=== PATIENT | female | born 1955 | race Caucasian/White ===

== ENCOUNTER 2017-06-27 15:12 | Inpatient (IN) | payer OTHER ==
[~2017-06-27] VITALS: Ht 152.4 cm; Wt 65.3 kg
[2017-06-27 15:23] VITALS: BP 110/54
--- NOTE | 2017-06-27 16:09 | NUR ---
62F BIB FAMILY C/O RECTAL PAIN X TODAY. FAMILY STATES NO RECTAL BLEEDING AT THIS TIME. HX: DIALYSIS, DM, RENAL FAILURE, HTN, STROKE (20 YEARS AGO) 1X EPISODE VOMITING TODAY; SKIN IS WARM/DRY; AAOX2 WITH EVEN AND STEADY GAIT; LUNGS CLEAR BL; HR EVEN AND REGULAR; PT DENIES ANY FEVER, CP, SOB, OR COUGH AT THIS TIME; PATIENT STATES PAIN OF 10/10 AT THIS TIME; VSS; PATIENT POSITIONED FOR COMFORT; HOB ELEVATED; BEDRAILS UP X2; BED DOWN. ER MD MADE AWARE OF PT STATUS.
--- NOTE | 2017-06-27 17:00 | NUR ---
PATIENT HAS MINIMAL URINE OUTPUT FOR UA. DR. DAS MADE AWARE, WILL CONTINUE TO MONITOR.
[2017-06-27 17:03] LABS: BASOPHILS # (AUTO) 0.1 K/uL (0.00-0.22); BASOPHILS % (AUTO) 0.9 % (0.0-2.0); EOSINOPHILS # (AUTO) 0.2 K/uL (0-0.4); EOSINOPHILS % (AUTO) 1.4 % (0.0-4.0); HEMATOCRIT 25.5 % (36-48); HEMOGLOBIN 8.3 g/dL (12.0-16.0); LYMPHOCYTES # (AUTO) 1.1 K/uL (2.5-16.5); MEAN CORPUSCULAR HEMOGLOBIN 29 pg (27-31); MEAN CORPUSCULAR HGB CONC 33 g/dL (33-37); MEAN CORPUSCULAR VOLUME 89 fL (80-94); MONOCYTES % (AUTO) 7.2 % (1.7-9.3); NEUTROPHILS # (AUTO) 11.6 K/uL (1.8-7.7); NEUTROPHILS % (AUTO) 82.5 % (42.2-75.2); PLATELET COUNT (AUTO) 302 K/uL (140-450); RED BLOOD CELL COUNT(AUTO) 2.86 MIL/uL (4.20-5.40); RED CELL DISTRIBUTION WIDTH 12.8 % (11.6-13.7)
[2017-06-27 17:27] LABS: ANION GAP 14.3 (8-16); CARBON DIOXIDE 27.7 mmol/L (21-32)
[2017-06-27 17:33] LABS: CREATININE 6.4 mg/dL (0.6-1.3)
[2017-06-27 17:35] LABS: ALBUMIN 2.2 g/dL (3.4-5.0); TOTAL BILIRUBIN 0.5 mg/dL (0.0-1.0)
[2017-06-27] MEDS ORDERED: MORPHINE SULFATE 4 MG/ML SYR IVP ONE (17:50)
[2017-06-27] MEDS ORDERED: metroNIDAZOLE 500 MG/NS PREMIX 100 ML IV ONE (18:25)
[2017-06-27] MEDS ORDERED: AMLODIPINE BESYLATE 10MG TABLE (18:41)
[2017-06-27] MEDS ORDERED: CLONIDINE (18:41)
[2017-06-27] MEDS ORDERED: NACL 0.9% 1,000 ML IV SCH (18:43)
[2017-06-27] MEDS ORDERED: LEVOFLOXACIN 750 MG/D5W PREMIX 150 ML IV SCH (18:45)
[2017-06-27] MEDS ORDERED: MORPHINE SULFATE 2 MG/ML SYR IVP PRN (18:45)
[2017-06-27] MEDS ORDERED: LORazepam 2 MG/ML VIAL IVP PRN (18:45)
[2017-06-27] MEDS ORDERED: ACETAMINOPHEN 325 MG TAB PO PRN (18:45)
[2017-06-27] MEDS ORDERED: HYDROcodone/APAP 5/325 MG 1 TAB TAB PO PRN (18:45)
[2017-06-27] MEDS ORDERED: DEXTROSE 50% 50 ML SYR IVP PRN (18:55)
[2017-06-27] MEDS ORDERED: INSULIN LISPRO SLIDING SCALE 100 UNITS/ML VIAL SUBQ PRN (18:55)
--- NOTE | 2017-06-27 19:05 | NUR ---
received report from lena patricio.
--- NOTE | 2017-06-27 19:30 | NUR ---
Pt report given to ELIESER ARAUZ ON TELEMETRY FLOOR. Transfer of care at this time.
--- NOTE | 2017-06-27 19:30 | NUR ---
Pt report given to KRISTY ARAUZ. Transfer of care at this time.
--- NOTE | 2017-06-27 19:36 | NUR ---
PT ARRIVED ON UNIT VIA GURNEY, TRANSFERRED PT TO BED, PT TOLERATED WELL, REPORT RECEIVED FROM ER NURSE KRISTY ARAUZ, PT STABLE, IV TO L AC 22G SL, PATENT, INTACT. PT ON ROOM AIR NO SOB, PT STATED HAVING NO PAIN AT THIS MOMENT, INITIAL ASSESSMENT DONE, ALL SAFETY PRECAUTION MET, WILL CONTINUE TO MONITOR. Addendum: 06/28/17 at 0127 by Nay Xie RN WRONG TIME
[2017-06-27 19:40] LABS: APPEARANCE,URINE TURBID (CLEAR); BILIRUBIN,URINE 1+ (NEGATIVE); BLOOD, URINE 1+ (NEGATIVE); COLOR,URINE YELLOW (YELLOW); LEUKOCYTE ESTERASE ,URINE 1+ (NEGATIVE); NITRITE, URINE NEGATIVE (NEGATIVE); UGLUCOSE TRACE (NEGATIVE)
[2017-06-27 19:49] LABS: RBC,URINE 0-5 (RARE) /HPF (0-5); WBC,URINE 80-100 /HPF (0-5)
[2017-06-27] MEDS ORDERED: hydrALAZINE 20 MG/ML VIAL IVP ONE (19:50)
[2017-06-27 20:30] VITALS: BP 162/63
--- NOTE | 2017-06-27 20:36 | NUR ---
PT ARRIVED ON UNIT VIA GURNEY, TRANSFERRED PT TO BED, PT TOLERATED WELL, REPORT RECEIVED FROM ER NURSE KRISTY RN, PT STABLE, IV TO L AC 22G SL, PATENT, INTACT. PT ON ROOM AIR NO SOB, PT STATED HAVING NO PAIN AT THIS MOMENT, INITIAL ASSESSMENT DONE, ALL SAFETY PRECAUTION MET, WILL CONTINUE TO MONITOR.
[2017-06-27] MEDS: metroNIDAZOLE 500 MG/NS PREMIX 100 ML IV SCH (21:00)
[2017-06-27] MEDS: BLOOD GLUCOSE MONITORING 1 DEV DEV FS SCH (21:00)
--- NOTE | 2017-06-27 21:04 | NUR ---
DUE MEDICATION GIVEN, PT TOLERATED WELL, NO DISTRESS NOTED, CALL LIGHT WITHIN REACH, WILL CONTINUE TO MONITOR.
[2017-06-27 21:45] LABS: CREATINE KINASE MB 0.7 ng/mL (0-3.6)
[2017-06-28] VITALS: BP 110/50
--- NOTE | 2017-06-28 | NUR ---
PT VOMITED, YELLOW, BILE COLORED EMESIS, ZOFRAN GIVEN, PT TOLERATE WELL, NO DISTRESS NOTED, CALL LIGHT WITHIN REACH, WILL CONTINUE TO MONITOR.
[2017-06-28 02:51] LABS: CREATINE KINASE MB 0.5 ng/mL (0-3.6)
[2017-06-28 04:00] VITALS: BP 131/53
[2017-06-28] MEDS: metroNIDAZOLE 500 MG/NS PREMIX 100 ML IV SCH ×3 (05:14→20:27)
[2017-06-28] MEDS: ONDANSETRON 4 MG/2 ML VIAL IVP PRN ×2 (05:18)
--- NOTE | 2017-06-28 05:18 | NUR ---
DUE MEDICATION GIVEN, PT FEELING NAUSEA, ZOFRAN GIVEN, PT TOLERATE WELL, NO DISTRESS NOTED, CALL LIGHT WITHIN REACH, WILL CONTINUE TO MONITOR.
--- NOTE | 2017-06-28 07:20 | NUR ---
ENDORSED PLAN OF CARE TO DAY SHIFT NURSE SIGRID ARAUZ, PT STABLE, NO DISTRESS NOTED, CALL LIGHT WITHIN REACH.
--- NOTE | 2017-06-28 07:22 | NUR ---
RECEIVED PT REPORT AT BEDSIDE PT AWAKE AND ALERT TO SELF. NO S/S OF DISTRESS. PT ON RA. NO SOB. NO COMPLAINTS OF PAIN AT THIS TIME. IV LAC 22G NS 10ML/HR. BED LOWERED WITH CALL LIGHT WITHIN REACH. WILL CONTINUE TO MONITOR.
[2017-06-28] MEDS: BLOOD GLUCOSE MONITORING 1 DEV DEV FS SCH ×4 (07:42→17:07)
[2017-06-28 07:49] LABS: HEMATOCRIT 22.7 % (36-48); HEMOGLOBIN 7.5 g/dL (12.0-16.0); MEAN CORPUSCULAR HEMOGLOBIN 30 pg (27-31); MEAN CORPUSCULAR HGB CONC 33 g/dL (33-37); MEAN CORPUSCULAR VOLUME 90 fL (80-94); PLATELET COUNT (AUTO) 218 K/uL (140-450); RED BLOOD CELL COUNT(AUTO) 2.53 MIL/uL (4.20-5.40); WHITE BLOOD COUNT (AUTO) 9.9 K/uL (4.8-10.8)
[2017-06-28 08:00] VITALS: BP 130/85
[2017-06-28 08:11] LABS: ANION GAP 14.4 (8-16); CARBON DIOXIDE 25.7 mmol/L (21-32); POTASSIUM 4.1 mmol/L (3.5-5.1)
[2017-06-28 08:27] LABS: LYMPHOCYTES % (MANUAL) 16 % (20-46); MONOCYTES % (MANUAL) 4 % (5-12)
[2017-06-28] MEDS ORDERED: INSULIN LISPRO SLIDING SCALE 100 UNITS/ML VIAL SUBQ PRN (08:35)
[2017-06-28] MEDS ORDERED: DEXTROSE 50% 50 ML SYR IVP PRN (08:35)
[2017-06-28] MEDS ORDERED: HYDROcodone/APAP 5/325 MG 1 TAB TAB PO PRN (08:35)
[2017-06-28] MEDS ORDERED: ACETAMINOPHEN 325 MG TAB PO PRN (08:35)
[2017-06-28] MEDS ORDERED: LORazepam 2 MG/ML VIAL IVP PRN (08:40)
[2017-06-28] MEDS ORDERED: MORPHINE SULFATE 2 MG/ML SYR IVP PRN (08:40)
[2017-06-28] MEDS ORDERED: ONDANSETRON 4 MG/2 ML VIAL IVP PRN (08:45)
[2017-06-28] MEDS: NACL 0.9% 1,000 ML IV SCH (08:45)
[2017-06-28 08:49] LABS: CREATININE 7.2 mg/dL (0.6-1.3)
--- NOTE | 2017-06-28 08:50 | NUR ---
RECEIVED CALL BACK FROM DR BIRTTON REGARDING CRITICAL VALUE OF CREATININE 7.2, DR ORDER TO LOOK UP PATIENT'S HEMODIALYSIS DR; HOWEVER, JONES GRANDDAUGHTER WAS NOTIFIED IF PATIENT HAS A HEMODIALYSIS DR HOWEVER SHE STATED, "MY GRANDMA JUST STARTED DIALYSIS ON Sunday06/25/17 AND WE REQUESTED HER PRIMARY DR FOR A REFERRAL FOR A DIALYSIS DR BUT I WON'T HAVE KNOW UNTIL SUNDAY." PAGED DR BRITTON TO NOTIFY HER OF GRANDDAUGHTERS UPDATE, AWAITING CALL BACK. PATIENT IS NAUSEAS AND UNABLE TO EAT AT THIS TIME, PLACED ORDERS FOR CLEAR LIQUIDS. WAS ALSO NOTIFIED OF FAMILY REQUESTING FOR EVALUATION FOR PATIENT TO HAVE PHYSICAL THERAPY AND SNF PLACEMENT, ORDERED TO PLACE ORDERS.
[2017-06-28] MEDS ORDERED: CLINICAL MONITORING MC PRN (09:40)
--- NOTE | 2017-06-28 10:43 | NUR ---
PATIENT HAS BEEN SCREENED AND CATEGORIZED MODERATE NUTRITION RISK. PATIENT WILL BE SEEN WITHIN 3-5 DAYS OF ADMISSION. 06/30/17 - 07/02/[address]
[2017-06-28 12:00] VITALS: BP 129/54
--- NOTE | 2017-06-28 12:00 | NUR ---
RECEIVED ORDERS TO PLACE ADAMS CATHETER IF PATIENT BLADDER SCAN RESULTS IN MORE THAN 300CC OF URINE. BLADDER SCAN RESULTED WITH 155CC OF URINE, NO ADAMS CATHETER INDICATED.
--- NOTE | 2017-06-28 12:30 | NUR ---
PT IS A BIT LETHARGIC, PT VOMITED X2. MEDICATED WITH ZOFRAN. STARTED A NEW IV LINE 22G TO INFUSE BLOOD. WILL ALSO GIVE PRUNE JUICE TO HELP HAVE A BOWEL MOVEMENT D/D FECAL IMPACTION. NO S/S OF DISTRESS.WILL CONTINUE TO MONITOR.
--- NOTE | 2017-06-28 12:36 | NUR ---
CM NOTE INITIAL REVIEW FAXED TO [facility] [phone] EDITH # [phone]. AWAITING PHYSICAL THERAPY EVALUATION
--- NOTE | 2017-06-28 14:20 | NUR ---
RECEIVED CALL FROM DR DEIDRE DAWKINS, UPDATED DR OF PATIENT'S BMP LAB RESULTS. IS TO PLACE ORDERS.
--- NOTE | 2017-06-28 15:26 | NUR ---
CANDACE NOTE FAXED ORDER FOR SNF TO [facility] [phone] EDITH PH# [phone] PER LINDA SZYMANSKI, SHE SPOKE WITH PATIENT'S GRANDDAUGHTER WHO SAID THAT FAMILY IS AGREEABLE TO SNF AND THEY PREFER [facility] [facility] PER [facility] CANDACE SHARMA SEND INQUIRY TO [place] FAXED INQUIRY TO [facility] [phone] ATTN: CHARLIE PH# [phone]
[2017-06-28 16:00] VITALS: BP 146/60
--- NOTE | 2017-06-28 16:00 | NUR ---
DR BRITTON ORDERED TO HAVE XR OF SMALL BOWEL FOLLOW THROUGH DONE TO R/O SBO.
--- NOTE | 2017-06-28 16:06 | NUR ---
BLOOD TRANSFUSION BEGUN.
--- NOTE | 2017-06-28 17:00 | NUR ---
PATIENT TOLERATING BLOOD TRANSFUSION WELL, PATIENT DENIES, SOB, DYSPNEA, AND PAIN. PATIENT RESTING COMFORTABLY IN BED. BED IN LOW POSITION WITH CALL LIGHT WITHIN REACH.
--- NOTE | 2017-06-28 18:31 | NUR ---
RECEIVED CALL FROM FIELD SERVICE SPECIALIST, COULD NOT PERFORM XR SMALL BOWEL FOLLOW THROUGH D/T PATIENT RETAINING OF IV CONTRAST.
--- NOTE | 2017-06-28 19:20 | NUR ---
pt report given to shift boss nurse at bedside. no s/s of distress.
--- NOTE | 2017-06-28 19:22 | NUR ---
RECEIVED REPORT FROM AM SHIFT. PT IS AWAKE AT THIS TIME. ON ROOM AIR, ATTACHED TO TELE BOX. IV ACCESS AT RIGHT AC 22G, ON GOING BLOOD TRANSFUSION AT THIS TIME. LEFT AC 22G, IVF INFUSING, PATENT, INTACT. HD ACCESS AT RIGHT SUBCLAVIAN. BED IN LOW POSITION, SAFETY MEASURE ENSURE, CALL LIGHT WITHIN REACH. WILL CONTINUE TO MONITOR.
[2017-06-28 20:00] VITALS: BP 155/67
[2017-06-28] MEDS: LACTULOSE 20 GM/30 ML UDC PO SCH (20:27)
[2017-06-28 22:36] LABS: HEMATOCRIT 26.1 % (36-48); HEMOGLOBIN 8.5 g/dL (12.0-16.0)
--- NOTE | 2017-06-28 22:40 | NUR ---
LOUIS MARION NOTIFIED OF HD SCHEDULE TOMORROW. STILL TO SIGN HD CONSENT.
--- NOTE | 2017-06-28 22:55 | NUR ---
ACCUCHECK - BLOOD SUGAR LEVEL 78MG/DL
--- NOTE | 2017-06-28 23:00 | NUR ---
BLADDER SCANNED WITH BLADDER SCANNER WITH RESULT OF 355 ML. WILL INSERT ADAMS CATH ORDERED.
--- NOTE | 2017-06-28 23:25 | NUR ---
ADAMS CATH INSERTED WITH DARK CRISTÓBAL URINE, URINE OUTPUT OF APPROXIMATELY 300ML NOTED AT THIS TIME. PT TOLERATED WELL. NO SIGNS OF DISTRESS.
[2017-06-29] VITALS (8 sets, daily range): BP systolic 141–179; BP diastolic 56–89
--- NOTE | 2017-06-29 02:30 | NUR ---
PT. RESTING, NO SOB NOTED. NO DISTRESS NOTED. WILL CONTINUE TO MONITOR.
[2017-06-29] MEDS: NACL 0.9% 1,000 ML IV SCH (03:23)
[2017-06-29] MEDS: metroNIDAZOLE 500 MG/NS PREMIX 100 ML IV SCH ×2 (04:40→13:05)
--- NOTE | 2017-06-29 05:30 | NUR ---
MORNING CARE DONE.
[2017-06-29] MEDS ORDERED: hydrALAZINE 10 MG TAB PO PRN (06:35)
--- NOTE | 2017-06-29 06:36 | NUR ---
DR. GIRON NOTIFIED OF ELEVATED BP 164/56 AT 0400 AND 161/64 AT 0600 WITH ORDERS MADE. WILL CONTINUE TO MONITOR. PT ASYMPTOMATIC, NO SIGNS OF DISTRESS. DENIES ANY PAIN AT THIS TIME.
[2017-06-29] MEDS: BLOOD GLUCOSE MONITORING 1 DEV DEV FS SCH ×3 (06:52→16:15)
--- NOTE | 2017-06-29 07:14 | NUR ---
REPORT GIVEN TO DAVONTE MATTA FOR CONTINUITY OF CARE.
--- NOTE | 2017-06-29 07:20 | NUR ---
RECEIVED PT REPORT AT BEDSIDE FROM NIGHT NURSE, PT IS AWAKE AND ALERT TO SELF. NO S/S OF ACUTE DISTRESS. PT ON RA. NO SOB. NO COMPLAINTS OF PAIN AT THIS TIME. DENIES N/V. IV LAC 22G WITH IVF'S INFUSING WELL, IV ON THE RIGHT AC SL PATENT AND INTACT. NOTED ADAMS CATHETER DRAINING YELLOW URINE. SKIN INTACT, WITH NOTED +2 PITTING EDEMA ON THE LEFT HAND. DISCUSSED PATIENT POC FOR TODAY AND PATIENT VERBALIZED UNDERSTANDING; HOWEVER PATIENT NEEDS REINFORCEMENT OF CARE D/T EPISODES OF CONFUSION. BED LOWERED WITH CALL LIGHT WITHIN REACH. SAFETY AND FALL PRECAUTIONS ARE IN PLACE.
[2017-06-29 07:37] LABS: BASOPHILS # (AUTO) 0.3 K/uL (0.00-0.22); BASOPHILS % (AUTO) 2.9 % (0.0-2.0); EOSINOPHILS # (AUTO) 0.3 K/uL (0-0.4); EOSINOPHILS % (AUTO) 3.2 % (0.0-4.0); HEMATOCRIT 25.1 % (36-48); HEMOGLOBIN 8.4 g/dL (12.0-16.0); LYMPHOCYTES # (AUTO) 1.4 K/uL (2.5-16.5); LYMPHOCYTES % (AUTO) 15.7 % (20.5-51.1); MEAN CORPUSCULAR HEMOGLOBIN 30 pg (27-31); MEAN CORPUSCULAR HGB CONC 33 g/dL (33-37); MEAN CORPUSCULAR VOLUME 89.1 fL (80-94); MONOCYTES # (AUTO) 0.5 K/uL (0.8-1.0); NEUTROPHILS # (AUTO) 6.2 K/uL (1.8-7.7); NEUTROPHILS % (AUTO) 72.2 % (42.2-75.2); PLATELET COUNT (AUTO) 202 K/uL (140-450); RED BLOOD CELL COUNT(AUTO) 2.81 MIL/uL (4.20-5.40); RED CELL DISTRIBUTION WIDTH 13.1 % (11.6-13.7); WHITE BLOOD COUNT (AUTO) 8.7 K/uL (4.8-10.8)
--- NOTE | 2017-06-29 07:50 | NUR ---
PATIENT BP IS 172/65, RECHECKED AND WAS 177/70, DR DAWKINS ORDERED TO GIVE CLONIDINE 0.1 MG PO X ONE. WILL PLACE ORDERS. PATIENT DENIES DYSPNEA, SOB, AND PAIN. PATIENT IS ASYMPTOMATIC.
[2017-06-29 07:53] LABS: ANION GAP 18.7 (8-16); CARBON DIOXIDE 21.5 mmol/L (21-32); POTASSIUM 4.2 mmol/L (3.5-5.1)
[2017-06-29 08:07] LABS: CREATININE 8.6 mg/dL (0.6-1.3)
[2017-06-29 08:27] LABS: ALBUMIN 1.9 g/dL (3.4-5.0); ANION GAP 19.5 (8-16); CARBON DIOXIDE 20.7 mmol/L (21-32); POTASSIUM 4.2 mmol/L (3.5-5.1); TOTAL BILIRUBIN 0.5 mg/dL (0.0-1.0)
[2017-06-29] MEDS ORDERED: cloNIDine 0.1 MG TAB PO SCH (08:30)
[2017-06-29 08:34] LABS: CREATININE 8.4 mg/dL (0.6-1.3)
[2017-06-29] MEDS: LACTULOSE 20 GM/30 ML UDC PO SCH (08:37)
--- NOTE | 2017-06-29 08:38 | NUR ---
PATIENT BP IS 179/70, HD NURSE IS AT BEDSIDE STATED TO HOLD CLONIDINE 0.1 MG PO MEDICATION FOR NOT TO SEE HOW PATIENT WILL TOLERATE HD.
[2017-06-29] MEDS ORDERED: SODIUM PHOSPHATE 118 ML ENEM RC SCH (09:00)
--- NOTE | 2017-06-29 10:13 | NUR ---
CANDACE NOTE CONCURRENT REVIEW FAXED TO [facility] [phone] EDITH PH# [phone]. [facility] PH# [phone] THEY ARE ACCEPTING PATIENT AND WHEN READY FOR DISCHARGE PATIENT CAN GO TO [address] CAUSEY. PER JELANI GAMBOA SHE WILL ARRANGE PATIENT'S TRANSPORT FOR DIALYSIS AND SHE IS MADE AWARE OF PATIENT'S DIALYSIS CENTER AND SCHEDULE GIVEN BY PATIENT'S GRAND DAUGHTER JONES PH# [phone]. PER [facility] CANDACE SHARMA FOR [facility] AUTH# [id number], [facility] AUTH# [id number]. CHARGE NURSE LAUREL SANTA.
--- NOTE | 2017-06-29 11:00 | NUR ---
PATIENT BP IS STILL ELEVATED AT 168/64 HR OF 57, HD NURSE AT BEDSIDE WILL GIVE CLONIDINE 0.1 MG PO MEDICATION FOR ELEVATED BP.
[2017-06-29] MEDS ORDERED: amLODIPine 5 MG TAB PO SCH (12:28)
[2017-06-29] MEDS ORDERED: hydrALAZINE 25 MG TAB PO PRN (13:15)
--- NOTE | 2017-06-29 13:19 | NUR ---
ADMINISTERED SCHEDULED MEDICATIONS, PATIENT SWALLOWED WITHOUT DIFFICULTY. ENEMA WAS NOT GIVEN EARLIER D/T PATIENT RECEIVING DIALYSIS, OUTPUT OF 700CC. HD IS DONE AND ENEMA WAS GIVEN.
[2017-06-29] MEDS ORDERED: EPOETIN ALFA 10,000 UNITS/ML VIAL IV SCH (13:28)
--- NOTE | 2017-06-29 14:45 | NUR ---
PT NOTES 1035/1230/1445 Attempted PT tx in am, but patient found to be on HD, reattempted after lunch and patient just getting off HD. Returned later and patient refused PT tx d/t being too tired from HD, edu on benefits of mobility, but cont to refuse. Patient for possible d/c today. Nursing aware.
--- NOTE | 2017-06-29 15:07 | NUR ---
SPOKE WITH AMRIT ARAUZ AND GAVE PATIENT REPORT, PATIENT WILL BE GOING TO ROOM 218C WITH IV ABX, ADAMS CATHETER WILL BE KEPT IN PLACE, RIGHT AC 22 [address] IN PLACE FOR CONTINUING OF IV ABX.
[2017-06-29] MEDS ORDERED: METR500S14 IV (15:17)
[2017-06-29] MEDS ORDERED: LEVO25SO IV (15:19)
--- NOTE | 2017-06-29 19:20 | NUR ---
DISCONTINUED IV ON THE LEFT AC WITH CANNULA INTACT D/T INFILTRATION. GAVE PATIENT REPORT AT BEDSIDE TO NIGHT NURSE, PATIENT ENDORSED IN STABLE CONDITION, PATIENT'S SISTER IS AT BEDSIDE.
--- NOTE | 2017-06-29 19:30 | NUR ---
RECEIVED REPORT FROM SIGRID ARAUZ, PT A/OX4 ON ROOM AIR. PT WILL BE TRANSFERRED VERY SOON, PT WILL LEAVE HOSPITAL WITH 22G IV TO LEFT AC AND ADAMS CATHETER IN PLACE. PT IN STABLE CONDITION, FAMILY MEMBER IN ROOM, WAITING WITH HER.
--- NOTE | 2017-06-29 19:35 | NUR ---
PT LEFT UNIT VIA WHEELCHAIR, ACCOMPANIED BY TRANSPORTER AND FAMILY MEMBER, IN STABLE CONDITION. REMOVED TELE MONITOR 28, IV TO LEFT AC IN PLACE, AND ADAMS CATHETER IN PLACE.
[2017-06-29] MEDS ORDERED: LEVOFLOXACIN 500 MG/D5W PREMIX 100 ML IV SCH (21:00)
[2017-06-30] MEDS ORDERED: amLODIPine 5 MG TAB PO SCH (09:00)
[2017-07-02] MEDS ORDERED: EPOETIN ALFA 10,000 UNITS/ML VIAL IV SCH (09:00)
== END 2017-06-29 19:30 | DRG 254 ==
LOC: MED 15:12 → MTU 18:43
PROVIDERS: ADMIT Hospitalist; ATTEND Hospitalist
PROC: 30233P1 Transfusion of Nonautologous Frozen Red Cells into Peripheral Vein, Percutaneous Approach (ICD-10-PCS; principal; 2017-06-28)
PROC: 5A1D70Z Performance of Urinary Filtration, Intermittent, Less than 6 Hours Per Day (ICD-10-PCS; 2017-06-29)
DX: K62.89 Other specified diseases of anus and rectum (principal); E43 Unspecified severe protein-calorie malnutrition; I12.0 Hypertensive chronic kidney disease with stage 5 chronic kidney disease or end stage renal disease; N18.6 End stage renal disease; E11.22 Type 2 diabetes mellitus with diabetic chronic kidney disease; K56.41 Fecal impaction; E78.5 Hyperlipidemia, unspecified; D50.9 Iron deficiency anemia, unspecified; D63.1 Anemia in chronic kidney disease; K31.9 Disease of stomach and duodenum, unspecified; N39.0 Urinary tract infection, site not specified; Z99.2 Dependence on renal dialysis; Z90.710 Acquired absence of both cervix and uterus; Z90.49 Acquired absence of other specified parts of digestive tract; Z79.2 Long term (current) use of antibiotics; Z79.4 Long term (current) use of insulin; Z79.891 Long term (current) use of opiate analgesic; Z79.899 Other long term (current) drug therapy
CPT/HCPCS: 36415; 74018; 80048; 80053; 81001; 82150; 82550; 82553; 82948; 83690; 83735; 84100; 84484; 85018; 85025; 86886; 86900; 86901; 86920; 87081; 87086; 87186; 90935; 96365; 97110; 97140; 99285; C1758; J0360; J0885; J1815; J1956; J2270; J2405; J3490; J7030; P9016

== ENCOUNTER 2019-01-18 15:00 | Inpatient (IN) | payer OTHER ==
[~2019-01-18] VITALS: Ht 149.9 cm; Wt 59.9 kg
[2019-01-18 15:00] VITALS: BP_SYST 257; BP_DIAS 133; BP_DIAS 145
[~2019-01-18 15:00] MED LIST: AMLODIPINE BESYLATE 10MG TABLE; CLONIDINE; LEVO25SO IV; METR500S14 IV
--- NOTE | 2019-01-18 15:00 | NUR ---
BIBA FROM [facility], C/O SOB, CHEST AND BODY PAIN, X1 HR. PT MISSED HER , , AND TODAY DIALYSIS. SPO2 94% ON O2 4L NC. FIRST BP READING UNREADABLE/145, SECOND BP READING 257/133 HX ANEMIA, HTN, DM, ESRD (TTHS) RX HYDRALAZINE, PHOSLO, LOSARTAN, SEVELAMER, MELATONIN. PT SPANISHING SPEAKING.AWAKE, ALERT.ABLE TO MAKE SIMPLE NEEDS KNOWN. LABORED SHALLOW TACHYPENEA NOTED. RR: 35S .BEDSIDE MONITOR SHOWS SR. PT LOOKS DUSKY AND PALE. HAS IV # 20 TO RIGHT WRIST AND PT HAS ONE HD ACCESS TO RIGHT CHEST. PT STATED SHE MISSED SUNDAY DIALYSIS DUE TO HD ACCESS DID NOT WORK. PT WENT TO DIALYSIS CENTER TODAY.DUE TO PT'S RR AND HIGH BP SO UNABLE TO GIVE PT DIALYSIS. PATIENT POSITIONED FOR COMFORT; HOB ELEVATED; BEDRAILS UP X2; BED DOWN. ER MD MADE AWARE OF PT STATUS.
--- NOTE | 2019-01-18 15:00 | NUR ---
Patient BIBA ALS, transferred to bed 6. RN evaluating patient at bedside.
--- NOTE | 2019-01-18 15:13 | NUR ---
Dr. Baugh evaluating patient at bedside.
[2019-01-18] MEDS ORDERED: cloNIDine 0.1 MG TAB PO ONE (15:15)
[2019-01-18] MEDS ORDERED: hydrALAZINE 20 MG/ML VIAL IVP ONE (15:15)
--- NOTE | 2019-01-18 15:20 | NUR ---
process technician at bedside.
[2019-01-18 15:46] LABS: HEMATOCRIT 38.1 % (36-48); HEMOGLOBIN 12.6 g/dL (12.0-16.0); MEAN CORPUSCULAR HEMOGLOBIN 33 pg (27-31); MEAN CORPUSCULAR HGB CONC 33 g/dL (33-37); MEAN CORPUSCULAR VOLUME 98.7 fL (80-94); PLATELET COUNT (AUTO) 275 K/uL (140-450); RED BLOOD CELL COUNT(AUTO) 3.86 MIL/uL (4.20-5.40); RED CELL DISTRIBUTION WIDTH 14.7 % (11.6-13.7); WHITE BLOOD COUNT (AUTO) 10.3 K/uL (4.8-10.8)
[2019-01-18] MEDS ORDERED: SEVE800T6 PO (16:05)
[2019-01-18] MEDS ORDERED: HYDR100T79 PO (16:05)
[2019-01-18] MEDS ORDERED: MELA5TAB6 PO (16:05)
[2019-01-18] MEDS ORDERED: PHO667 PO (16:05)
[2019-01-18] MEDS ORDERED: LOSA50TA57 PO (16:05)
[2019-01-18 16:06] LABS: EOSINOPHILS % (MANUAL) 2 % (0-4); LYMPHOCYTES % (MANUAL) 3 % (20-46); MONOCYTES % (MANUAL) 3 % (5-12)
[2019-01-18 16:09] LABS: ALBUMIN 3.7 g/dL (3.4-5.0); ANION GAP 33.2 (8-16); TOTAL BILIRUBIN 0.7 mg/dL (0.0-1.0)
[2019-01-18 16:11] LABS: CREATININE 15.8 mg/dL (0.6-1.3); POTASSIUM 6.2 mmol/L (3.5-5.1)
[2019-01-18] MEDS ORDERED: INSULIN REGULAR, HUMAN 100 UNIT/ML VIAL SUBQ ONE (16:15)
[2019-01-18] MEDS ORDERED: DEXTROSE 50% 50 ML SYR IVP ONE (16:15)
[2019-01-18] MEDS ORDERED: SODIUM POLYSTYRENE 15 GM/60 ML UDBTL PO ONE (16:15)
[2019-01-18] MEDS ORDERED: ALBUTEROL 0.083% 2.5 MG/3 ML NEBU INH ONE (16:15)
--- NOTE | 2019-01-18 16:23 | NUR ---
Breathing treatment administered at bedside by respiratory therapist.
--- NOTE | 2019-01-18 17:00 | NUR ---
PT RESTING IN BED. PT STATED SHE FEELS BETTER.
[2019-01-18] MEDS ORDERED: NACL 0.9% 1,000 ML IV SCH (17:05)
[2019-01-18] MEDS ORDERED: HYDROcodone/APAP 7.5/325 MG 1 TAB PO PRN (17:05)
[2019-01-18] MEDS ORDERED: ACETAMINOPHEN 325 MG TAB PO PRN (17:05)
[2019-01-18] MEDS ORDERED: MORPHINE SULFATE 2 MG/ML SYR IVP PRN (17:05)
[2019-01-18] MEDS ORDERED: DOCUSATE SODIUM 100 MG GELCAP PO PRN (17:05)
[2019-01-18] MEDS ORDERED: ONDANSETRON 4 MG/2 ML VIAL IM/IVP PRN (17:05)
[2019-01-18] MEDS ORDERED: LORazepam 2 MG/ML VIAL IVP ONE (17:30)
--- NOTE | 2019-01-18 17:30 | NUR ---
CALLED TELE CHARGE NURSE, THE BED IS NOT REDAY YET.
[2019-01-18 18:15] VITALS: BP 210/89
--- NOTE | 2019-01-18 18:15 | NUR ---
PT AWAKE, ALERT. ON O2 NC 3L/MIN WITH O2 SATS 98%. TRANSFERRED PT TO TELE 115. ALL PERSONAL BELONGINGS WITH PT. REPORT GIVEN TO YOANA ARAUZ.
--- NOTE | 2019-01-18 18:15 | NUR ---
RECEIVED PT FROM ER NURSE, ADELAIDE, PT IS AWAKE AND ON O2 3L NC, PERIPHERAL LINE ON THE RT AC G. 20 ON SALINE LOCK, HAS A RT UPPER CHEST PORT FOR DIALYSIS, DIALYSIS IS EVERY T-- S, PT IS LETHARGIC, VITAL SIGNS TAKEN AND BP IS 210/89, PULSE IS 84, TEMPERATURE IS 97.3 AND O2 SATURATION IS 98%, NO SIGN OF DISTRESS NOTED, RESPIRATION IS EVEN, WILL CONTINUE TO MONITOR PT.
--- NOTE | 2019-01-18 18:20 | NUR ---
MRSA SWAB DONE AND SAMPLE WAS SENT TO LAB.
[2019-01-18 18:24] LABS: PROTHROMBIN TIME 10.4 secs (10.8-13.4)
[2019-01-18 18:35] LABS: CHOL/HDL RATIO 3.1 (1-4.5); FREE T4 (FREE THYROXINE) 1.21 ng/dL (0.76-1.46); MAGNESIUM 2.8 mg/dL (1.8-2.4); THYROID STIMULATING HORMONE 3.58 uIU/mL (0.34-3.74)
[2019-01-18] MEDS ORDERED: DEXTROSE 50% 50 ML SYR IVP PRN (18:50)
[2019-01-18] MEDS ORDERED: MELATONIN 3 MG TAB PO PRN (18:50)
[2019-01-18] MEDS ORDERED: INSULIN LISPRO SLIDING SCALE 100 UNITS/ML VIAL SUBQ PRN (18:50)
[2019-01-18] MEDS ORDERED: cloNIDine 0.1 MG TAB PO PRN (18:50)
[2019-01-18 19:02] LABS: PHOSPHORUS 12.1 mg/dL (2.5-4.9)
--- NOTE | 2019-01-18 19:20 | NUR ---
ENDORSED PT TO LOBBY CONCIERGE NURSEPAULINA FOR CONTINUITY OF CARE.
--- NOTE | 2019-01-18 19:21 | NUR ---
RECEIVED BEDSIDE REPORT FROM DAY RN. PT IS AAOX2. ON NC 3L O2. RR HIGH 26. B/P ELEVATED MD IS AWARE. C/C SOB AND CÉSAR CATH NOT FUNCTIONING ORDER TO INSERT NEW CÉSAR CATH PT UNABLE TO SIGN WILL NOTIFY MD TO OBTAIN CONSENT. SKIN IS INTACT. DIMINISHED BREATH SOUNDS. PT STATES STILL PRODUCES SOME URINE OUTPUT. LAST HD SUNDAY CANNOT RECALL OUTPUT. B/P 210/89 HR 85 DAY RN NOTIFIED MD NO NEW ORDERS. IV ON R WRIST 20G. COMING FROM HOME. SKIN IS INTACT. FALL PRECAUTION IN PLACED. CALL LIGHT IS WITHIN REACH. WILL CONTINUE TO MONITOR,
[2019-01-18] MEDS ORDERED: CALCIUM ACETATE 667 MG TAB PO ONE (19:30)
[2019-01-18] MEDS ORDERED: ALBUTEROL SULFATE/IPRATROPIU 3 ML SOL IH PRN (19:40)
[2019-01-18 20:00] VITALS: BP 194/94
[2019-01-18] MEDS ORDERED: hydrALAZINE 20 MG/ML VIAL IVP SCH (20:00)
--- NOTE | 2019-01-18 20:30 | NUR ---
TRANSPORT PATIENT TO CT OF HEAD WITHOUT CONTRAST. WENT WITH PATIENT.
--- NOTE | 2019-01-18 21:00 | NUR ---
BACK ON THE FLOOR. PATIENT TOLERATED WELL.
--- NOTE | 2019-01-18 21:30 | NUR ---
DR EPPS WILL PLACE CÉSAR CATH ON R IJ VS L IJ. TECH IN ROOM. TIMED OUT PERFORMED.
--- NOTE | 2019-01-18 21:45 | NUR ---
CÉSAR CATH ON R IJ PLACED BY . PATIENT TOLERATED WELL. WILL ORDER STAT CXR TO VERIFY PLACEMENT. SPOKE WITH LOUIS DIALYSIS NURSE. SHE WILL CALL DIALYSIS NURSE. HD STAT ORDERED BY DR DAWKINS. WILL F/U
[2019-01-18] MEDS: BLOOD GLUCOSE MONITORING 1 DEV DEV FS SCH (21:58)
[2019-01-18 22:06] LABS: ANION GAP 27.8 (8-16); CARBON DIOXIDE 19.6 mmol/L (21-32); POTASSIUM 5.4 mmol/L (3.5-5.1)
--- NOTE | 2019-01-18 22:08 | NUR ---
CALL FROM LAB GLUCOSE 58 GAVE ORANGE JUICE. WILL RECHECK BLOOD SUGAR IN 30 MIN. PT IS IN STABLE CONDITION. GETTING CXR DONE.
[2019-01-18 22:09] LABS: CREATININE 16.3 mg/dL (0.6-1.3)
[2019-01-18] MEDS ORDERED: PIPERACILLIN/TAZOBACTAM 2.25 GM in DEXTROSE 5% 50 ML IV SCH (22:30)
--- NOTE | 2019-01-18 22:45 | NUR ---
RECHECKED BLOOD SUGAR 88. PT NOW RECEIVING DIALYSIS. DIALYSIS NURSE IS AT BEDSIDE.
[2019-01-19] VITALS: BP 143/70
--- NOTE | 2019-01-19 | NUR ---
VITAL SIGNS ARE WITHIN NORMAL LIMITS: 143/70 HR 74. DIALYSIS NURSE IS AT BEDSIDE. SAFETY MEASURES ARE IN PLACE. HOLDING ROBERTO ZOSYN D/T HD. WILL CONTINUE TO MONITOR.
--- NOTE | 2019-01-19 01:00 | NUR ---
HD COMPLETE PER DIALYSIS NURSE REMOVED 3.5L LATEST BP: 117/66 HR 70. PT RESTING COMFORTABLY IN BED WITH EYES CLOSED. NO S/S OF DISTRESS. CALL LIGHT IS WITHIN REACH. WILL CONTINUE TO MONITOR.
[2019-01-19] MEDS ORDERED: PIPERACILLIN/TAZOBACTAM 2.25 GM VIAL IV ONE ×2 (01:41→04:58)
--- NOTE | 2019-01-19 03:00 | NUR ---
PATIENT IS RESTING COMFORTABLY IN BED WITH EYES CLOSED. RESPIRATIONS ARE EQUAL AND UNLABORED. SAFETY MEASURES ARE IN PLACE. CALL LIGHT IS WITHIN REACH.
[2019-01-19 04:00] VITALS: BP 158/83
--- NOTE | 2019-01-19 04:15 | NUR ---
VITAL SIGNS ARE WITHIN NORMAL LIMITS. SAFETY MEASURES ARE IN PLACE. CALL LIGHT IS WITHIN REACH. WILL CONTINUE TO MONITOR
[2019-01-19] MEDS ORDERED: PIPERACILLIN/TAZOBACTAM 2.25 GM in DEXTROSE 5% 50 ML IV SCH (05:00)
--- NOTE | 2019-01-19 05:30 | NUR ---
BLOOD SUGAR IS 104 NO COVERAGE NEEDED. PT HAS SNACK AT BEDSIDE. PT CLEANED AND REPOSITION FOR COMFORT. ALL NEEDS MET AT THIS TIME. CALL LIGHT IS WITHIN REACH.
[2019-01-19] MEDS: BLOOD GLUCOSE MONITORING 1 DEV DEV FS SCH ×4 (06:17→20:13)
[2019-01-19] MEDS: ALBUTEROL SULFATE/IPRATROPIU 3 ML SOL IH SCH ×3 (06:32→20:18)
--- NOTE | 2019-01-19 07:15 | NUR ---
RECEIVED REPORT FROM IT DIRECTOR RN. PATIENT IS AAO X2, ON 3L NC WITH ORDERS TO MAINTAIN O2 >92%. IV TO RIGHT WRIST AT TKO RATE. FULL CODE, NKA, CAME FROM HOME. STANDARD PRECAUTIONS, PT IS TO GET A NEW PERMACATH ON SUNDAY, CONSENT STILL NEEDS TO BE OBTAINED. DIALYSIS TO BE DONE TODAY PER DR FUNES WELL A SWALLOW EVAL. WILL CONTINUE WITH PLAN OF CARE.
--- NOTE | 2019-01-19 07:18 | NUR ---
GAVE BEDSIDE REPORT TO DAY RN. PT ENDORSED IN STABLE CONDITION.
[2019-01-19 08:00] VITALS: BP 166/73
[2019-01-19] MEDS: hydrALAZINE 25 MG TAB PO SCH ×3 (09:00→17:19)
[2019-01-19] MEDS ORDERED: CALCIUM ACETATE 667 MG TAB PO SCH (09:00)
[2019-01-19] MEDS ORDERED: LOSARTAN 50 MG TAB PO SCH (09:00)
--- NOTE | 2019-01-19 09:00 | NUR ---
PER DR DAWKINS, ORDERED A STAT CMP TO SEE UPDATED LABS.
--- NOTE | 2019-01-19 09:30 | NUR ---
ROAD ROLLER OPERATOR AND HER INSTRUCTOR ADMINISTERED MORNING MEDICATION TO PATIENT. PATIENT WAS ABLE TO SWALLOW PILLS PO WITHOUT CRUSHING. WITHHELD COZAAR AND HYDRALAZINE D/T POSSIBLE DIALYSIS TODAY, PENDING ON DR DAWKINS.
[2019-01-19] MEDS: SEVELAMER CARBONATE 800 MG TAB PO SCH ×3 (09:43→17:00)
[2019-01-19] MEDS: CALCIUM ACETATE 667 MG TAB PO SCH ×3 (09:43→17:00)
[2019-01-19] MEDS: LACTOBACILLUS RHAMNOSUS GG 1 EACH CAP PO SCH (09:44)
[2019-01-19 09:59] LABS: HEMATOCRIT 33.5 % (36-48); HEMOGLOBIN 10.9 g/dL (12.0-16.0); MEAN CORPUSCULAR HEMOGLOBIN 32 pg (27-31); MEAN CORPUSCULAR HGB CONC 33 g/dL (33-37); MEAN CORPUSCULAR VOLUME 98.9 fL (80-94); PLATELET COUNT (AUTO) 235 K/uL (140-450); RED BLOOD CELL COUNT(AUTO) 3.39 MIL/uL (4.20-5.40); RED CELL DISTRIBUTION WIDTH 14.4 % (11.6-13.7); WHITE BLOOD COUNT (AUTO) 8.5 K/uL (4.8-10.8)
[2019-01-19 10:21] LABS: ALBUMIN 3.2 g/dL (3.4-5.0); ANION GAP 23.9 (8-16); POTASSIUM 3.9 mmol/L (3.5-5.1); TOTAL BILIRUBIN 0.9 mg/dL (0.0-1.0)
[2019-01-19 10:39] LABS: CREATININE 10.5 mg/dL (0.6-1.3); PHOSPHORUS 9.7 mg/dL (2.5-4.9)
[2019-01-19 10:40] LABS: BASOPHILS % (MANUAL) 0 % (0-2); EOSINOPHILS % (MANUAL) 0 % (0-4); LYMPHOCYTES % (MANUAL) 13 % (20-46); MONOCYTES % (MANUAL) 7 % (5-12)
--- NOTE | 2019-01-19 10:40 | NUR ---
RECEIVED CRITICAL LAB VALUE OF PHOS 9.7, BUN 68, CREA 10.5. DID NOT INFORM DR DAWKINS D/T LABS TRENDING DOWN AND DIALYSIS TO BE DONE TODAY.
--- NOTE | 2019-01-19 10:43 | NUR ---
SPOKE TO RESIDENTS ABOUT GETTING TWO DOCTORS TO CONSENT TO NEW PERMACATH INSERTION.
--- NOTE | 2019-01-19 10:48 | NUR ---
RECEIVED CRITICAL OF TROPONIN 1.166. DR DAWKINS MADE AWARE. NO CHANGE IN ORDERS.
[2019-01-19 12:00] VITALS: BP 170/76
--- NOTE | 2019-01-19 12:00 | NUR ---
PAGED LOUIS REGARDING HD ORDER FOR TODAY, AWAITING FOR CALL BACK.
--- NOTE | 2019-01-19 12:30 | NUR ---
ADMINISTERED PM MEDICATION WITH APPLE JUICE FOR LOW BLOOD SUGAR OF 88. NO COMPLAINTS AT THIS TIME.
--- NOTE | 2019-01-19 14:10 | NUR ---
PATIENT RESTING QUIETLY IN BED. PATIENT TOOK NASAL CANNULA OFF AND IS SATTING 95 ON ROOM AIR. NO SIGNS OF DISTRESS AT THIS MOMENT. WILL CONTINUE TO MONITOR.
[2019-01-19 16:00] VITALS: BP 195/89
--- NOTE | 2019-01-19 17:00 | NUR ---
LOUIS FROM [facility] CALLED BACK, STATED SHE WILL SEND A NURSE JOSUE. LOUIS ALSO MADE AWARE REGARDING THE TPA ORDER FOR HD NURSE.
--- NOTE | 2019-01-19 17:19 | NUR ---
ADMINISTERED EVENING DOSE OF HYDRALAZINE FOR HIGH BP OF 195/89. DID NOT ADMIN OTHER MEDICATION D/T DIALYSIS TREATMENT SOON.
--- NOTE | 2019-01-19 18:00 | NUR ---
PATIENT IS RESTING QUIETLY AWAKE IN BED. NO SIGNS OF DISTRESS. PT AWAITING DIALYSIS TREATMENT FOR THE DAY. WILL ENDORSE TO NIGHT RN FOR CONTINUITY OF CARE.
--- NOTE | 2019-01-19 19:30 | NUR ---
RECEIVED BEDSIDE REPORT FROM DAY RN. PT IS AAOX2.BURMESE SPEAKING ONLY ON NC 2L O2. SOB AND PERMA CATH ON L CHEST NOT FUNCTIONING HAS NEW CÉSAR CATH ON R IJ INSERTED ON 01/18. SKIN IS INTACT. DIMINISHED BREATH SOUNDS. PT STATES STILL PRODUCES SOME URINE OUTPUT. LAST HD ON 01/18 3.5L OUTPUT.IV ON R WRIST 20G TKO. COMING FROM HOME. SKIN IS INTACT. FALL PRECAUTION IN PLACED. CALL LIGHT IS WITHIN REACH. WILL CONTINUE TO MONITOR. Addendum: 01/19/19 at 9232 by Mirian Mack RN PERMA CATH ON R CHEST AND CÉSAR CATH ON L IJ
--- NOTE | 2019-01-19 19:45 | NUR ---
DIALYSIS NURSE AT BEDSIDE. PATIENT NOW RECEIVING HD PT IS IN STABLE CONDITION. SAFETY MEASURES ARE IN PLACE. WILL CONTINUE TO MONITOR
[2019-01-19 20:00] VITALS: BP 185/84
[2019-01-19] MEDS ORDERED: ALTEPLASE 2 MG VIAL MC ONE (20:25)
--- NOTE | 2019-01-19 21:22 | NUR ---
DIALYSIS NURSE ADMINISTERED 2MG OF TPA ON BOTH PORTS ON R PERMA CATH AND TOMORROW DIALYSIS NURSE WILL REMOVE. SYRINGE WERE LEFT ON PORTS AND LABELED PER ORDERS. SAFETY MEASURES ARE IN PLACE. WILL CONTINUE TO MONITOR.
--- NOTE | 2019-01-19 22:00 | NUR ---
PATIENT STILL GETTING HD VSS. DIALYSIS NURSE AT BEDSIDE. SAFETY MEASURES ARE IN PLACE. WILL CONTINUE TO MONITOR.
[2019-01-19] MEDS: LOSARTAN 50 MG TAB PO SCH (23:07)
--- NOTE | 2019-01-19 23:07 | NUR ---
HD COMPLETE REMOVED 3L OUTPUT AND TPA IN PORT TO BE REMOVED DURING NEXT DIALYSIS. VSS 156/86 HR 80. ROBERTO MEDICATIONS FOR 2100 GIVEN NOW COZAAR AND ZOSYN. SAFETY MEASURES ARE IN PLACE. CALL LIGHT IS WITHIN REACH. WILL CONTINUE TO MONITOR.
[2019-01-19] MEDS: PIPERACILLIN/TAZOBACTAM 2.25 GM in DEXTROSE 5% 50 ML IV SCH (23:08)
[2019-01-20] VITALS: BP 156/86
--- NOTE | 2019-01-20 00:09 | NUR ---
VITAL SIGNS ARE WITHIN NORMAL LIMITS. ALL NEEDS MET AT THIS TIME. CALL LIGHT IS WITHIN REACH. WILL CONTINUE TO MONITOR.
[2019-01-20 04:00] VITALS: BP 155/81
--- NOTE | 2019-01-20 04:00 | NUR ---
VITAL SIGNS ARE WITHIN NORMAL LIMITS. OBTAINED CONSENT FOR REMOVAL OF OLD AND PLACEMENT OF NEW TUNNEL CATH. USED BLUE PHONE SLOT FLOOR SUPERVISOR : [employer] # [id number]. ALL QUESTIONS WERE ANSWERED. WILL CONTINUE TO MONITOR.
--- NOTE | 2019-01-20 05:41 | NUR ---
BLOOD SUGAR IS 98 NO COVERAGE NEEDED. REINFORCED PT SHE IS NPO FOR PROCEDURE TODAY AT 1000. PT VERBALIZED UNDERSTANDING. ALL NEEDS MET AT THIS TIME. WILL CONTINUE TO MONITOR.
[2019-01-20] MEDS: BLOOD GLUCOSE MONITORING 1 DEV DEV FS SCH ×4 (05:43→21:00)
--- NOTE | 2019-01-20 06:30 | NUR ---
PATIENT SITTING UP IN BED TALKING TO SISTER ON THE PHONE. SISTER'S PHONE NUMBER [phone]. PT IS CALM WITH NO S/S OF DISTRESS. CALL LIGHT IS WITHIN REACH. WILL CONTINUE TO MONITOR.
[2019-01-20] MEDS: ALBUTEROL SULFATE/IPRATROPIU 3 ML SOL IH SCH ×3 (07:00→18:47)
--- NOTE | 2019-01-20 07:00 | NUR ---
RECEIVED REPORT FROM RADIOTELEGRAPH OPERATOR RN. PATIENT IS AWAKE AND IN BED UPON ENDORSEMENT. PATIENT IS AAO X4, ON ROOM AIR. IV TO RIGHT WRIST AT TKO RATE. PATIENT IS NPO SINCE MIDNIGHT FOR SCHEDULED NEW PERMACATH INSERTION. WILL CONTINUE WITH PLAN OF CARE.
--- NOTE | 2019-01-20 07:09 | NUR ---
GAVE BEDSIDE REPORT TO DAY RN. PT ENDORSED IN STABLE CONDITION.
[2019-01-20 07:52] LABS: HEMATOCRIT 39.9 % (36-48); HEMOGLOBIN 13.2 g/dL (12.0-16.0); MEAN CORPUSCULAR HEMOGLOBIN 33 pg (27-31); MEAN CORPUSCULAR HGB CONC 33 g/dL (33-37); MEAN CORPUSCULAR VOLUME 98.4 fL (80-94); PLATELET COUNT (AUTO) 280 K/uL (140-450); RED BLOOD CELL COUNT(AUTO) 4.05 MIL/uL (4.20-5.40); RED CELL DISTRIBUTION WIDTH 14.5 % (11.6-13.7); WHITE BLOOD COUNT (AUTO) 7.7 K/uL (4.8-10.8)
[2019-01-20 08:00] VITALS: BP 174/85
[2019-01-20] MEDS: SEVELAMER CARBONATE 800 MG TAB PO SCH ×4 (08:00→17:02)
--- NOTE | 2019-01-20 08:27 | NUR ---
PATIENT HAS BEEN SCREENED AND CATEGORIZED MODERATE NUTRITION RISK. PATIENT WILL BE SEEN WITHIN 3-5 DAYS OF ADMISSION. 01/21/19 01/23/[address]
[2019-01-20 08:40] LABS: ANION GAP 20.6 (8-16); CARBON DIOXIDE 23.6 mmol/L (21-32); POTASSIUM 4.2 mmol/L (3.5-5.1)
[2019-01-20 08:42] LABS: CREATININE 7.5 mg/dL (0.6-1.3)
[2019-01-20 09:08] LABS: T4 (THYROXINE) 8.1 ug/dL (4.5-12.0)
--- NOTE | 2019-01-20 09:10 | NUR ---
ADMINISTERED MORNING MEDICATION. PATIENT TOLERATED WELL. PATIENT IS SITTING UP AT BEDSIDE AND AMBULATED WITH PT.
[2019-01-20] MEDS: hydrALAZINE 25 MG TAB PO SCH ×3 (09:40→17:02)
[2019-01-20] MEDS: PIPERACILLIN/TAZOBACTAM 2.25 GM in DEXTROSE 5% 50 ML IV SCH (09:40)
[2019-01-20] MEDS: LOSARTAN 50 MG TAB PO SCH (09:40)
[2019-01-20] MEDS: CALCIUM ACETATE 667 MG TAB PO SCH ×3 (09:41→17:02)
[2019-01-20] MEDS: LACTOBACILLUS RHAMNOSUS GG 1 EACH CAP PO SCH (09:41)
[2019-01-20 09:42] LABS: EOSINOPHILS % (MANUAL) 2 % (0-4); LYMPHOCYTES % (MANUAL) 12 % (20-46); MONOCYTES % (MANUAL) 10 % (5-12)
--- NOTE | 2019-01-20 11:30 | NUR ---
BLOOD SUGAR OF 88. NO INSULIN COVERAGE NEEDED.
[2019-01-20 12:00] VITALS: BP 178/88
[2019-01-20] MEDS: FERROUS SULFATE 325 MG TABEC PO SCH ×2 (12:00→17:02)
--- NOTE | 2019-01-20 12:26 | NUR ---
*S.T. Note* MD order for bedside swallow eval received, chart reviewed. Spoke w/ RN Kevin, who indicated that pt is currently being held NPO for possible perma cath replacement and is awaiting confirmation from MD and will call HIDE STRETCHER HAND with MD's decision. Will hold eval at this time. Time 0231
--- NOTE | 2019-01-20 13:25 | NUR ---
RECEIVED REPORT FROM DAVONTE ROY. PT AAOX4, NO C/O PAIN AT THIS TIME. RESPIRATIONS EVEN AND UNLABORED ON RA. SKIN IS INTACT, WARM TO TOUCH. PT ON FALL RISK PRECAUTIONS, SAFETY MEASURES IN PLACE, CALL LIGHT WITHIN REACH. WILL CONTINUE TO MONITOR.
--- NOTE | 2019-01-20 15:30 | NUR ---
USED [employer] PHONE, CLINICAL COUNSELOR JOSH #[phone]. PT GIVEN UPDATE ON PLAN FOR DIALYSIS TOMORROW AND POSSIBLE REPLACEMENT OF PERMACATH. PT IS AWARE THAT SHE WILL BE ON NPO AFTER MIDNIGHT TONIGHT. PT AGREES AND VERBALIZES UNDERSTANDING. ALL QUESTIONS ANSWERED.
[2019-01-20 16:00] VITALS: BP 156/87
--- NOTE | 2019-01-20 16:04 | NUR ---
PT ENDORSED TO DAVONTE ROY. PT HAS NO SIGNS OF DISTRESS AT THIS TIME.
--- NOTE | 2019-01-20 16:59 | NUR ---
BLOOD SUGAR OF 173. PT REFUSED INSULIN COVERAGE AND STATED SHES NEVER TAKEN INSULIN EVER BEFORE.
[2019-01-20] MEDS ORDERED: HEPARIN PER PHARMACY MC PRN (17:35)
[2019-01-20] MEDS: hePARIN / DEXT 5% PREMIX 250 ML IV SCH (18:48)
--- NOTE | 2019-01-20 18:53 | NUR ---
BEGAN HEPARIN CONTINUOUS DRIP. ADMINISTERED 3600 U BOLUS PER ORDER, BEGAN INITIAL DRIP AT 700U, 7ML/HR
--- NOTE | 2019-01-20 19:15 | NUR ---
RECEIVED TROPONIN LEVEL CRITICAL OF 0.590. TRENDING DOWN
[2019-01-21] MEDS: hePARIN / DEXT 5% PREMIX 250 ML IV SCH ×2 (02:49→12:23)
--- NOTE | 2019-01-21 02:49 | NUR ---
PTT CAME BACK @35.8. PER PROTOCOL 1800 UNIT BOLUS AND INCREASE BY 100U/HR. DRIP NOW INFUSING@8ML/HR OR 800U/HR.
[2019-01-21] MEDS: PIPERACILLIN/TAZOBACTAM 2.25 GM in DEXTROSE 5% 50 ML IV SCH ×3 (03:15→21:48)
[2019-01-21] MEDS: LOSARTAN 50 MG TAB PO SCH ×3 (03:24→21:48)
[2019-01-21] MEDS: ALBUTEROL SULFATE/IPRATROPIU 3 ML SOL IH SCH ×3 (06:47→19:07)
--- NOTE | 2019-01-21 07:20 | NUR ---
RECEIVED BEDSIDE REPORT FROM GENERAL OPERATIONS AGENT NURSE. PATIENT IS AWAKE, ALERT AND ORIENTEDX4. NO SIGNS OF DISTRESS ON RA. SKIN IS INTACT. AMBULATORY W ASSIST. FALL RISK PROTOCOL IN PLACE. R SIDE PERMACATH, LIJ CÉSAR CATH. BOTH ARE CLEAN AND DRY. IV ON R FA 20G INFUSING NS AT 10 R HAND 20G INFUSING HEPARIN DRIP AT 8ML/HR. BOTH CLEAN, DRY AND INTACT. PATIENT IS CONTINENT. ABLE TO MAKE NEEDS KNOWN. BED IN LOW POSITION. CALL LIGHT WITHIN REACH
[2019-01-21 08:00] VITALS: BP 162/60
[2019-01-21] MEDS: SEVELAMER CARBONATE 800 MG TAB PO SCH ×4 (08:00→17:20)
[2019-01-21 08:11] LABS: BASOPHILS % (AUTO) 0.5 % (0.0-2.0); EOSINOPHILS # (AUTO) 0.3 K/uL (0-0.4); EOSINOPHILS % (AUTO) 2.8 % (0.0-4.0); HEMATOCRIT 39.3 % (36-48); HEMOGLOBIN 13.1 g/dL (12.0-16.0); LYMPHOCYTES # (AUTO) 1.9 K/uL (2.5-16.5); LYMPHOCYTES % (AUTO) 20.5 % (20.5-51.1); MEAN CORPUSCULAR HEMOGLOBIN 33 pg (27-31); MEAN CORPUSCULAR HGB CONC 33 g/dL (33-37); MEAN CORPUSCULAR VOLUME 97.6 fL (80-94); MONOCYTES # (AUTO) 1.1 K/uL (0.8-1.0); MONOCYTES % (AUTO) 12.5 % (1.7-9.3); NEUTROPHILS # (AUTO) 5.8 K/uL (1.8-7.7); NEUTROPHILS % (AUTO) 63.7 % (42.2-75.2); PLATELET COUNT (AUTO) 280 K/uL (140-450); RED BLOOD CELL COUNT(AUTO) 4.03 MIL/uL (4.20-5.40); RED CELL DISTRIBUTION WIDTH 14.9 % (11.6-13.7); WHITE BLOOD COUNT (AUTO) 9.2 K/uL (4.8-10.8)
[2019-01-21] MEDS: BLOOD GLUCOSE MONITORING 1 DEV DEV FS SCH ×4 (08:14→21:46)
[2019-01-21 08:40] LABS: ANION GAP 21.2 (8-16); CARBON DIOXIDE 23.2 mmol/L (21-32); POTASSIUM 4.4 mmol/L (3.5-5.1)
[2019-01-21 08:46] LABS: PHOSPHORUS 8.4 mg/dL (2.5-4.9)
[2019-01-21 08:50] LABS: CREATININE 9.6 mg/dL (0.6-1.3)
[2019-01-21] MEDS: hydrALAZINE 25 MG TAB PO SCH ×3 (09:00→17:00)
[2019-01-21] MEDS: LACTOBACILLUS RHAMNOSUS GG 1 EACH CAP PO SCH (09:28)
[2019-01-21] MEDS: FERROUS SULFATE 325 MG TABEC PO SCH ×3 (09:29→17:21)
[2019-01-21] MEDS: CALCIUM ACETATE 667 MG TAB PO SCH ×3 (09:29→17:21)
--- NOTE | 2019-01-21 09:37 | NUR ---
ADMINISTERED MEDS. PATIENT TOLERATED WELL. EDUCATED ON SIDE EFFECTS. HELD B/P MEDS. PATIENT IS GETTING HD SOON. WILL CONTINUE TO MONITOR
--- NOTE | 2019-01-21 10:25 | NUR ---
*S.T. Note* Order stands for bedside swallow eval; chart reviewed. Spoke w/ RN Shagufta who reported that pt is again NPO and is scheduled for procedure to replace Permacath. Will hold eval again, at this time and attempt to complete eval tomorrow 01/22/19. Time 1016
--- NOTE | 2019-01-21 11:00 | NUR ---
PATIENT IN NO DISTRESS. WILL CONTINUE TO MONITOR THE PATIENT
[2019-01-21 12:00] VITALS: BP 174/78
--- NOTE | 2019-01-21 12:14 | NUR ---
PATIENT GETTING DIALYSIS DONE. HELD PO MEDICATIONS AT THIS TIME. PATIENT TOLERATING WELL. WILL CONTINUE TO MONITOR
--- NOTE | 2019-01-21 13:30 | NUR ---
HD DONE 2L OUT
--- NOTE | 2019-01-21 13:56 | NUR ---
PT REFUSES HHN
[2019-01-21 14:30] VITALS: BP 143/83
--- NOTE | 2019-01-21 15:55 | NUR ---
PATIENT SITTING IN BED. NO DISTRESS AT THIS TIME
[2019-01-21 16:00] VITALS: BP 119/55
--- NOTE | 2019-01-21 17:24 | NUR ---
ADMINISTERED MEDS. PATIENT TOLERATED WELL. DR CORNELL SAID IT IS OK TO HOLD B/P MED AT THIS TIME. WILL CONTINUE TO MONITOR
--- NOTE | 2019-01-21 19:08 | NUR ---
GAVE BEDSIDE REPORT TO PHYSICAL THERAPIST CLINIC DIRECTOR NURSE. PATIENT ENDORSED IN STABLE CONDITION
--- NOTE | 2019-01-21 19:08 | NUR ---
PTT DONE, CURRENTLY PENDING, ENDORSED TO TRAIN MASTER NURSE
--- NOTE | 2019-01-21 19:10 | NUR ---
RECEIVED BEDSIDE REPORT FROM AM SHIFT RN ILENE, FOR PT'S CONTINUITY OF CARE. PT IS AAOX4, IS ON ROOM AIR, HAS RIGHT NECK PERMACATH, LEFT IJ CÉSAR CATH, RIGHT WRIST/HAND 20G INFUSING WITH HEPARIN AT 10ML/HR, RIGHT FOREARM 20G INFUSING WITH NS AT 10ML/HR, PT DENIES ANY PAIN AT THIS TIME. SAFETY MEASURES IN PLACE, FALL PRECAUTION IN PLACE, CALL LIGHT IS WITHIN REACH. WILL MONITOR PT THROUGHOUT SHIFT.
[2019-01-21 20:00] VITALS: BP 134/70
--- NOTE | 2019-01-21 21:48 | NUR ---
VS CHECKED AND CHARTED. ADMINISTERED SCHEDULED MEDICATIONS ORDERED. PT TOLERATED THEM WELL. PT DENIES PAIN AT THIS TIME. WILL CONTINUE TO MONITOR PT.
[2019-01-22] VITALS: BP 142/76
--- NOTE | 2019-01-22 | NUR ---
VS CHECKED AND CHARTED. PT ASLEEP WITH NO SIGNS OF DISTRESS. WILL CONTINUE TO MONITOR PT.
[2019-01-22] MEDS: hePARIN / DEXT 5% PREMIX 250 ML IV SCH (02:55)
--- NOTE | 2019-01-22 02:55 | NUR ---
APTT RESULT 33.9. ADMINISTERED IV PUSH BOLUS HEPARIN PER PROTOCOL, ORDERED, AND INCREASED HEPARIN DRIP PER PROTOCOL ORDERED. PT TOLERATED THEM WELL. DICE MANAGER AWARE. WILL CONTINUE TO MONITOR PT.
[2019-01-22 04:00] VITALS: BP 141/72
--- NOTE | 2019-01-22 04:15 | NUR ---
VS CHECKED AND CHARTED. PT ASLEEP, WOKE UP AND DENIES ANY PAIN AT THIS TIME. WILL CONTINUE TO MONITOR PT.
[2019-01-22] MEDS: BLOOD GLUCOSE MONITORING 1 DEV DEV FS SCH ×4 (06:34→20:13)
--- NOTE | 2019-01-22 06:35 | NUR ---
BLOOD GLUCOSE CHECKED AND CHARTED. PT ASLEEP, WOKE UP WITH NO C/O PAIN. WILL ENDORSE TO AM SHIFT RN FOR PT'S CONTINUITY OF CARE.
[2019-01-22 07:38] LABS: BASOPHILS % (AUTO) 0.3 % (0.0-2.0); EOSINOPHILS # (AUTO) 0.3 K/uL (0-0.4); EOSINOPHILS % (AUTO) 3.3 % (0.0-4.0); HEMATOCRIT 34.3 % (36-48); HEMOGLOBIN 11.3 g/dL (12.0-16.0); LYMPHOCYTES % (AUTO) 21.9 % (20.5-51.1); MEAN CORPUSCULAR HEMOGLOBIN 33 pg (27-31); MEAN CORPUSCULAR HGB CONC 33 g/dL (33-37); MEAN CORPUSCULAR VOLUME 98.6 fL (80-94); MONOCYTES # (AUTO) 1.3 K/uL (0.8-1.0); MONOCYTES % (AUTO) 14.5 % (1.7-9.3); NEUTROPHILS # (AUTO) 5.4 K/uL (1.8-7.7); PLATELET COUNT (AUTO) 236 K/uL (140-450); RED BLOOD CELL COUNT(AUTO) 3.48 MIL/uL (4.20-5.40); RED CELL DISTRIBUTION WIDTH 14.3 % (11.6-13.7)
[2019-01-22 07:49] LABS: MAGNESIUM 1.7 mg/dL (1.8-2.4); PHOSPHORUS 5.8 mg/dL (2.5-4.9)
[2019-01-22] MEDS: ALBUTEROL SULFATE/IPRATROPIU 3 ML SOL IH SCH ×3 (07:56→19:00)
[2019-01-22 07:57] LABS: ANION GAP 14.4 (8-16); POTASSIUM 4.4 mmol/L (3.5-5.1)
--- NOTE | 2019-01-22 07:59 | NUR ---
RECEIVED BEDSIDE REPORT FROM PM RN PT ASLEEP IN BED PT HAS NOTABLE CHEST RISE AND FALL. PT APPEARS STABLE AND IN NO APPARENT DISTRESS. ALL SAFETY MEASURES ARE IN PLACE PT HAS R NECK PERMACATH L IJ QUETIN CATH. R WRIST 20G IV INFUSING HEPARIN PER PROTOCOL. NEXT PTT DRAW IS ORDERED FOR 0855. WILL CONTINUE TO MONITOR
[2019-01-22 08:01] LABS: CREATININE 6.5 mg/dL (0.6-1.3)
[2019-01-22 08:25] VITALS: BP 171/76
[2019-01-22] MEDS: hydrALAZINE 25 MG TAB PO SCH ×3 (08:56→17:32)
[2019-01-22] MEDS: SEVELAMER CARBONATE 800 MG TAB PO SCH ×3 (08:56→17:32)
[2019-01-22] MEDS: CALCIUM ACETATE 667 MG TAB PO SCH ×3 (08:57→17:32)
[2019-01-22] MEDS: LOSARTAN 50 MG TAB PO SCH ×2 (08:57→20:08)
[2019-01-22] MEDS: FERROUS SULFATE 325 MG TABEC PO SCH ×3 (08:57→17:32)
[2019-01-22] MEDS: LACTOBACILLUS RHAMNOSUS GG 1 EACH CAP PO SCH (08:57)
[2019-01-22] MEDS: PIPERACILLIN/TAZOBACTAM 2.25 GM in DEXTROSE 5% 50 ML IV SCH ×2 (08:58→20:13)
--- NOTE | 2019-01-22 09:36 | NUR ---
FREQUENT ROUNDING ON PT PT APPEARS STABLE AND IN NO APPARENT DISTRESS. ALL SAFETY MEASURES ARE IN PLACE
[2019-01-22 12:05] VITALS: BP 162/76
--- NOTE | 2019-01-22 12:05 | NUR ---
DR. ATWOOD AT BEDSIDE. SPOKE ABOUT PT PLAN OF CARE. ORDERED DIALYSIS FOR TODAY. INFORMED DIALYSIS NURSE. WILL HOLD AFTERNOON BLOOD PRESSURE MEDICATIONS
--- NOTE | 2019-01-22 15:46 | NUR ---
FREQUENT ROUNDING ON PT PT APPEARS STABLE AND IN NO APPARENT DISTRESS. ALL SAFETY MEASURES ARE IN PLACE
[2019-01-22 16:34] VITALS: BP 157/79
--- NOTE | 2019-01-22 17:15 | NUR ---
[facility] NURSE SPOKE WITH DR. ATWOOD TO CLARIFY THE ORDERS. DIALYSIS WILL BE DONE TOMORROW 01/23/19 UPDATED THE ORDER
--- NOTE | 2019-01-22 18:40 | NUR ---
* ST NOTE * Pt seen sitting up at EOB during dinner meal. Pt alert, cooperative and engaged throughout session, reporting no c/o pain at this time. Bedside dysphagia and oral mechanism exams completed. See evaluation report for further details. Pt tolerating 5/5 alternating PO trials of regular solid chicken, lettuce and cucumber, as well as 3/3 alternating PO trials of thin liquid juice via a cup, all w/o s/s of aspiration or choking. Pt education completed re: aspiration precautions and safe swallow compensatory strategies pt could utilize to aid w/swallow function, w/pt verbalizing understanding and demonstrating 100% follow through requiring occasional visual and tactile cues from the clinician. Pt and nsg education thus completed re: recommendations for pt's PO diet consistency to remain at regular solids w/thin liquids, w/strict aspiration precautions in place 2/2 to pt's dx of aspiration PNA, w/pt and nsg verbalizing understanding and agreement w/clinician's recommendations. No further ST follow up recommended at this time. Pt and caregiver/Nsg Brissa education completed re: results of evaluation; benefits of abiding by aspiration precautions; and prognosis for improvement; with pt and caregiver/Nsg Brissa verbalizing understanding and agreement w/clinician's recommendations. Recommend: - CONTINUE PO DIET CONSISTENCY OF REGULAR SOLIDS W/THIN LIQUIDS for all meals - MAINTAIN STRICT ASPIRATION PRECAUTIONS DURING PT'S PO INTAKE - Pt can feed self - CUE/REMIND PT PRIOR TO PO INTAKE TO SIT UP AT 80-90 DEGREE ANGLE DURING PO INTAKE; EAT/DRINK SLOWLY; TAKE SMALL BITES/SIPS; AND TO ALTERNATE BTWN SOLIDS & LIQUIDS No further ST follow up recommended at this time. NOMS Level 2 Time In/Out 17:45 - 18:15
--- NOTE | 2019-01-22 19:36 | NUR ---
ENDORSED PT TO PM RN PT APPEARS STABLE AND IN NO APPARENT DISTRESS. ALL SAFETY MEASURES ARE IN PLACE
--- NOTE | 2019-01-22 19:37 | NUR ---
REPORT RECEIVED FROM AM NURSE AT BEDSIDE. PT IN STABLE CONDITION. AAOX2-3. INTRODUCED SELF TO PT. BOARD UPDATED. NO COMPLAINTS OF PAIN. NO SOB. AFEBRILE. PT IS ON BED REST AND IS A FALL RISK. PT HAS A L NECK PERMACATH AND R IJ CÉSAR CATH. PT IV SITE R WRIST AND R FA 20G BOTH SL PATENT AND INTACT. SKIN WARM, DRY, AND INTACT WITH NO OPEN WOUNDS. BED LOCKED IN LOW POSITION. CALL CHANEL WITHIN REACH. SAFETY PRECAUTION IN PLACE. ALL NEEDS MET AT THIS TIME.
[2019-01-22 20:00] VITALS: BP 183/76
--- NOTE | 2019-01-22 20:13 | NUR ---
COZAAR GIVEN PO. ZOSYN HUNG AND RUNNING. HEPARIN GIVEN SUBQ. PT TOLERATED WELL. BS 97. NO INSULIN COVERAGE NEEDED.
--- NOTE | 2019-01-22 21:30 | NUR ---
PT SLEEPING COMFORTABLY BUT AROUSABLE. NO S/S OF DISTRESS NOTED. WILL CONTINUE TO MONITOR.
--- NOTE | 2019-01-22 23:00 | NUR ---
PT SLEEPING COMFORTABLY BUT AROUSABLE. NO S/S OF DISTRESS NOTED. TELE MONITORING. WILL CONTINUE TO MONITOR.
--- NOTE | 2019-01-22 23:48 | NUR ---
CLONIDINE GIVEN FOR BP OF 176/65 HR 69. PT TOLERATED WELL.
[2019-01-23] VITALS: BP 176/65
--- NOTE | 2019-01-23 01:45 | NUR ---
PT SLEEPING COMFORTABLY BUT AROUSABLE. NO S/S OF DISTRESS NOTED. WILL CONTINUE TO MONITOR.
[2019-01-23 04:00] VITALS: BP 138/62
--- NOTE | 2019-01-23 04:30 | NUR ---
PT SLEEPING COMFORTABLY BUT AROUSABLE. VS STABLE. NO S/S OF DISTRESS NOTED. WILL CONTINUE TO MONITOR.
[2019-01-23] MEDS: BLOOD GLUCOSE MONITORING 1 DEV DEV FS SCH ×2 (06:09→12:08)
--- NOTE | 2019-01-23 06:09 | NUR ---
BS 88. NO INSULIN COVERAGE NEEDED.
--- NOTE | 2019-01-23 06:40 | NUR ---
PT SLEEPING COMFORTABLY BUT AROUSABLE. NO TELE MONITORING. NO S/S OF DISTRESS NOTED. PT IN STABLE CONDITION.
[2019-01-23] MEDS: ALBUTEROL SULFATE/IPRATROPIU 3 ML SOL IH SCH ×2 (06:56→13:20)
[2019-01-23 07:04] LABS: BASOPHILS % (AUTO) 0.5 % (0.0-2.0); EOSINOPHILS # (AUTO) 0.3 K/uL (0-0.4); EOSINOPHILS % (AUTO) 4.6 % (0.0-4.0); HEMATOCRIT 31.2 % (36-48); HEMOGLOBIN 10.4 g/dL (12.0-16.0); LYMPHOCYTES # (AUTO) 1.7 K/uL (2.5-16.5); LYMPHOCYTES % (AUTO) 26.4 % (20.5-51.1); MEAN CORPUSCULAR HEMOGLOBIN 33 pg (27-31); MEAN CORPUSCULAR HGB CONC 34 g/dL (33-37); MEAN CORPUSCULAR VOLUME 97.6 fL (80-94); MONOCYTES # (AUTO) 0.9 K/uL (0.8-1.0); MONOCYTES % (AUTO) 13.2 % (1.7-9.3); NEUTROPHILS # (AUTO) 3.6 K/uL (1.8-7.7); NEUTROPHILS % (AUTO) 55.3 % (42.2-75.2); PLATELET COUNT (AUTO) 213 K/uL (140-450); RED BLOOD CELL COUNT(AUTO) 3.19 MIL/uL (4.20-5.40); RED CELL DISTRIBUTION WIDTH 14.1 % (11.6-13.7); WHITE BLOOD COUNT (AUTO) 6.4 K/uL (4.8-10.8)
[2019-01-23 07:32] LABS: ANION GAP 16.7 (8-16); CARBON DIOXIDE 25.7 mmol/L (21-32); POTASSIUM 4.4 mmol/L (3.5-5.1)
[2019-01-23 07:34] LABS: MAGNESIUM 1.9 mg/dL (1.8-2.4); PHOSPHORUS 7.9 mg/dL (2.5-4.9)
--- NOTE | 2019-01-23 07:49 | NUR ---
RECEIVED BEDSIDE REPORT FROM PM RN PT ASLEEP IN BED NOTABLE CHEST RISE AND FALL. ALL SAFETY MEASURES ARE IN PLACE WILL CONTINUE TO MONITOR
[2019-01-23 08:00] LABS: CREATININE 8.4 mg/dL (0.6-1.3)
[2019-01-23] MEDS: SEVELAMER CARBONATE 800 MG TAB PO SCH ×2 (08:00→12:26)
--- NOTE | 2019-01-23 08:15 | NUR ---
DIALYSIS NURSE AT BEDSIDE.
[2019-01-23 08:25] VITALS: BP 131/63
[2019-01-23] MEDS: CALCIUM ACETATE 667 MG TAB PO SCH ×2 (08:39→12:26)
[2019-01-23] MEDS: FERROUS SULFATE 325 MG TABEC PO SCH ×2 (08:39→12:26)
[2019-01-23] MEDS: LACTOBACILLUS RHAMNOSUS GG 1 EACH CAP PO SCH (08:41)
[2019-01-23] MEDS: hydrALAZINE 25 MG TAB PO SCH ×2 (08:41→12:26)
[2019-01-23] MEDS: LOSARTAN 50 MG TAB PO SCH (08:41)
--- NOTE | 2019-01-23 09:00 | NUR ---
HELD 0900 SHANNAN. PT RECEIVING DIALYSIS
[2019-01-23] MEDS ORDERED: PIPERACILLIN/TAZOBACTAM 2.25 GM in DEXTROSE 5% 50 ML IV SCH (11:00)
[2019-01-23] MEDS ORDERED: cloNIDine 0.1 MG TAB PO PRN (11:14)
[2019-01-23] MEDS ORDERED: ASCO1CAP75 PO (11:29)
[2019-01-23] MEDS ORDERED: AMOX-999 PO (11:29)
--- NOTE | 2019-01-23 11:34 | NUR ---
FREQUENT ROUNDING ON PT PT APPEARS STABLE AND IN NO APPARENT DISTRESS. ALL SAFETY MEASURES ARE IN PLACE AND WILL CONTINUE TO MONITOR.
[2019-01-23 12:05] VITALS: BP 131/62
--- NOTE | 2019-01-23 12:16 | NUR ---
REFERRAL FOR HOME HEALTH FAXED TO [facility] AT [phone]. PER PAMELLA (INTAKE) THEY RECEIVED THE REFERRAL AND IS ABLE TO ACCEPT THE PATIENT. PER PAMELLA THEY WILL HAVE THE NURSE COME IN TO SEE THE PATIENT TOMORROW. SR. CORNELL AND CHARGE NURSE MADE AWARE.
--- NOTE | 2019-01-23 13:16 | NUR ---
FREQUENT ROUNDING ON PT PT APPEARS STABLE AND IN NO APPARENT DISTRESS. ALL SAFETY MEASURES ARE IN PLACE WILL CONTINUE TO MONITOR
--- NOTE | 2019-01-23 13:20 | NUR ---
Show Horse Driver Note: I met with patient at bedside. Patient speaks Armenian. Per patient, she is in agreement with [facility] . I confirmed patient's home address and phone number listed on face sheet, [facility] [place] [address] .
[2019-01-23 13:37] LABS: ALBUMIN 3.1 g/dL (3.4-5.0); PHOSPHORUS 4.8 mg/dL (2.5-4.9); TOTAL BILIRUBIN 0.8 mg/dL (0.0-1.0)
[2019-01-23 13:42] LABS: CREATININE 5.4 mg/dL (0.6-1.3)
[2019-01-23 13:45] VITALS: BP 131/62
--- NOTE | 2019-01-23 14:55 | NUR ---
REVIEWED DISCHARGE INSTRUCTIONS WITH PATIENT AND MALAYSIAN SPEAKING RN JANES. ANSWERED ALL QUESTIONS, PROVIDED PT WITH PRESCRIPTION AND FOLLOW UP APPOINTMENT FOR JANUARY 27. REMOVED IVS AND ID BAND, PT LEFT THE UNIT VIA WHEELCHAIR ACCOMPANIED BY PT FAMILY MEMBER. ALL SAFETY MEASURES ARE IN PLACE PT STABLE AND IN NO APPARENT DISTRESS. INSTRUCTED PT ON ALWAYS RETURNING TO THE EMERGENCY ROOM IN CASE OF MEDICAL EMERGENCY
== END 2019-01-23 14:40 | disposition home or self-care (01) | DRG 280 ==
LOC: MED 15:00 → MTU 17:11
PROVIDERS: ADMIT General Practice; ATTEND General Practice
PROC: 5A1D70Z Performance of Urinary Filtration, Intermittent, Less than 6 Hours Per Day (ICD-10-PCS; principal; 2019-01-18)
PROC: 02HV33Z Insertion of Infusion Device into Superior Vena Cava, Percutaneous Approach (ICD-10-PCS; 2019-01-18)
PROC: B548ZZA Ultrasonography of Superior Vena Cava, Guidance (ICD-10-PCS; 2019-01-18)
PROC: 5A1D70Z Performance of Urinary Filtration, Intermittent, Less than 6 Hours Per Day (ICD-10-PCS; 2019-01-19)
PROC: 0JH63XZ Insertion of Tunneled Vascular Access Device into Chest Subcutaneous Tissue and Fascia, Percutaneous Approach (ICD-10-PCS; 2019-01-20)
PROC: 3E03317 Introduction of Other Thrombolytic into Peripheral Vein, Percutaneous Approach (ICD-10-PCS; 2019-01-20)
PROC: 5A1D70Z Performance of Urinary Filtration, Intermittent, Less than 6 Hours Per Day (ICD-10-PCS; 2019-01-21)
DX: T82.41XA Breakdown (mechanical) of vascular dialysis catheter, initial encounter (principal); J69.0 Pneumonitis due to inhalation of food and vomit; I21.A1 Myocardial infarction type 2; N17.0 Acute kidney failure with tubular necrosis; G93.41 Metabolic encephalopathy; N18.6 End stage renal disease; I50.43 Acute on chronic combined systolic (congestive) and diastolic (congestive) heart failure; I13.2 Hypertensive heart and chronic kidney disease with heart failure and with stage 5 chronic kidney disease, or end stage renal disease; E11.22 Type 2 diabetes mellitus with diabetic chronic kidney disease; E87.5 Hyperkalemia; I16.0 Hypertensive urgency; E83.39 Other disorders of phosphorus metabolism; E83.41 Hypermagnesemia; D64.9 Anemia, unspecified; E83.42 Hypomagnesemia; Y84.1 Kidney dialysis as the cause of abnormal reaction of the patient, or of later complication, without mention of misadventure at the time of the procedure; Z99.2 Dependence on renal dialysis; Y92.89 Other specified places as the place of occurrence of the external cause
CPT/HCPCS: 36415; 36600; 70450; 71045; 80048; 80053; 82140; 82150; 82550; 82728; 82803; 82948; 83036; 83540; 83605; 83690; 83735; 83880; 84100; 84436; 84439; 84443; 84484; 85025; 85610; 85730; 87040; 87081; 90935; 92610; 93005; 94640; 96372; 96374; 96375; 97110; 97116; 97530; 99285; J0360; J1642; J1644; J1815; J2543; J2997; J7030; J7060; J7613; J7620; Q0092

== ENCOUNTER 2019-04-15 16:26 | Inpatient (IN) | payer OTHER ==
[~2019-04-15] VITALS: Ht 152.4 cm; Wt 64.0 kg
[~2019-04-15 16:26] MED LIST changes: -AMLODIPINE BESYLATE 10MG TABLE; +AMOX-999 PO; +ASCO1CAP75 PO; -CLONIDINE; +HYDR100T79 PO; -LEVO25SO IV; +LOSA50TA57 PO; +MELA5TAB6 PO; -METR500S14 IV; +PHO667 PO; +SEVE800T6 PO
[2019-04-15 16:44] VITALS: BP 232/113
--- NOTE | 2019-04-15 16:48 | NUR ---
W/C ASSISTED TO BED 1
[2019-04-15] MEDS ORDERED: hydrALAZINE 20 MG/ML VIAL IVP ONE (16:50)
--- NOTE | 2019-04-15 17:24 | NUR ---
LAB AT BEDSIDE DRAWING ORDERED LAB WORK.
--- NOTE | 2019-04-15 17:27 | NUR ---
64 Y/O F C/O GENERALIZED WEAKNESS. PT IS ON DIALYSIS, HASN'T HAD TREATMENT X3 DAYS. PT IS AO4, MOANING, HAS PAIN 6/10 IN HER BACK. PT PERRLA, HAND INVESTMENT BANKING ANALYST EQUAL, FACIAL SYMMETRY. PT ON MONITOR, 02 2L NC. NKA
[2019-04-15] MEDS ORDERED: ENALAPRILAT 2.5 MG/2 ML VIAL IVP ONE (17:35)
[2019-04-15 17:49] LABS: BASOPHILS % (AUTO) 0.5 % (0.0-2.0); EOSINOPHILS # (AUTO) 0.1 K/uL (0-0.4); EOSINOPHILS % (AUTO) 0.9 % (0.0-4.0); HEMATOCRIT 35.1 % (36-48); HEMOGLOBIN 11.6 g/dL (12.0-16.0); LYMPHOCYTES # (AUTO) 0.9 K/uL (2.5-16.5); LYMPHOCYTES % (AUTO) 8.8 % (20.5-51.1); MEAN CORPUSCULAR HEMOGLOBIN 32 pg (27-31); MEAN CORPUSCULAR HGB CONC 33 g/dL (33-37); MEAN CORPUSCULAR VOLUME 98.2 fL (80-94); MONOCYTES # (AUTO) 0.8 K/uL (0.8-1.0); MONOCYTES % (AUTO) 7.5 % (1.7-9.3); NEUTROPHILS # (AUTO) 8.2 K/uL (1.8-7.7); NEUTROPHILS % (AUTO) 82.3 % (42.2-75.2); PLATELET COUNT (AUTO) 337 K/uL (140-450); RED BLOOD CELL COUNT(AUTO) 3.57 MIL/uL (4.20-5.40); RED CELL DISTRIBUTION WIDTH 15.5 % (11.6-13.7)
[2019-04-15 18:09] LABS: ALBUMIN 3.2 g/dL (3.4-5.0); ANION GAP 21.9 (8-16); POTASSIUM 5.9 mmol/L (3.5-5.1); TOTAL BILIRUBIN 0.8 mg/dL (0.0-1.0)
[2019-04-15] MEDS ORDERED: HYDROcodone/APAP 7.5/325 MG 1 TAB PO PRN (18:40)
[2019-04-15] MEDS ORDERED: ONDANSETRON 4 MG/2 ML VIAL IVP PRN (18:40)
[2019-04-15] MEDS ORDERED: ACETAMINOPHEN 325 MG TAB PO PRN (18:40)
--- NOTE | 2019-04-15 19:45 | NUR ---
PATIENT ALERT AND ORIENTED, BREATHING EVEN AND UNLABORED
[2019-04-15 20:02] LABS: PROTHROMBIN TIME 9.8 secs (10.8-13.4)
[2019-04-15 20:18] LABS: MAGNESIUM 2.6 mg/dL (1.8-2.4); THYROID STIMULATING HORMONE 2.48 uIU/mL (0.34-3.74)
[2019-04-15 20:39] LABS: PHOSPHORUS 10.4 mg/dL (2.5-4.9)
[2019-04-15 20:45] VITALS: BP 219/102
--- NOTE | 2019-04-15 20:45 | NUR ---
RECEIVED PT FROM ER NURSE, VIRGIE. PT CAME IN [facility] AND TRANSFERRED TO [facility] BED. MOHAWK SPEAKING ONLY. GOT INFORMATION USING COMMUTER PILOT, #[id number]. NO SOB NOTED, BREATHING EVEN AND UNLABORED WITH 3LPM O2 VIA NC. DX: RENAL FAILURE, HTN, HLD. IV SITE ON LAC 20G, PATENT, INTACT AND ASYMPTOMATIC. SKIN INTACT, WARM AND DRY TO TOUCH. MRSA SWAB DONE, VS CHECKED, BP 219/102. REPORTED TO RESIDENT DR. HDEZ IN LOW POSITION, CALL LIGHT WITHIN REACH.
--- NOTE | 2019-04-15 20:50 | NUR ---
Patient will be admitted to care of DR ALONSO. Admited to MED SURG TELE. Will go to room 114. Belongings list completed. Report to DAVONTE CASTILLO.
[2019-04-15] MEDS: NACL 0.9% 1,000 ML IV SCH (21:00)
[2019-04-15] MEDS: DOCUSATE SODIUM 100 MG GELCAP PO SCH (21:44)
--- NOTE | 2019-04-15 21:44 | NUR ---
GIVEN COLACE, HEPARIN MD ORDERED. PT TOLERATED WELL.
[2019-04-15] MEDS ORDERED: DEXTROSE 50% 50 ML SYR IVP PRN (22:55)
[2019-04-15] MEDS ORDERED: MELATONIN 3 MG TAB PO PRN (22:55)
[2019-04-15] MEDS ORDERED: INSULIN LISPRO SLIDING SCALE 100 UNITS/ML VIAL SUBQ PRN (22:55)
[2019-04-15] MEDS ORDERED: hydrALAZINE 25 MG TAB PO SCH (23:30)
[2019-04-16] VITALS: BP 195/93
--- NOTE | 2019-04-16 00:19 | NUR ---
GIVEN HYDRALAZINE MD ORDERED. PT TOLERATED WELL. WILL CONTINUE TO MONITOR.
--- NOTE | 2019-04-16 02:10 | NUR ---
BP CHECKED, WENT DOWN TO 155/62. WILL CONTINUE TO MONITOR.
[2019-04-16 04:00] VITALS: BP 181/71
--- NOTE | 2019-04-16 04:00 | NUR ---
VS CHECKED, 97.5, 98% 85, 0/10, 18, 181/71. REPORTED TO RESIDENT HE ORDERED TO GIVE 0900 SCHEDULE HYDRALAZINE NOW AND PT'S BP WILL BE DECREASED AFTER HD.
[2019-04-16] MEDS ORDERED: hydrALAZINE 25 MG TAB ONE (04:52)
--- NOTE | 2019-04-16 04:56 | NUR ---
GIVEN 0900 SCHEDULED HYDRALAZINE EARLY MD ORDERED. PT TOLERATED WELL.
[2019-04-16 06:53] LABS: BASOPHILS # (AUTO) 0.1 K/uL (0.00-0.22); BASOPHILS % (AUTO) 0.7 % (0.0-2.0); EOSINOPHILS # (AUTO) 0.1 K/uL (0-0.4); EOSINOPHILS % (AUTO) 1.2 % (0.0-4.0); HEMOGLOBIN 10.8 g/dL (12.0-16.0); LYMPHOCYTES # (AUTO) 1.4 K/uL (2.5-16.5); LYMPHOCYTES % (AUTO) 13.7 % (20.5-51.1); MEAN CORPUSCULAR HEMOGLOBIN 32 pg (27-31); MEAN CORPUSCULAR HGB CONC 33 g/dL (33-37); MEAN CORPUSCULAR VOLUME 98.9 fL (80-94); MONOCYTES # (AUTO) 1.1 K/uL (0.8-1.0); MONOCYTES % (AUTO) 10.7 % (1.7-9.3); NEUTROPHILS # (AUTO) 7.4 K/uL (1.8-7.7); NEUTROPHILS % (AUTO) 73.7 % (42.2-75.2); PLATELET COUNT (AUTO) 324 K/uL (140-450); RED BLOOD CELL COUNT(AUTO) 3.33 MIL/uL (4.20-5.40); RED CELL DISTRIBUTION WIDTH 15.2 % (11.6-13.7)
--- NOTE | 2019-04-16 07:03 | NUR ---
PT IN STABLE CONDITION, WILL ENDORSE TO DAY SHIFT NURSE FOR CONTINUOUS CARE.
[2019-04-16] MEDS ORDERED: BLOOD GLUCOSE MONITORING 1 DEV DEV FS SCH (07:30)
[2019-04-16 07:36] LABS: POTASSIUM 5.7 mmol/L (3.5-5.1)
[2019-04-16 07:37] LABS: ANION GAP 24.1 (8-16); CARBON DIOXIDE 22.6 mmol/L (21-32)
--- NOTE | 2019-04-16 07:38 | NUR ---
RECEIVED PT FROM FOOT DRILL OPERATOR NURSE. PT IS AAOX4 BARBADIAN SPEAKING ONLY. NO SOB NOTED, BREATHING EVEN AND UNLABORED WITH 2LPM O2 VIA NC. IV SITE ON LAC 20G, PATENT, INTACT AND ASYMPTOMATIC. SKIN INTACT, WARM AND DRY TO TOUCH. EXPLAINED POC TO PT AND PT VERBALIZED UNDERSTANDING. PT BED IN LOW POSITION, CALL LIGHT WITHIN REACH.
[2019-04-16 07:39] LABS: CREATININE 13.9 mg/dL (0.6-1.3)
[2019-04-16 08:00] VITALS: BP 155/59
--- NOTE | 2019-04-16 08:11 | NUR ---
PATIENT HAS BEEN SCREENED AND CATEGORIZED MODERATE NUTRITION RISK. PATIENT WILL BE SEEN WITHIN 3-5 DAYS OF ADMISSION. 04/18/19 04/20/[address]
[2019-04-16] MEDS: LOSARTAN 50 MG TAB PO SCH (09:00)
[2019-04-16] MEDS: hydrALAZINE 25 MG TAB PO SCH ×4 (09:00→20:24)
[2019-04-16] MEDS ORDERED: LACTOBACILLUS RHAMNOSUS GG 1 EACH CAP PO SCH (09:00)
[2019-04-16] MEDS ORDERED: hydrALAZINE 25 MG TAB PO SCH (09:00)
[2019-04-16] MEDS: FAMOTIDINE 20 MG TAB PO SCH (09:32)
[2019-04-16] MEDS: DOCUSATE SODIUM 100 MG GELCAP PO SCH ×2 (09:32→20:24)
--- NOTE | 2019-04-16 09:32 | NUR ---
ADMINISTERED PT MORNING MEDS. HELD BP MEDS DUE TO PT HAVING DIALYSIS. PT TOLERATED WELL. ALL NEEDS MET. WILL CONTINUE TO ROUND FREQUENTLY ON PT.
[2019-04-16 09:33] LABS: MAGNESIUM 2.5 mg/dL (1.8-2.4)
[2019-04-16 09:49] LABS: PHOSPHORUS 10.5 mg/dL (2.5-4.9)
[2019-04-16 10:18] LABS: CHOL/HDL RATIO 2.8 (1-4.5)
--- NOTE | 2019-04-16 11:54 | NUR ---
PT RESTING IN BED. ALL NEEDS MET. WILL CONTINUE TO ROUND FREQUENTLY ON PT. BED IN LOW POSITION, CALL LIGHT WITHIN REACH.
[2019-04-16 12:00] VITALS: BP 110/56
[2019-04-16] MEDS: SEVELAMER CARBONATE 800 MG TAB PO SCH ×2 (12:28→17:52)
--- NOTE | 2019-04-16 13:56 | NUR ---
PT ASLEEP IN BED. NO SIGNS OF DISTRESS OR PAIN NOTED. WILL CONTINUE TO ROUND FREQUENTLY ON PT. BED IN LOW POSITION, CALL LIGHT WITHIN REACH.
--- NOTE | 2019-04-16 15:35 | NUR ---
ALFIE assessment/discharge plan High Risk DC Screen Yes Name: Kathleen Jordan Relationship: sister Pre-Admission Living Arrangements: Lives with Other Other: roommate Prior ADL Independent Current Home Health Name/Tel: N/A Current DME/02 Name/Tel: N/A Current Hospice Name/Tel: N/A Current Dialysis Name/Tel: [facility] Tues/Thurs/Sat 2pm Healthcare Decision Maker: Patient Advance Directive No Information Taught: Advance Directive Community Resources Person Taught: Patient Teaching Tools: Community Resources Computer Generated Print Verbal Factors Affecting Learning: None Participation Level: Active Evaluation: Gestures Understanding Verbalizes Understanding Educator: ALFIE Doyle Discipline: Case Mgt/Social Svcs Tentative Discharge Plan Summary: Patient is a 64 year old female with past medical history ESRD, hypertension, type 2 diabetes, and anemia. I met with patient at bedside. Patient alert and oriented x4. Patient speaks Latvian. I introduced myself to patient and explained my role as a medical billing assistant. She verbalized understanding. Patient lives at home with her roommate and plans to return home upon discharge. Patient goes to [facility] located in [facility] for medical care. Patient is transported via medical van to and from [facility]. She is independent with ADLs at home. She does not use any DME. She walks to the grocery store. I provided patient with education on [employer], www.[employer].org for community resources. She stated she does not have any questions/concerns at this time. Preform Plate Maker and/or Survey Rodman will follow up as needed. Signature: ALFIE Doyle Date: Apr 16, 2019
--- NOTE | 2019-04-16 15:47 | NUR ---
PT RESTING IN BED. ALL NEEDS MET. WILL CONTINUE TO ROUND FREQUENTLY ON PT.
[2019-04-16 16:00] VITALS: BP 169/72
--- NOTE | 2019-04-16 17:48 | NUR ---
PT EATING DINNER IN BED. ALL NEEDS MET.
[2019-04-16] MEDS: NACL 0.9% 1,000 ML IV SCH (17:56)
--- NOTE | 2019-04-16 19:31 | NUR ---
ENDORSED PT TO HEELER MACHINE FOR CONTINUITY OF CARE. PT IN STABLE CONDITION AT THIS TIME.
--- NOTE | 2019-04-16 19:32 | NUR ---
RECEIVED BEDSIDE REPORT FROM DAY RN. PT IS AAOX4 BAHAMIAN SPEAKING ONLY. NO SOB NOTED, BREATHING EVEN AND UNLABORED WITH 2LPM O2 VIA NC. IV SITE ON LAC 20G, PATENT, INTACT AND ASYMPTOMATIC. AV SHUNT ON FABIANO, SIGN ON WALL. SKIN INTACT, WARM AND DRY TO TOUCH. EXPLAINED POC TO PT AND PT VERBALIZED UNDERSTANDING. PT BED IN LOW POSITION, CALL LIGHT WITHIN REACH.
[2019-04-16 20:00] VITALS: BP 144/63
--- NOTE | 2019-04-16 20:24 | NUR ---
VSS: 144/63 HR 80. ROBERTO MEDICATIONS GIVEN PER ORDERS. PT TOLERATED WELL. ALL SAFETY MEASURES ARE IN PLACE.
--- NOTE | 2019-04-16 22:30 | NUR ---
PATIENT IS LAYING COMFORTABLY IN BED. NO S/S OF DISTRESS. CALL LIGHT IS WITHIN REACH.
[2019-04-17] VITALS: BP 155/74
--- NOTE | 2019-04-17 00:20 | NUR ---
VITAL SIGNS ARE STABLE. PRN MELATONIN GIVEN FOR INSOMNIA. ALL NEEDS MET AT THIS TIME. WILL CONTINUE TO MONITOR
--- NOTE | 2019-04-17 02:27 | NUR ---
PATIENT IS LAYING COMFORTABLY IN BED. CHEST RISE AND FALL. ALL NEEDS MET AT THIS TIME. CALL LIGHT IS WITHIN REACH.
[2019-04-17 04:00] VITALS: BP 160/66
--- NOTE | 2019-04-17 04:00 | NUR ---
VITAL SIGNS ARE WITHIN NORMAL LIMITS. ALL SAFETY MEASURES ARE IN PLACE. WILL CONTINUE TO MONITOR
[2019-04-17] MEDS: hydrALAZINE 25 MG TAB PO SCH ×4 (06:41→21:00)
--- NOTE | 2019-04-17 06:41 | NUR ---
PER DR DICKERSON GIVE HYDRALAZINE EARLY BP:160/66 HR 69. ALL NEEDS MET AT THIS. CALL LIGHT IS WITHIN REACH. WILL ENDORSE TO DAY RN. PT IS IN STABLE CONDITION.
[2019-04-17 06:59] LABS: PHOSPHORUS 7.8 mg/dL (2.5-4.9)
[2019-04-17 07:02] LABS: BASOPHILS % (AUTO) 0.4 % (0.0-2.0); EOSINOPHILS # (AUTO) 0.2 K/uL (0-0.4); EOSINOPHILS % (AUTO) 2.2 % (0.0-4.0); HEMATOCRIT 32.3 % (36-48); HEMOGLOBIN 10.6 g/dL (12.0-16.0); LYMPHOCYTES # (AUTO) 1.7 K/uL (2.5-16.5); LYMPHOCYTES % (AUTO) 22.5 % (20.5-51.1); MEAN CORPUSCULAR HEMOGLOBIN 32 pg (27-31); MEAN CORPUSCULAR HGB CONC 33 g/dL (33-37); MEAN CORPUSCULAR VOLUME 98.3 fL (80-94); MONOCYTES # (AUTO) 0.9 K/uL (0.8-1.0); NEUTROPHILS # (AUTO) 4.8 K/uL (1.8-7.7); NEUTROPHILS % (AUTO) 62.9 % (42.2-75.2); PLATELET COUNT (AUTO) 301 K/uL (140-450); RED BLOOD CELL COUNT(AUTO) 3.29 MIL/uL (4.20-5.40); RED CELL DISTRIBUTION WIDTH 14.9 % (11.6-13.7); WHITE BLOOD COUNT (AUTO) 7.6 K/uL (4.8-10.8)
--- NOTE | 2019-04-17 07:15 | NUR ---
RECEIVED REPORT FROM DINING ROOM HOST NURSE FOR CONTINUITY OF CARE. PT IS SLEEPING. NO SIGNS OF DISTRESS. PT HAS IV ON LEFT AC G20. SIDERAILS UP, BED ON LOW POSITION AND CALL LIGHT WITHIN PT'S REACH. ON ROOM AIR. SKIN INTACT. ON RENAL DIET. WILL CONTINUE MONITORING
--- NOTE | 2019-04-17 07:58 | NUR ---
PT IS OFF THE UNIT NOW FOR A REPEAT CHEST X-RAY, PT IS STABLE AT [facility] TIME AND WAS SEEN AND VISITED BY DR. ALONSO IN ROOM WELL
[2019-04-17 08:00] VITALS: BP 127/73
--- NOTE | 2019-04-17 08:06 | NUR ---
PT IS BACK TO ROOM FROM CHEST X-RAY, PT IS STABLE AT TIS TIME AND WILL START EATING HER BREAKFAST AND DIALYSIS NURSE IS SETTING UP THE MACHINE FOR DIALYSIS OF PT.
--- NOTE | 2019-04-17 08:10 | NUR ---
DIALYSIS WAS STARTED NOW.
[2019-04-17 08:17] LABS: ANION GAP 15.1 (8-16); CARBON DIOXIDE 26.2 mmol/L (21-32); POTASSIUM 4.3 mmol/L (3.5-5.1)
[2019-04-17 08:23] LABS: CREATININE 9.5 mg/dL (0.6-1.3)
[2019-04-17] MEDS: LOSARTAN 50 MG TAB PO SCH (09:00)
--- NOTE | 2019-04-17 09:10 | NUR ---
FREQUENT ROUNDING DONE. PT IS ON DIALYSIS. SCHEDULED MEDS GIVEN. PO MEDS TOLERATED WELL. CALL LIGHT WITHIN PT'S REACH. WILL CONTINUE MONITORING.
[2019-04-17] MEDS: SEVELAMER CARBONATE 800 MG TAB PO SCH ×3 (09:23→16:36)
[2019-04-17] MEDS: DOCUSATE SODIUM 100 MG GELCAP PO SCH ×2 (09:23→21:00)
[2019-04-17] MEDS: FAMOTIDINE 20 MG TAB PO SCH (09:23)
--- NOTE | 2019-04-17 10:35 | NUR ---
FREQUENT ROUNDING DONE. PT IS AWAKE AND ALERT. HEMODIALYSIS IS DONE WITH 2L OUTPUT. PT APPEARS STABLE. NO SIGNS OF DISTRESS. CALL LIGHT WITHIN THE PT'S REACH. BED ON LOW, SIDERAILS UP. WILL CONTINUE MONITORING
[2019-04-17 12:00] VITALS: BP 143/71
--- NOTE | 2019-04-17 12:05 | NUR ---
SCHEDULED MEDS GIVEN. PO MEDS TOLERATED WELL. WILL CONTINUE MONITORING
--- NOTE | 2019-04-17 12:59 | NUR ---
DC PLANNIN YRS OLD FEMALE PATIENT WAS ADMITTED FROM HOME WITH A DX OF ESRD, HTN EMERGENCY AND HYPERKALEMIA. PT HAS A HX OF ESRD HEMODIALYSIS ON TTHS AND MISSED DIALYSIS . CONSULTED WITH DR MIRANDA HAD DIALYSIS TODAY . PT CURRENTLY GOES TO [facility] ON [address] DC PLAN TO GO HOME AND CONTINUE WITH THE SAME DIALYSIS CENTER. CM TO FOLLOW Addendum: 04/18/19 at 0902 by Pham Woods CM DC PLANNING: SEEN BY GROUND SYSTEMS ENGINEER ,ECHO SHOWED MODERATE AR EF 50-55%, BP CONTROLLED BY PB MEDS,DIALYSIS FOR FLUID REMOVAL , IMPROVEMENT ENGINEER SEEN PT PATIENT WAS DIALYZED AGAIN THIS MORNING ,STABLE CONDITION DC PLAN PER PRIMARY MD. CM TO FOLLOW
--- NOTE | 2019-04-17 13:50 | NUR ---
FREQUENT ROUNDING DONE. PT IS AWAKE AND ALERT, NO SIGNS OF DISTRESS. CALL LIGHT WITHIN PT'S REACH, BED ON LOW, SIDERAILS UP. WILL CONTINUE MONITORING
[2019-04-17 16:00] VITALS: BP 136/79
--- NOTE | 2019-04-17 16:05 | NUR ---
FREQUENT ROUNDING DONE. PT APPEARS STABLE. SCHEDULED MEDS GIVEN. PO MEDS TOLERATED WELL. WILL CONTINUE MONITORING
[2019-04-17] MEDS: NACL 0.9% 1,000 ML IV SCH (18:39)
--- NOTE | 2019-04-17 19:06 | NUR ---
REPORT GIVEN TO HANDLE FINISHER FOR CONTINUITY OF CARE. PT APPEARS STABLE, NO SIGNS OF DISTRESS. CALL LIGHT WITHIN PT'S REACH, BED ON LOW, SIDERAILS UP.
--- NOTE | 2019-04-17 19:07 | NUR ---
RECEIVED BEDSIDE REPORT FROM DAY RN. PT IS AAOX4 SAMOAN SPEAKING ONLY. NO SOB NOTED, BREATHING EVEN AND UNLABORED ON ROOM AIR. IV SITE ON LAC 20G, PATENT, INTACT AND ASYMPTOMATIC. TUNNELED CATH ON R UPPER CHEST, SIGN ON WALL. HD TODAY 2L OUTPUT PER RN. SKIN INTACT, WARM AND DRY TO TOUCH. EXPLAINED POC TO PT AND PT VERBALIZED UNDERSTANDING. PT BED IN LOW POSITION, CALL LIGHT WITHIN REACH.
[2019-04-17 20:00] VITALS: BP 159/65
--- NOTE | 2019-04-17 21:04 | NUR ---
VSS B/P 159/65 HR 74 97% 98.0 RR 18 DENIES PAIN. ROBERTO MEDICATIONS GIVEN. PT TOLERATED WELL.
--- NOTE | 2019-04-17 22:30 | NUR ---
PATIENT IS LAYING COMFORTABLY IN BED WATCHING TV. NO S/S OF DISTRESS. SAFETY MEASURES ARE IN PLACE.
[2019-04-18] VITALS: BP 155/74
--- NOTE | 2019-04-18 | NUR ---
VITAL SIGNS ARE WITHIN NORMAL LIMITS. PT IS RESTING COMFORTABLY IN BED. NO S/S OF DISTRESS.
--- NOTE | 2019-04-18 01:46 | NUR ---
PT IS SLEEPING COMFORTABLY IN BED WITH EYES CLOSED. NO S/S OF DISTRESS. CALL LIGHT IS WITHIN REACH.
[2019-04-18 04:00] VITALS: BP 170/77
[2019-04-18] MEDS: hydrALAZINE 25 MG TAB PO SCH ×2 (05:15→13:04)
--- NOTE | 2019-04-18 05:15 | NUR ---
B/P HIGH 170/[address] RADHA WOOD TO GIVE APRESOLINE 5O MG EARLY. PT TOLERATED WELL. WILL CONTINUE TO MONITOR.
[2019-04-18 06:00] VITALS: BP 150/61
--- NOTE | 2019-04-18 06:15 | NUR ---
RECHECK B/P 150/61 HR 78. ALL NEEDS MET AT THIS TIME. PT IS STABLE. WILL ENDORSE TO DAY RN.
[2019-04-18 06:56] LABS: BASOPHILS % (AUTO) 0.8 % (0.0-2.0); EOSINOPHILS # (AUTO) 0.2 K/uL (0-0.4); EOSINOPHILS % (AUTO) 3.6 % (0.0-4.0); HEMATOCRIT 33.6 % (36-48); HEMOGLOBIN 11.4 g/dL (12.0-16.0); LYMPHOCYTES # (AUTO) 1.3 K/uL (2.5-16.5); LYMPHOCYTES % (AUTO) 21.9 % (20.5-51.1); MEAN CORPUSCULAR HEMOGLOBIN 33 pg (27-31); MEAN CORPUSCULAR HGB CONC 34 g/dL (33-37); MEAN CORPUSCULAR VOLUME 96.8 fL (80-94); MONOCYTES # (AUTO) 0.9 K/uL (0.8-1.0); MONOCYTES % (AUTO) 15.2 % (1.7-9.3); NEUTROPHILS # (AUTO) 3.6 K/uL (1.8-7.7); NEUTROPHILS % (AUTO) 58.5 % (42.2-75.2); PLATELET COUNT (AUTO) 297 K/uL (140-450); RED BLOOD CELL COUNT(AUTO) 3.47 MIL/uL (4.20-5.40); RED CELL DISTRIBUTION WIDTH 14.6 % (11.6-13.7); WHITE BLOOD COUNT (AUTO) 6.1 K/uL (4.8-10.8)
--- NOTE | 2019-04-18 07:10 | NUR ---
RECEIVED REPORT FROM TOP IRONER NURSE FOR CONTINUITY OF CARE. PT IS ALERT AND ORIENTED. PT APPEARS STABLE, NO SIGNS OF DISTRESS. CALL LIGHT WITHIN PT'S REACH, BED ON LOW, SIDERAILS UP. WILL CONTINUE MONITORING
[2019-04-18 07:25] LABS: ANION GAP 15.1 (8-16); CARBON DIOXIDE 28.2 mmol/L (21-32); POTASSIUM 4.3 mmol/L (3.5-5.1)
[2019-04-18 07:28] LABS: MAGNESIUM 1.9 mg/dL (1.8-2.4); PHOSPHORUS 5.6 mg/dL (2.5-4.9)
[2019-04-18 07:43] LABS: CREATININE 7.2 mg/dL (0.6-1.3)
--- NOTE | 2019-04-18 08:45 | NUR ---
SCHEDULED MEDS GIVEN. WITHELD HYDRALAZINE 25MG 2 TABS WITH PT'S BP OF 119/67, P 94, O2 SAT 99%. BECAUSE TRANSMISSION TESTER NURSE GAVE HYDRALAZINE AT 5:15AM WITH BP OF 170/77. PO MEDS TOLERATED WELL. WILL CONTINUE TO MONITOR.
[2019-04-18] MEDS: LOSARTAN 50 MG TAB PO SCH (08:46)
[2019-04-18] MEDS: DOCUSATE SODIUM 100 MG GELCAP PO SCH (08:46)
[2019-04-18] MEDS: SEVELAMER CARBONATE 800 MG TAB PO SCH ×2 (08:47→13:05)
[2019-04-18] MEDS: FAMOTIDINE 20 MG TAB PO SCH (08:47)
[2019-04-18] MEDS ORDERED: SEVE800T6 PO (10:34)
[2019-04-18] MEDS ORDERED: HYDR-734 PO (10:34)
[2019-04-18 11:18] VITALS: BP 119/67
--- NOTE | 2019-04-18 12:35 | NUR ---
DISCHARGED TEACHINGS AND INSTRUCTIONS WERE GIVEN TO PT INTERPRETED BY A PROCUREMENT COST COORDINATOR, VENECIA, #[id number], AND PT VERBALIZED UNDERSTANDING, IV LINE, ARM BANDS AND HEART MONITOR WERE REMOVED AND PT WAS INSTRUCTED THAT FRIEND WILL BE PICKING HER UP AND BRING HER HOME, PT SAID THAT SHE WILL WAIT IN THE ROOM.
--- NOTE | 2019-04-18 12:45 | NUR ---
DISCHARGED PT TO HOME WITH FRIEND, IV LINE AND ARM BAND REMOVED, PT DENIES PAIN AND NO SOB NOTED, PT IS STABLE AT THIS TIME.
--- NOTE | 2019-04-18 13:05 | NUR ---
PT WAS GIVEN ORAL MEDICATIONS NOW WHILE WAITING FOR HER FRIEND TO PICK HER UP. WILL MONITOR PT.
== END 2019-04-18 12:40 | disposition home or self-care (01) | DRG 682 ==
LOC: MED 16:26 → MTU 18:39
PROVIDERS: ADMIT General Practice; ATTEND General Practice
PROC: 5A1D70Z Performance of Urinary Filtration, Intermittent, Less than 6 Hours Per Day (ICD-10-PCS; principal; 2019-04-15)
PROC: 5A1D70Z Performance of Urinary Filtration, Intermittent, Less than 6 Hours Per Day (ICD-10-PCS; 2019-04-16)
DX: I12.0 Hypertensive chronic kidney disease with stage 5 chronic kidney disease or end stage renal disease (principal); I50.43 Acute on chronic combined systolic (congestive) and diastolic (congestive) heart failure; N18.6 End stage renal disease; I21.A1 Myocardial infarction type 2; N17.0 Acute kidney failure with tubular necrosis; J96.00 Acute respiratory failure, unspecified whether with hypoxia or hypercapnia; I16.1 Hypertensive emergency; J98.11 Atelectasis; E87.5 Hyperkalemia; J45.909 Unspecified asthma, uncomplicated; E11.22 Type 2 diabetes mellitus with diabetic chronic kidney disease; D63.1 Anemia in chronic kidney disease; G47.00 Insomnia, unspecified; E83.39 Other disorders of phosphorus metabolism; E83.41 Hypermagnesemia; E87.8 Other disorders of electrolyte and fluid balance, not elsewhere classified; I35.1 Nonrheumatic aortic (valve) insufficiency; Z91.15 Patient's noncompliance with renal dialysis; Z99.2 Dependence on renal dialysis
CPT/HCPCS: 36415; 71045; 71046; 80048; 80053; 82140; 83036; 83605; 83690; 83735; 83880; 84100; 84443; 84484; 85025; 85610; 85730; 87081; 90935; 93005; 93308; 96374; 96375; 99291; J0360; J1644; J3490; J7030; Q0092

== ENCOUNTER 2019-06-25 12:43 | Inpatient (IN) | payer OTHER ==
--- NOTE | 2019-06-09 22:00 | NUR ---
PATIENT IS AWAKE WATCHING TV. DENIES PAIN. NO SOB NOTED.
[~2019-06-25] VITALS: Ht 152.4 cm; Wt 64.0 kg
--- NOTE | 2019-06-25 07:00 | NUR ---
ENDORSED PT. TO CAPTION WRITER NURSE, ISAURA, FOR CONTINUITY OF CARE.
[~2019-06-25 12:43] MED LIST changes: -AMOX-999 PO; -ASCO1CAP75 PO; +HYDR-734 PO; -HYDR100T79 PO
[2019-06-25 12:55] VITALS: BP 248/136
--- NOTE | 2019-06-25 13:32 | NUR ---
RECEVIED A 64/F FROM TRIAGE WITH BODY ACHES. PT REPORTS THAT SHE HAS FELT UNWELL FOR THE PAST WEEK. PT REPORTS MISSING DIALYSIS ON SUNDAY -- SUBCLAVIAN PORT NOTED TO RT CLAVICULAR REGION. PT IS CURRENTLY HYPERTENSIVE 240S SYSTOLIC. PT APPEARS TACYNPIC -- CLEAR LUNG SOUNDS BIALTERALLY. [place] [facility] [place] CUMMINGS AT BEDSIDE.
[2019-06-25 14:20] LABS: BASOPHILS # (AUTO) 0.1 K/uL (0.00-0.22); EOSINOPHILS % (AUTO) 0.5 % (0.0-4.0); HEMATOCRIT 37.1 % (36-48); LYMPHOCYTES # (AUTO) 0.8 K/uL (2.5-16.5); LYMPHOCYTES % (AUTO) 9.7 % (20.5-51.1); MEAN CORPUSCULAR HEMOGLOBIN 31 pg (27-31); MEAN CORPUSCULAR HGB CONC 32 g/dL (33-37); MEAN CORPUSCULAR VOLUME 97.3 fL (80-94); MONOCYTES # (AUTO) 0.4 K/uL (0.8-1.0); MONOCYTES % (AUTO) 5.1 % (1.7-9.3); NEUTROPHILS # (AUTO) 7.3 K/uL (1.8-7.7); NEUTROPHILS % (AUTO) 83.7 % (42.2-75.2); PLATELET COUNT (AUTO) 233 K/uL (140-450); RED BLOOD CELL COUNT(AUTO) 3.82 MIL/uL (4.20-5.40); RED CELL DISTRIBUTION WIDTH 15.9 % (11.6-13.7); WHITE BLOOD COUNT (AUTO) 8.7 K/uL (4.8-10.8)
[2019-06-25 14:43] LABS: ALBUMIN 3.3 g/dL (3.4-5.0); ANION GAP 20.3 (8-16); CARBON DIOXIDE 24.8 mmol/L (21-32); PHOSPHORUS 8.9 mg/dL (2.5-4.9); POTASSIUM 5.1 mmol/L (3.5-5.1); TOTAL BILIRUBIN 0.9 mg/dL (0.0-1.0)
[2019-06-25 14:50] LABS: CREATININE 11.3 mg/dL (0.6-1.3)
[2019-06-25 14:58] LABS: PROTHROMBIN TIME 10.1 secs (10.8-13.4)
[2019-06-25] MEDS ORDERED: ENALAPRILAT 2.5 MG/2 ML VIAL IVP ONE (15:00)
[2019-06-25] MEDS ORDERED: NACL 0.9% 1,000 ML IV SCH (15:28)
[2019-06-25] MEDS ORDERED: MORPHINE SULFATE 2 MG/ML SYR IVP PRN (15:30)
[2019-06-25] MEDS ORDERED: ACETAMINOPHEN 325 MG TAB PO PRN (15:30)
[2019-06-25] MEDS ORDERED: ZOLPIDEM 5 MG TAB PO PRN (15:30)
[2019-06-25] MEDS ORDERED: LORazepam 2 MG/ML VIAL IM/IVP PRN (15:30)
[2019-06-25] MEDS ORDERED: HYDROcodone/APAP 5/325 MG 1 TAB TAB PO PRN (15:30)
[2019-06-25] MEDS ORDERED: ONDANSETRON 4 MG/2 ML VIAL IM/IVP PRN (15:30)
[2019-06-25] MEDS ORDERED: DOCUSATE SODIUM 100 MG GELCAP PO PRN (15:30)
[2019-06-25] MEDS ORDERED: NON-FORMULARY ITEM (Melatonin (Melatonin) 5 MG) PO PRN (15:40)
[2019-06-25] MEDS ORDERED: ASPIRIN 81 MG TAB.CHEW ONE (16:04)
--- NOTE | 2019-06-25 16:08 | NUR ---
Note cristiana in EDM - 06/25/19 at 1611 by [facility] Aspirin 162mg PO given. MD Tillman made aware medication not showing up in pyxis. Unable to document medication in eMAR. Verified medication with DAVONTE Resendiz
--- NOTE | 2019-06-25 16:08 | NUR ---
Aspirin 162mg PO given. MD Tillman made aware medication not showing up in pyxis. Unable to document medication in eMAR. Verified medication with DAVONTE Resendiz
[2019-06-25 16:23] LABS: CHOL/HDL RATIO 3.5 (1-4.5); MAGNESIUM 2.4 mg/dL (1.8-2.4); PHOSPHORUS 8.8 mg/dL (2.5-4.9); THYROID STIMULATING HORMONE 2.53 uIU/mL (0.34-3.74)
[2019-06-25] MEDS ORDERED: hydrALAZINE 20 MG/ML VIAL ONE (16:30)
--- NOTE | 2019-06-25 16:34 | NUR ---
HYDRALIZINE IVP 5 MG given.ORDERED BY SENG ELIZONDO. Unable to document medication in eMAR. Verified medication with DAVONTE VALLADARES
[2019-06-25 16:55] VITALS: BP 229/93
--- NOTE | 2019-06-25 16:55 | NUR ---
RECEIVED PT. FROM ER NURSE, KURTIS. PT. IS ALERT AND NOTED TO BE DISTRESSED. PT. IS TRIPODING, RESPIRATION RATE OF 26, PT. IS ON 02 3L WITH O2 STAT OF 97%. BP IS 229/93, HR 92, AND TEMP OF 97.1. IV ON THE LEFT AC 18G ON SALINE LOCK. DIALYSIS PORT PRESENT ON THE RIGHT SUBCLAVIAN. DIALYSIS ON SUNDAY, SUNDAY AND SUNDAY. MISSED DIALYSIS TODAY. CALL LIGHT WITHIN REACH. WILL CONTINUE TO MONITOR.
[2019-06-25] MEDS ORDERED: NON-FORMULARY ITEM (Hydralazine HCl (Hydralazine Hcl) 50 MG) PO SCH (17:00)
[2019-06-25] MEDS ORDERED: DEXTROSE 50% 50 ML SYR IVP PRN (17:00)
--- NOTE | 2019-06-25 17:04 | NUR ---
Patient will be admitted to care of [facility]. Admited to TELE. Will go to room 113. Belongings list completed. Report to HERB ARAUZ.
[2019-06-25] MEDS ORDERED: hydrALAZINE 20 MG/ML VIAL IVP SCH (17:30)
[2019-06-25] MEDS ORDERED: LABETALOL 100 MG/20 ML VIAL IVP SCH (17:32)
--- NOTE | 2019-06-25 17:40 | NUR ---
DR. ELIZONDO IS BY THE BEDSIDE. ORDERS TO GIVE LABETALOL IVP AND HYDRALAZINE PO GIVEN. NEW ORDERS FOR DIALYSIS IS ALSO GIVEN. WILL FOLLOW THROUGH.
--- NOTE | 2019-06-25 17:52 | NUR ---
LABETALOL IVP, HYDRALAZINE PO, AND RENVELA PO GIVEN. BP IS 229/93, HR 92, O2 97%. NO SIGNS OF DISTRESS FROM PT. AND RESPIRATION RATE HAS STARTED TO STABILIZE WITH 20 BPM. WILL CONTINUE TO MONITOR.
[2019-06-25] MEDS ORDERED: ALBUTEROL SULFATE/IPRATROPIU 3 ML SOL IH PRN (17:55)
[2019-06-25] MEDS: SEVELAMER CARBONATE 800 MG TAB PO SCH (17:59)
[2019-06-25] MEDS: hydrALAZINE 25 MG TAB PO SCH ×2 (18:00→20:37)
[2019-06-25] MEDS ORDERED: ASPIRIN 81 MG TAB.CHEW PO SCH (18:00)
[2019-06-25] MEDS ORDERED: MISC ORAL TAB PO PRN (18:15)
--- NOTE | 2019-06-25 18:15 | NUR ---
V/S REASSESS WITH BP 200/103, HR 68, AND O2 STAT 96%. WILL CONTINUE TO MONITOR.
--- NOTE | 2019-06-25 18:25 | NUR ---
PT. IS IN DIALYSIS NOW.
--- NOTE | 2019-06-25 18:56 | NUR ---
DIALYSIS STOPPED D/T PERMACATH DISPLACEMENT. WILL NOTIFY MD. RENAL CONSULT, DR. MCKEON, IS NOTIFIED. WILL CONTINUE TO MONITOR.
--- NOTE | 2019-06-25 19:00 | NUR ---
ENDORSED PT. TO YOKER NURSE, ISAURA, FOR CONTINUITY OF CARE.
--- NOTE | 2019-06-25 19:10 | NUR ---
RECEIVED ENDORSEMENT AT BEDSIDE FROM AM SHIFT RN. PATIENT IS ON BED. ALERT, ORIENTED, ABLE TO MAKE NEEDS KNOWN. HEBREW SPEAKING. ON 3LPM OF O2 VIA NC. RESPIRATION EVEN AND UNLABORED. IV SITE ON LAC GAUGE 18. R SUBCLAVIAN PERMACATH NOTED. PER ENDORSEMENT THEY STOP THE DIALYSIS DUE TO THE R SUBCLAVIAN SITE WAS BLEEDING AND THE DIALYSIS NURSE CONTACTED DR. MCKEON. THE R SUBCLAVIAN PERMA CATH IS NOT BLEEDING AT THIS TIME. NO SOB NOTED. NO C/O PAIN/DISCOMFORT. CALL LIGHT WITHIN REACH.
[2019-06-25] MEDS: ALBUTEROL SULFATE/IPRATROPIU 3 ML SOL IH SCH (19:52)
[2019-06-25 20:00] VITALS: BP 200/116
[2019-06-25] MEDS ORDERED: PIPERACILLIN/TAZOBACTAM 2.25 GM VIAL IV ONE (20:13)
--- NOTE | 2019-06-25 20:25 | NUR ---
UTILIZED SOFTWARE FIRMWARE ENGINEER PHONE FOR CONSENT TO GIVE INFORMATION TO FAMILY MEMBER. SOFTWARE FIRMWARE ENGINEER #[id number], FAMILY MEMBER REQUESTED FOR INFORMATION REGARDING PT, PT CONSENTED. EXPLAINED TO PT THE CREAM MAKER ROUTINE AND PROCEDURES AND TESTS NEEDED, PT VERBALIZED UNDERSTANDING. PT DENIES ANY PAIN AT THIS TIME. PT'S SISTER'S GRANDDAUGHTER'S NAME IS ZAIN #[phone], PERSON REQUESTING FOR INFORMATION AND TO TALK TO PT. CALLED ZAIN AND GAVE CONSENT TO CALL PT.
[2019-06-25] MEDS: PIPERACILLIN/TAZOBACTAM 2.25 GM in DEXTROSE 5% 50 ML IV SCH (20:43)
[2019-06-25] MEDS: BLOOD GLUCOSE MONITORING 1 DEV DEV FS SCH (20:45)
--- NOTE | 2019-06-25 20:45 | NUR ---
ADMINISTERED DUE MEDS ORDERED. TOLERATED WELL. NO SOB NOTED. MED EDUCATION PROVIDED. REINFORCEMENT NEEDED. FALL PRECAUTION PREVENTION IN PLACE. CALL LIGHT WITHIN REACH.
--- NOTE | 2019-06-25 21:55 | NUR ---
RECEIVED CRITICAL LAB REPORT FROM [facility](LAB). TROP [id number]. INFORMED DR. SIDDIQI, NNO.
[2019-06-25] MEDS: INSULIN LISPRO SLIDING SCALE 100 UNITS/ML VIAL SUBQ PRN (22:51)
[2019-06-26] VITALS: BP 149/89
[2019-06-26] MEDS: PIPERACILLIN/TAZOBACTAM 2.25 GM in DEXTROSE 5% 50 ML IV SCH ×4 (01:03→18:28)
--- NOTE | 2019-06-26 01:33 | NUR ---
OBTAINED CONSENT FOR SURGERY, REMOVAL OF DIALYSIS CATH. WITH DR. EPPS. LOG [employer] SERVICES USED. LOG RAFTER NO. [id number]. PATIENT VERBALIZED UNDERSTANDING AND SIGNED THE CONSENT.
[2019-06-26 04:00] VITALS: BP 194/89
--- NOTE | 2019-06-26 05:00 | NUR ---
INFORMED DR. SIDDIQI OF PATIENT [id number]/89. PATIENT IS ASYMPTOMATIC. MD WILL PUT IN A NEW ORDER. NOTED.
[2019-06-26] MEDS ORDERED: hydrALAZINE 20 MG/ML VIAL IVP SCH (05:05)
--- NOTE | 2019-06-26 05:18 | NUR ---
GAVE HYDRALAZINE 5MG IVP ONCE ORDERED. NO SOB NOTED.TOLERATED WELL. MED ED PROVIDED.
[2019-06-26] MEDS: BLOOD GLUCOSE MONITORING 1 DEV DEV FS SCH ×4 (06:00→20:44)
--- NOTE | 2019-06-26 06:04 | NUR ---
PATIENT IS AWAKE. CASE FITTER IS DRAWING BLOOD SAMPLE. GAVE ZOSYN IVPB ORDERED. NO A/R NOTED. NO SOB NOTED.
--- NOTE | 2019-06-26 06:35 | NUR ---
BLOOD PRESSURE RECHECKED AT 0615 186/94. NOTIFY DR. ELIZONDO. MD ORDERED TO GIVE THE HYDRALAZINE 50MG PO EARLY. PATIENT IS NOT IN DISTRESS. DENIES PAIN AND DISCOMFORT. PRE OP CHECK LIST DONE. BOTH EARRINGS TAPED. PATIENT MADE COMFORTABLE. WILL ENDORSE TO AM SHIFT. SAFETY MEASURES IN PLACE. CALL LIGHT WITHIN REACH AT ALL TIMES.
[2019-06-26] MEDS: hydrALAZINE 25 MG TAB PO SCH ×4 (06:36→21:00)
[2019-06-26 06:51] LABS: BASOPHILS # (AUTO) 0.1 K/uL (0.00-0.22); BASOPHILS % (AUTO) 0.8 % (0.0-2.0); EOSINOPHILS # (AUTO) 0.1 K/uL (0-0.4); EOSINOPHILS % (AUTO) 0.6 % (0.0-4.0); HEMATOCRIT 36.2 % (36-48); HEMOGLOBIN 11.9 g/dL (12.0-16.0); LYMPHOCYTES % (AUTO) 11.3 % (20.5-51.1); MEAN CORPUSCULAR HEMOGLOBIN 32 pg (27-31); MEAN CORPUSCULAR HGB CONC 33 g/dL (33-37); MEAN CORPUSCULAR VOLUME 97.3 fL (80-94); MONOCYTES # (AUTO) 0.6 K/uL (0.8-1.0); MONOCYTES % (AUTO) 7.5 % (1.7-9.3); NEUTROPHILS # (AUTO) 6.9 K/uL (1.8-7.7); NEUTROPHILS % (AUTO) 79.8 % (42.2-75.2); PLATELET COUNT (AUTO) 205 K/uL (140-450); RED BLOOD CELL COUNT(AUTO) 3.72 MIL/uL (4.20-5.40); RED CELL DISTRIBUTION WIDTH 16.3 % (11.6-13.7); WHITE BLOOD COUNT (AUTO) 8.6 K/uL (4.8-10.8)
[2019-06-26 06:56] LABS: ANION GAP 24.8 (8-16); CARBON DIOXIDE 21.3 mmol/L (21-32); POTASSIUM 5.1 mmol/L (3.5-5.1)
--- NOTE | 2019-06-26 07:20 | NUR ---
RECEIVED ENDORSEMENT AT BEDSIDE FROM CHEESE WEIGHER NURSE. PATIENT IS ASLEEP ON BED. AOX4. ON ROOM AIR. NO C/O PAIN/DISCOMFORT. RESPIRATION EVEN AND UNLABORED. NPO EXCEPT MEDS. IV SITE ON LEFT AC 18G ON SALINE LOCK. CALL LIGHT WITHIN REACH. WILL CONT TO MONITOR
[2019-06-26 07:21] LABS: MAGNESIUM 2.5 mg/dL (1.8-2.4); PHOSPHORUS 8.7 mg/dL (2.5-4.9)
[2019-06-26] MEDS: ALBUTEROL SULFATE/IPRATROPIU 3 ML SOL IH SCH ×3 (07:33→19:11)
[2019-06-26] MEDS ORDERED: MELATONIN 5MG TAB PO PRN (07:48)
[2019-06-26 08:00] VITALS: BP 146/63
[2019-06-26 08:06] LABS: CREATININE 11.8 mg/dL (0.6-1.3)
--- NOTE | 2019-06-26 08:16 | NUR ---
PATIENT HAS BEEN SCREENED AND CATEGORIZED MODERATE NUTRITION RISK. PATIENT WILL BE SEEN WITHIN 3-5 DAYS OF ADMISSION. 06/28/19 06/30/[address]
[2019-06-26] MEDS: LOSARTAN 50 MG TAB PO SCH (08:36)
[2019-06-26] MEDS: SEVELAMER CARBONATE 800 MG TAB PO SCH ×3 (08:37→18:17)
[2019-06-26] MEDS: LACTOBACILLUS RHAMNOSUS GG 1 EACH CAP PO SCH (08:37)
[2019-06-26] MEDS: CALCIUM ACETATE 667 MG TAB PO SCH (08:37)
--- NOTE | 2019-06-26 08:44 | NUR ---
DUE MORNING MEDS GIVEN. TOLERATED WELL
--- NOTE | 2019-06-26 10:10 | NUR ---
SEEN AND EVALUATED BY PT. WITH BMX1. PERICARE RENDERED BY STAFF. KEPT CLEAN DRY.
[2019-06-26] MEDS: LIDOCAINE 1% 500 MG/50 ML VIAL ONE ×2 (11:31→14:30)
[2019-06-26] MEDS: BUPIVACAINE-MPF/EPI 0.25% 10 ML VIAL INJ ONE ×2 (11:31→14:29)
[2019-06-26 11:55] VITALS: BP 161/72
--- NOTE | 2019-06-26 11:55 | NUR ---
PT OFF UNIT FOR SURGERY Addendum: 06/26/19 at 1156 by Bill Almonte RN IN STABLE CONDITION
[2019-06-26] MEDS ORDERED: LABETALOL 20 MG/4 ML VIAL IVP ONE (12:42)
[2019-06-26] MEDS ORDERED: hydrALAZINE 20 MG/ML VIAL ONE (12:42)
--- NOTE | 2019-06-26 14:20 | NUR ---
BACK TO UNIT FROM SURGERY FOR INSERTION OF TUNNELED DIALYSIS CATHETER ON LEFT JUGULAR VEIN AND REMOVAL OF RIGHT DIALYSIS CATHETER. IN STABLE CONDITION. AOX4, NO C/O PAIN, NO SOB. WILL CONT TO MONITOR
--- NOTE | 2019-06-26 14:55 | NUR ---
STARTED ON DIALYSIS
[2019-06-26 16:00] VITALS: BP 178/75
--- NOTE | 2019-06-26 18:20 | NUR ---
DIALYSIS IS FINISHED NOW, 3.6LITERS OUTPUT. BP IS 175/78, PULSE IS 70, O2 SATURATION IS 99% ON 3L O2 NC.
--- NOTE | 2019-06-26 19:18 | NUR ---
ENDORSED TO AED TRAINER NURSE FOR CONTINUITY OF CARE. PT IN STABLE CONDITION
--- NOTE | 2019-06-26 19:19 | NUR ---
RECEIVED BEDSIDE REPORT FROM DAY SHIFT NURSE ANGELO AND YOANA, PT STABLE, NO DISTRESS NOTED, IV TO L AC 18G PATENT, INTACT, INFUSING WELL, 2LPM O2 VIA NC, NO SOB NOTED, PT STATED HAVING NO PAIN AT THIS MOMENT, INITIAL ASSESSMENT DONE, ALL SAFETY PRECAUTION MET, CALL LIGHT WITHIN REACH, WILL CONTINUE TO MONITOR. Addendum: 06/26/19 at 1956 by Nay Xie RN LEFT UPPER CHEST TUNNELLED CATH IN PLACE, DRESSING CLEAN DRY AND INTACT.
[2019-06-26 20:00] VITALS: BP 134/56
[2019-06-26] MEDS: INSULIN LISPRO SLIDING SCALE 100 UNITS/ML VIAL SUBQ PRN (20:47)
--- NOTE | 2019-06-26 20:47 | NUR ---
BLOOD SUGAR CHECKED, 151, 2 UNITS OF HUMALOG GIVEN PER PROTOCOL, PT TOLERATED WELL, HYDRALAZINE DUE NOT GIVEN AT THIS TIME DUE TO PT JUST HAD MEDICATION AT 1817, DOSE TOO CLOSE TO PREVIOUS ADMINISTRATION. PT RESTING, NO DISTRESS NOTED, CALL LIGHT WITHIN REACH, WILL CONTINUE TO MONITOR.
--- NOTE | 2019-06-26 23:51 | NUR ---
PT SLEEPING, NO DISTRESS NOTED, CALL LIGHT WITHIN REACH, WILL CONTINUE TO MONITOR.
[2019-06-27] VITALS: BP 118/57
[2019-06-27] MEDS: PIPERACILLIN/TAZOBACTAM 2.25 GM in DEXTROSE 5% 50 ML IV SCH ×4 (00:08→18:18)
--- NOTE | 2019-06-27 02:10 | NUR ---
PT SLEEPING, NO DISTRESS NOTED, CALL LIGHT WITHIN REACH, WILL CONTINUE TO MONITOR.
[2019-06-27 04:00] VITALS: BP 153/56
--- NOTE | 2019-06-27 05:02 | NUR ---
PT PULLED IV, CATH INTACT, NEW IV INSERTED TO L WRIST 22G, PATENT INTACT, INFUSING WELL.
[2019-06-27] MEDS: BLOOD GLUCOSE MONITORING 1 DEV DEV FS SCH ×4 (06:12→20:16)
[2019-06-27] MEDS: ALBUTEROL SULFATE/IPRATROPIU 3 ML SOL IH SCH ×3 (06:56→19:28)
[2019-06-27 07:02] LABS: ANION GAP 16.9 (8-16); CARBON DIOXIDE 26.8 mmol/L (21-32); POTASSIUM 3.7 mmol/L (3.5-5.1)
--- NOTE | 2019-06-27 07:15 | NUR ---
ENDORSED PT TO DAY SHIFT NURSE MARITA ARAUZ, PT STABLE, NO DISTRESS NOTED, CALL LIGHT WITHIN REACH, WILL CONTINUE TO MONITOR.
--- NOTE | 2019-06-27 07:40 | NUR ---
RECEIVED REPORT FROM NIGHT NURSE. PT IS IN STABLE CONDITION, AAOX4 SITTING IN BED, NO DISTRESS NOTED, DENIES PAIN, RESPIRATION EVEN AND UNLABORED. IV IS PATENT AND INTACT. SAFETY MEASURES IN PLACE AND CALL LIGHT WITHIN REACH. WILL CONTINUE TO MONITOR
[2019-06-27 07:41] LABS: CREATININE 6.9 mg/dL (0.6-1.3)
[2019-06-27 08:00] VITALS: BP 161/61
[2019-06-27] MEDS: LOSARTAN 50 MG TAB PO SCH (09:30)
[2019-06-27] MEDS: CALCIUM ACETATE 667 MG TAB PO SCH (09:31)
[2019-06-27] MEDS: LACTOBACILLUS RHAMNOSUS GG 1 EACH CAP PO SCH (09:31)
[2019-06-27] MEDS: hydrALAZINE 25 MG TAB PO SCH ×4 (09:31→20:12)
[2019-06-27] MEDS: SEVELAMER CARBONATE 800 MG TAB PO SCH ×3 (09:38→17:18)
--- NOTE | 2019-06-27 09:40 | NUR ---
MEDICATION DUE GIVEN. SAFETY MEASURES IN PLACE AND CALL LIGHT WITHIN REACH. WILL CONTINUE MONITORING.
[2019-06-27 12:00] VITALS: BP 154/74
--- NOTE | 2019-06-27 12:38 | NUR ---
MEDICATION DUE GIVEN. SAFETY MEASURES IN PLACE AND CALL LIGHT WITHIN REACH. WILL CONTINUE TO MONITOR
[2019-06-27 16:00] VITALS: BP 148/66
--- NOTE | 2019-06-27 16:43 | NUR ---
BLOOD GLUCOSE MONITORING DUE DONE. SAFETY MEASURES IN PLACE AND CALL LIGHT WITHIN REACH. WILL CONTINUE TO MONITOR.
--- NOTE | 2019-06-27 17:20 | NUR ---
MEDICATIONS DUE GIVEN. PT IS AWAKE. SAFETY MEASURES IN PLACE AND CALL LIGHT WITHIN REACH. WILL CONTINUE TO MONITOR.
--- NOTE | 2019-06-27 18:25 | NUR ---
MEDICATIONS DUE GIVEN. SAFETY MEASURES IN PLACE CALL LIGHT WITHIN REACH. WILL CONTINUE TO MONITOR
--- NOTE | 2019-06-27 19:05 | NUR ---
RECEIVED ENDORSEMENT AT BEDSIDE FROM AM SHIFT RN. PATIENT IS SITTING BESIDE THE BED WATCHING TV. RESPIRATION EVEN AND UNLABORED. GRENADIAN SPEAKING. DENIES ANY PAIN/DISCOMFORT. NOT IN ANY ACUTE DISTRESS. LOW BED AND BED ALARM IN PLACE. CALL LIGHT WITHIN REACH.
--- NOTE | 2019-06-27 19:29 | NUR ---
ENDORSED TO NIGHT NURSE.PT IS STABLE , RESPIRATIONS UNLABORED. SAFETY MEASURES IN PLACE AND CALL LIGHT WITH IN REACH. WILL CONTINUE TO MONITOR.
[2019-06-27 20:00] VITALS: BP 143/69
--- NOTE | 2019-06-27 20:15 | NUR ---
ADMINISTERED DUE MEDS PER MD ORDER. PATIENT IS AWAKE. TOLERATED WELL.
--- NOTE | 2019-06-27 22:10 | NUR ---
PATIENT IS SITTING AND WATCHING TV. NOT IN ANY ACUTE DISTRESS. DENIES ANY PAIN/DISCOMFORT.
[2019-06-28] VITALS: BP 154/74
[2019-06-28] MEDS: PIPERACILLIN/TAZOBACTAM 2.25 GM in DEXTROSE 5% 50 ML IV SCH ×5 (00:23→21:55)
--- NOTE | 2019-06-28 00:26 | NUR ---
ADMINISTERED ZOSYN 2.25GM IVPB ORDERED. NO A/R NOTED
--- NOTE | 2019-06-28 03:11 | NUR ---
PATIENT IS RESTING. NO SOB NOTED. LOW BED AND BED ALARM IN PLACE. CALL LIGHT WITHIN REACH.
[2019-06-28 04:00] VITALS: BP 151/67
--- NOTE | 2019-06-28 04:00 | NUR ---
VITAL SIGNS TAKEN AND RECORDED. NOT IN ANY ACUTE DISTRESS
--- NOTE | 2019-06-28 05:52 | NUR ---
ADMINISTERED ZOSYN IVPB ORDERED. NO A/R NOTED. NO SOB NOTED. MED ED PROVIDED. CALL LIGHT WITHIN REACH
[2019-06-28] MEDS: BLOOD GLUCOSE MONITORING 1 DEV DEV FS SCH ×4 (06:31→21:00)
[2019-06-28 06:45] LABS: ANION GAP 16.8 (8-16); CARBON DIOXIDE 26.8 mmol/L (21-32); POTASSIUM 3.6 mmol/L (3.5-5.1)
[2019-06-28 06:50] LABS: MAGNESIUM 1.9 mg/dL (1.8-2.4); PHOSPHORUS 5.8 mg/dL (2.5-4.9)
[2019-06-28 06:55] LABS: BASOPHILS % (AUTO) 0.6 % (0.0-2.0); EOSINOPHILS # (AUTO) 0.4 K/uL (0-0.4); HEMATOCRIT 34.4 % (36-48); HEMOGLOBIN 11.4 g/dL (12.0-16.0); LYMPHOCYTES # (AUTO) 1.5 K/uL (2.5-16.5); LYMPHOCYTES % (AUTO) 19.8 % (20.5-51.1); MEAN CORPUSCULAR HEMOGLOBIN 32 pg (27-31); MEAN CORPUSCULAR HGB CONC 33 g/dL (33-37); MEAN CORPUSCULAR VOLUME 96.1 fL (80-94); MONOCYTES # (AUTO) 1.2 K/uL (0.8-1.0); MONOCYTES % (AUTO) 15.6 % (1.7-9.3); NEUTROPHILS # (AUTO) 4.4 K/uL (1.8-7.7); PLATELET COUNT (AUTO) 185 K/uL (140-450); RED BLOOD CELL COUNT(AUTO) 3.58 MIL/uL (4.20-5.40); RED CELL DISTRIBUTION WIDTH 15.8 % (11.6-13.7); WHITE BLOOD COUNT (AUTO) 7.4 K/uL (4.8-10.8)
--- NOTE | 2019-06-28 07:10 | NUR ---
ENDORSED PATIENT TO AM SHIFT RN FOR CONTINUITY OF CARE. PATIENT IS NOT IN ANY ACUTE DISTRESS. DENIES ANY PAIN.
[2019-06-28 07:13] LABS: CREATININE 8.7 mg/dL (0.6-1.3)
[2019-06-28] MEDS: ALBUTEROL SULFATE/IPRATROPIU 3 ML SOL IH SCH ×3 (07:22→19:00)
--- NOTE | 2019-06-28 07:30 | NUR ---
RECEIVED REPORT FROM NIGHT NURSE, PT IS IN STABLE CONDITION, AAOX4 SITTING ON THE BED, NO DISTRESS NOTED DENIES PAIN, RESPIRATION EVEN AND UNLABORED ON ROOM AIR. IV IN PLACE PATENT AND INTACT. SAFETY MEASURES IN PLACE AND CALL LIGHT WITHIN REACH. WILL CONTINUE TO MONITOR.
[2019-06-28 08:00] VITALS: BP 178/73
[2019-06-28] MEDS: SEVELAMER CARBONATE 800 MG TAB PO SCH ×3 (08:27→17:21)
[2019-06-28] MEDS: CALCIUM ACETATE 667 MG TAB PO SCH (08:33)
[2019-06-28] MEDS: LACTOBACILLUS RHAMNOSUS GG 1 EACH CAP PO SCH (08:34)
[2019-06-28] MEDS: hydrALAZINE 25 MG TAB PO SCH ×4 (08:36→21:56)
[2019-06-28] MEDS: LOSARTAN 50 MG TAB PO SCH (08:36)
--- NOTE | 2019-06-28 08:37 | NUR ---
MEDICATIONS DUE GIVEN, PT IS SCHEDULED FOR DIALYSIS. SAFETY MEASURES IN PLACE AND CALL LIGHT IN PLACE. WILL CONTINUE CURRENT PLAN OF CARE.
--- NOTE | 2019-06-28 10:43 | NUR ---
PATIENT UNABLE TO FOLLOW COMMANDS EVEN WITH DEMONSTRATION DURING INCENTIVE SPIROMETRY THERAPY
[2019-06-28 12:00] VITALS: BP 169/74
--- NOTE | 2019-06-28 12:55 | NUR ---
HD NURSE AT BEDSIDE TO START HD. WILL CONTINUE TO MONITOR.
--- NOTE | 2019-06-28 13:37 | NUR ---
SCHEDULED ORAL MEDICATIONS DUE GIVEN. ANTIBX IV MEDICATION NOT GIVEN AT THIS TIME DUE TO HD IN PROGRESS. WILL CONTINUE TO MONITOR.
--- NOTE | 2019-06-28 17:00 | NUR ---
HD COMPLETED AT THIS TIME, 2L OUT. PATIENT TOLERATED WELL. WILL CONTINUE TO MONITOR.
--- NOTE | 2019-06-28 17:28 | NUR ---
MEDICATIONS DUE GIVEN. SAFETY MEASURES IN PLACE AND CALL LIGHT WITHIN REACH. WILL CONTINUE TO MONITOR.
--- NOTE | 2019-06-28 19:16 | NUR ---
REPORTED TO NIGHT NURSE. PT IS STABLE. SAFETY MEASURES IN PLACE AND CALL LIGHT WITHIN REACH. WILL CONTINUE TO MONITOR.
--- NOTE | 2019-06-28 19:17 | NUR ---
RECEIVED REPORT FROM AM SHIFT RN. PATIENT IN LYING IN BED. AWAKE, ALERT. PUERTO RICAN SPEAKING. RESPIRATION EVEN AND UNLABORED. NO SOB NOTED. ON 3LPM O2 VIA NC. DENIES ANY PAIN/DISCOMFORT. PLAN OF CARE WAS DISCUSSED. LOW BED IN PLACE. BED ALARM ACTIVATED. CALL LIGHT WITHIN REACH. WILL CONTINUE TO MONITOR.
--- NOTE | 2019-06-28 21:56 | NUR ---
PATIENT IS AWAKE. NO SOB NOTED. ADMINISTERED DUE MEDS PER MD ORDER. NO A/R NOTED. TOLERATED WELL. MED ED PROVIDED. REINFORCEMENT NEEDED. BED ALARM AND LOW BED IN PLACE.
--- NOTE | 2019-06-28 23:30 | NUR ---
PATIENT IS AWAKE WATCHING TV. DENIES PAIN. KEPT WARM AND COMFORTABLE.
[2019-06-29] VITALS: BP 126/68
--- NOTE | 2019-06-29 03:00 | NUR ---
PATIENT IS SLEEPING. NO SOB NOTED. RESPIRATION EVEN AND UNLABORED.
[2019-06-29] MEDS: PIPERACILLIN/TAZOBACTAM 2.25 GM in DEXTROSE 5% 50 ML IV SCH ×3 (05:49→17:12)
[2019-06-29] MEDS: BLOOD GLUCOSE MONITORING 1 DEV DEV FS SCH ×4 (06:31→21:42)
--- NOTE | 2019-06-29 07:25 | NUR ---
PATIENT IS AWAKE. NOT IN ANY ACUTE DISTRESS. WILL ENDORSE TO AM SHIFT RN FOR CONTINUITY OF CARE.
--- NOTE | 2019-06-29 07:30 | NUR ---
RECEIVED PT. FROM BELT AND LINK ASSEMBLY SUPERVISOR NURSEMADI. PT. IS ALERT AND AWAKE IN BED. PT IS FULL CODE WITH NO KNOWN ALLERGIES. IV SITE ON THE LEFT WRIST 22G SALINE LOCK. PT. IS IN ROOM AIR WITH O2 STAT OF 98%. REVIEWED PLAN OF CARE. FALL PRECAUTIONS IN PLACED. CALL LIGHT WITHIN REACH. WILL CONTINUE TO MONITOR.
[2019-06-29 07:42] LABS: MAGNESIUM 1.8 mg/dL (1.8-2.4); PHOSPHORUS 5.2 mg/dL (2.5-4.9)
[2019-06-29 07:43] LABS: ANION GAP 15.7 (8-16); CARBON DIOXIDE 25.6 mmol/L (21-32); POTASSIUM 3.3 mmol/L (3.5-5.1)
[2019-06-29 07:46] LABS: BASOPHILS % (AUTO) 0.6 % (0.0-2.0); EOSINOPHILS # (AUTO) 0.5 K/uL (0-0.4); EOSINOPHILS % (AUTO) 6.5 % (0.0-4.0); HEMATOCRIT 35.9 % (36-48); HEMOGLOBIN 11.9 g/dL (12.0-16.0); LYMPHOCYTES # (AUTO) 1.4 K/uL (2.5-16.5); LYMPHOCYTES % (AUTO) 19.4 % (20.5-51.1); MEAN CORPUSCULAR HEMOGLOBIN 32 pg (27-31); MEAN CORPUSCULAR HGB CONC 33 g/dL (33-37); MEAN CORPUSCULAR VOLUME 96.3 fL (80-94); MONOCYTES % (AUTO) 14.4 % (1.7-9.3); NEUTROPHILS # (AUTO) 4.1 K/uL (1.8-7.7); NEUTROPHILS % (AUTO) 59.1 % (42.2-75.2); PLATELET COUNT (AUTO) 197 K/uL (140-450); RED BLOOD CELL COUNT(AUTO) 3.72 MIL/uL (4.20-5.40); RED CELL DISTRIBUTION WIDTH 15.7 % (11.6-13.7)
[2019-06-29 08:00] VITALS: BP 138/71
[2019-06-29] MEDS: ALBUTEROL SULFATE/IPRATROPIU 3 ML SOL IH SCH ×3 (08:25→19:18)
--- NOTE | 2019-06-29 09:01 | NUR ---
CHEST XRAY BEING DONE NOW. NO SIGNS OF DISTRESS NOTED FROM PT. WILL CONTINUE TO MONITOR.
[2019-06-29] MEDS: LACTOBACILLUS RHAMNOSUS GG 1 EACH CAP PO SCH (09:13)
[2019-06-29] MEDS: CALCIUM ACETATE 667 MG TAB PO SCH (09:19)
[2019-06-29] MEDS: SEVELAMER CARBONATE 800 MG TAB PO SCH ×3 (09:19→17:28)
[2019-06-29] MEDS: LOSARTAN 50 MG TAB PO SCH (09:20)
[2019-06-29] MEDS: hydrALAZINE 25 MG TAB PO SCH ×4 (09:20→21:44)
--- NOTE | 2019-06-29 09:27 | NUR ---
MORNING MEDICATIONS GIVEN. NO SIGNS OF DISTRESS. BP 147/67 AND PULSE OF 84. WILL CONTINUE TO MONITOR.
[2019-06-29] MEDS ORDERED: POTASSIUM CHLORIDE 10 MEQ TABER PO SCH (10:00)
--- NOTE | 2019-06-29 10:17 | NUR ---
K-DUR PO GIVEN FOR POTASSIUM LEVEL OF 3.3. NO SIGNS OF DISTRESS NOTED. WILL CONTINUE TO MONITOR.
--- NOTE | 2019-06-29 12:30 | NUR ---
AFTERNOON MEDICATIONS GIVEN. BP 150/74 AND HR 91. NO SIGNS OF DISTRESS NOTED. WILL CONTINUE TO MONITOR.
--- NOTE | 2019-06-29 15:13 | NUR ---
FOUND PATIENT ON ROOM AIR SPO2 98. LEFT ON ROOM AIR FOR SEVERAL MINUTES SPO2 MAINTAINED. COMPLETED HHN TREATMENT AND PATIENT REMAINED ON ROOM AIR POST TREATMENT.
[2019-06-29 16:00] VITALS: BP 150/85
--- NOTE | 2019-06-29 17:20 | NUR ---
BLOOD GLUCOSE CHECK WITH VALUE OF 104. NO INSULIN COVERAGE NEEDED. WILL CONTINUE TO MONITOR.
--- NOTE | 2019-06-29 17:30 | NUR ---
AFTERNOON MEDICATIONS GIVEN. BP 163/76 AND HR 79. NO SIGNS OF DISTRESS NOTED. WILL CONTINUE TO MONITOR.
--- NOTE | 2019-06-29 19:20 | NUR ---
RECEIVED REPORT FORM HERB ARAUZ DAYSHIFT NURSE AT BEDSIDE FOR CONTINUITY OF CARE, PT SITTING UP AND WATCHING TV IN BED ON ROOM AIR AND BREATHING WITH EVEN AND UNLABORED RESPIRATIONS ON ROOM AIR. IV SITE ON L WRIST 24 GUAGE INTACT AND RUNNING NORMAL SALINE AT 10MLS/HR TO KVO. DRESSING ON RIGHT SUBCLAVIAN INTACT WITH NO DRAINAGE NOTED. TUNNEL CATHETER ON LEFT SIDE INTACT WELL INTACT DRESSING AND NO S/S BLEEDING OR SWELLING.
--- NOTE | 2019-06-29 19:20 | NUR ---
ENDORSED PT. TO ROLL ICER MACHINE NURSE, TYE, FOR CONTINUITY OF CARE.
--- NOTE | 2019-06-29 19:25 | NUR ---
RECEIVED REPORT FROM AM SHIFT. PATIENT APPEARS TO BE IN NO APPARENT RESPIRATORY DISTRESS AT THIS TIME: RR 16, HR 85, AND SPO2 98% ON ROOM AIR. UPPER LOBES BREATH SOUNDS: CLEAR BILATERALLY. LOWER BASES BREATH SOUNDS: RALES BILATERALLY. HHN TX GIVEN ORDERED AND PATIENT TOLERATED WELL WITH NO ADVERSE REACTION. PT WAS ALSO INFORMED TO CALL RN OR LOGISTICS OFFICER WHEN EXPERIENCING SOB FOR PRN TX. WILL CONTINUE TO MONITOR PT.
--- NOTE | 2019-06-29 21:00 | NUR ---
PT SITTING UP IN BED NO S/S OF PAIN OR DISTRESS NOTED. USED SMALL BRAKE FORM OPERATOR EDILIA [employer]IA [employer] SYSTEM TO INTERPRET SO PT CAN UNDERSTAND HER MEDICATIONS AND WHY SHE IS TAKING THEM. PT ACKNOWLEDGED MEDICATION ADMINISTRATION OF DUE MEDS OF APRESOLINE BENEFITS ND SIDE EFFECTS EXPLAINED. PT V/S FOLLOW: T 98.2 P 82 R 18 B/P 159/77 02 96% ON ROOM AIR. PT FINGERSTICK IS 112, NO HUMALOG COVERAGE NEEDED. INCENTIVE SPIROMETER EXPLAINED AND PT ENCOURAGED TO USE IT, EVEN WITH SMALL BRAKE FORM OPERATOR, PT GAVE POOR RESPONSE. PT HAS NO C/O AT THIS TIME AND ALL FALLS PRECAUTIONS IN PLACE.
[2019-06-29] MEDS: INSULIN LISPRO SLIDING SCALE 100 UNITS/ML VIAL SUBQ PRN (21:39)
--- NOTE | 2019-06-29 21:45 | NUR ---
[facility] NURSE CALLED TO CONFIRM PT HD ORDER FOR TOMORROW.
--- NOTE | 2019-06-29 23:00 | NUR ---
LAB CALLED REGARDING PENDING URINE AND SPUTUM SAMPLES, SPOKE WITH MD REGARDING PT BEING ANURIC AND ON HD. MD TO CANCEL URINE SAMPLE AND HAVE RT TRY AND ASSIST WITH SPUTUM SAMPLE.
[2019-06-30] VITALS: BP 163/73
--- NOTE | 2019-06-30 00:30 | NUR ---
PT ON FALLS PRECAUTIONS , SHE WAS ASSISTED TO TOILET AND BACK TO BED. V/S FOLLOWS: T 98.5 R 17 B/P 163/73 02 96% ON ROOM AIR. WILL SPEAK TO MD REGARDING PT B/P CREEPING UP. PT DENIES PAIN AND IS ASYMPTOMATIC OF HER HTN.
[2019-06-30] MEDS: PIPERACILLIN/TAZOBACTAM 2.25 GM in DEXTROSE 5% 50 ML IV SCH (00:50)
--- NOTE | 2019-06-30 01:10 | NUR ---
SPOKE WITH RESIDENT MD AMADOR, WHO SAID TO RECHECK B/P LATER PT ALREADY HAS APRESOLINE STANDING ORDER. IF STILL HIGH, MD WILL ORDER PO/PRN CLONIDINE.
--- NOTE | 2019-06-30 02:15 | NUR ---
RETOOK PT B/P AND SPOKE WITH MD AMADOR, WHOM ORDERED PO/PRN CLONIDINE Q8HR FOR SPB OVER 160.
[2019-06-30] MEDS ORDERED: cloNIDine 0.1 MG TAB PO PRN (02:20)
--- NOTE | 2019-06-30 02:40 | NUR ---
PT GIVEN PO/PRN CLONIDINE 0.1MG WILL RE-ASSES B/P AT 0400.
--- NOTE | 2019-06-30 04:00 | NUR ---
RETAKE OF B/P IS 144/73 PULSE IS 74. MD MADE AWARE THAT B/P WENT DOWN.
[2019-06-30 06:13] LABS: BASOPHILS # (AUTO) 0.1 K/uL (0.00-0.22); BASOPHILS % (AUTO) 0.9 % (0.0-2.0); EOSINOPHILS # (AUTO) 0.6 K/uL (0-0.4); EOSINOPHILS % (AUTO) 7.2 % (0.0-4.0); HEMATOCRIT 34.3 % (36-48); HEMOGLOBIN 11.3 g/dL (12.0-16.0); LYMPHOCYTES # (AUTO) 1.7 K/uL (2.5-16.5); LYMPHOCYTES % (AUTO) 20.2 % (20.5-51.1); MEAN CORPUSCULAR HEMOGLOBIN 32 pg (27-31); MEAN CORPUSCULAR HGB CONC 33 g/dL (33-37); MEAN CORPUSCULAR VOLUME 96.6 fL (80-94); MONOCYTES # (AUTO) 0.9 K/uL (0.8-1.0); MONOCYTES % (AUTO) 10.6 % (1.7-9.3); NEUTROPHILS # (AUTO) 5.2 K/uL (1.8-7.7); NEUTROPHILS % (AUTO) 61.1 % (42.2-75.2); PLATELET COUNT (AUTO) 211 K/uL (140-450); RED BLOOD CELL COUNT(AUTO) 3.55 MIL/uL (4.20-5.40); RED CELL DISTRIBUTION WIDTH 16.2 % (11.6-13.7); WHITE BLOOD COUNT (AUTO) 8.5 K/uL (4.8-10.8)
[2019-06-30 06:30] LABS: ANION GAP 17.7 (8-16); CARBON DIOXIDE 23.6 mmol/L (21-32); POTASSIUM 4.3 mmol/L (3.5-5.1)
[2019-06-30 06:41] LABS: MAGNESIUM 1.9 mg/dL (1.8-2.4); PHOSPHORUS 5.2 mg/dL (2.5-4.9)
--- NOTE | 2019-06-30 07:00 | NUR ---
RECEIVED PT FROM MARINE ENGINEERING CONSULTANT NURSE TYE-DAVONTE. PT RESTING IN BED. AOX4- BELARUSIAN SPEAKING. FALL PRECAUTIONS. LEFT TUNNELED CATH AND LEFT #22G WRIST RUNNING AT TKO 10 ML/HR. DISCUSSED PLAN OF CARE AND PT VERBALIZED UNDERSTANDING. NO S/S OF RESPIRATORY DISTRESS OR DISCOMFORT NOTED AT THIS TIME. WILL CONTINUE TO MONITOR.
[2019-06-30 07:23] LABS: CREATININE 7.6 mg/dL (0.6-1.3)
--- NOTE | 2019-06-30 07:30 | NUR ---
BLOOD GLUCOSE 82. ENCOURAGED TO DRINK ORANGE JUICE. FOOD TRAY IN ROOM AND BEGAN TO EAT AFTER BLOOD GLUCOSE DETERMINED. TOLERATED WELL. NO S/S OF RESPIRATORY DISTRESS OR DISCOMFORT NOTED AT THIS TIME. WILL CONTINUE TO MONITOR.
[2019-06-30] MEDS: ALBUTEROL SULFATE/IPRATROPIU 3 ML SOL IH SCH ×2 (07:47→12:56)
[2019-06-30 08:00] VITALS: BP 137/60
[2019-06-30] MEDS: BLOOD GLUCOSE MONITORING 1 DEV DEV FS SCH ×3 (08:03→16:45)
[2019-06-30] MEDS: SEVELAMER CARBONATE 800 MG TAB PO SCH ×3 (08:21→16:57)
--- NOTE | 2019-06-30 08:21 | NUR ---
SCHEDULED MEDICATION RENVELA GIVEN AND TOLERATED WELL. NO S/S OF RESPIRATORY DISTRESS OR DISCOMFORT NOTED AT THIS TIME. WILL CONTINUE TO MONITOR.
[2019-06-30] MEDS ORDERED: LACT10CA PO (08:43)
[2019-06-30] MEDS ORDERED: ZOS2.25PM IV (08:43)
[2019-06-30] MEDS: hydrALAZINE 25 MG TAB PO SCH ×3 (09:00→16:57)
[2019-06-30] MEDS: LOSARTAN 50 MG TAB PO SCH (09:00)
--- NOTE | 2019-06-30 10:27 | NUR ---
DISCHARGE PLANNING: THIS IS A 64 Y/O MALE PATIENT FROM HOME, WHO CAME IN DUE TO GENERALIZED WEAKNESS AND ELEVATED BP. PAST MEDICAL HISTORY INCLUDE ESRD ON HD T-, HTN, DM AND ANEMIA. INITIAL DIAGNOSIS OF HYPERTENSIVE URGENCY, RENAL FAILURE, ACS. CURRENT LABS INCLUDE WBC 8.5, H/H 11.3/34.3, NA/K 135/4.3, BUN/CREA 32/7.6. CARDIO, PULMO AND NEPHRO CONSULTS IN PLACE. ON APRESOLINE, LOSARTAN, CATAPRES AND BREATHING TREATMENT. DC PLAN TO SNF FOR PT AND IV ANTIBIOTIC. Addendum: 06/30/19 at 1131 by Pham Woods CM DC PLANNING CALLED [facility] [phone] SPOKE WITH JADE NIÑO PT'S DIALYSIS DAY TT, CHAIR TIME 1PM. CALLED [facility] SPOKE WITH ZOHRA JOHNSON DIRECT AND NOTIFIED THE TIME . CALLED [facility] LEFT A MESSAGE FOR [facility] AT [phone] FOR TRANSPORT AUTH. TO FOLLOW. Addendum: 06/30/19 at 1433 by Pham Woods CM DC PLANNING [facility] ACCEPTED PATIENT CAN GO TO ROOM 20A # TO GIVE REPORT [phone] ZOHRA FROM [facility] ARRANGED TRANSPORT LEATHER SKINNER TIME 5 PM NOTIFIED JANES ARAUZ.
[2019-06-30] MEDS: CALCIUM ACETATE 667 MG TAB PO SCH (10:28)
[2019-06-30] MEDS: LACTOBACILLUS RHAMNOSUS GG 1 EACH CAP PO SCH (10:28)
--- NOTE | 2019-06-30 10:28 | NUR ---
SCHEDULED MEDICATION CULTURELLE AND PHOSLO GIVEN AND TOLERATED WELL. APRESOLINE AND COZAAR NOT GIVEN BP 137/60, HR 69. BP TAKEN AGAIN 128/60, HR 68. NO S/S OF RESPIRATORY DISTRESS OR DISCOMFORT NOTED AT THIS TIME. WILL CONTINUE TO MONITOR.
--- NOTE | 2019-06-30 10:30 | NUR ---
NURSE MYERS IN WITH PATIENT FOR DIALYSIS
--- NOTE | 2019-06-30 11:30 | NUR ---
BLOOD GLUCOSE 143. NO INSULIN COVERAGE NEEDED. PT TOLERATED WELL. NO S/S OF RESPIRATORY DISTRESS OR DISCOMFORT NOTED AT THIS TIME. WILL CONTINUE TO MONITOR.
--- NOTE | 2019-06-30 13:00 | NUR ---
SCHEDULED MEDICATION APRESOLINE NOT GIVEN DUE TO DECREASED BLOOD PRESSURE 105/48. NO S/S OF RESPIRATORY DISTRESS OR DISCOMFORT NOTED AT THIS TIME. WILL CONTINUE TO MONITOR.
--- NOTE | 2019-06-30 13:42 | NUR ---
SCHEDULED MEDICATION RENVELA GIVEN. NURSE [facility] ADVISED TO HOLD MEDICATION UNTIL HD WAS COMPLETED AND PATIENT WAS ABLE TO EAT. NO S/S OF RESPIRATORY DISTRESS OR DISCOMFORT NOTED AT THIS TIME. WILL CONTINUE TO MONITOR.
--- NOTE | 2019-06-30 14:58 | NUR ---
SCHEDULED MEDICATION ZOSYN GIVEN AND TOLERATED WELL. NO S/S OF RESPIRATORY DISTRESS OR DISCOMFORT NOTED AT THIS TIME. WILL CONTINUE TO MONITOR. Addendum: 06/30/19 at 1625 by Fely Hernandez RN PLEASE DISREGARD. WRONG PATIENT
[2019-06-30 16:00] VITALS: BP 120/56
--- NOTE | 2019-06-30 16:45 | NUR ---
BLOOD GLUCOSE 96. TOLERATED WELL. NO INSULIN COVERAGE NEEDED. NO S/S OF RESPIRATORY DISTRESS OR DISCOMFORT NOTED AT THIS TIME. WILL CONTINUE TO MONITOR.
--- NOTE | 2019-06-30 16:50 | NUR ---
SPOKE WITH MYRA YUSUF REGARDING SPUTUM CULTURE. PER RT PT HAS BEEN DRY AND HAVE BEEN UNSUCCESSFUL COLLECTING SPECIMEN.
--- NOTE | 2019-06-30 16:57 | NUR ---
SCHEDULED MEDICATION RENVELA GIVEN AND TOLERATED WELL. APRESOLINE NOT GIVEN DECREASED BP 131/68 HR 84.
[2019-06-30 17:17] VITALS: BP 131/68
--- NOTE | 2019-06-30 17:30 | NUR ---
SPOKE WITH JENNIFER AT [facility]. RECEIVED REPORT.
--- NOTE | 2019-06-30 17:48 | NUR ---
PATIENT WAS DISCHARGED WITH TRANSPORT TO [facility]. ID BANDS TAKEN OFF. IV SITE LEFT WRIST #22G SL IN PLACE FOR FACILITY TO USE IN CONTINUATION OF ABX. DISCHARGE PAPERWORK SIGNED. PT VERBALIZED UNDERSTANDING ON CONTINUATION OF ABX AND PHYSICAL THERAPY. DR. ELIZONDO PRESENT DURING EDUCATION. NO S/S OF RESPIRATORY DISTRESS OR DISCOMFORT NOTED AT THIS TIME.
== END 2019-06-30 17:50 | DRG 280 ==
LOC: MED 12:43 → MTU 15:32
PROVIDERS: ADMIT General Practice; ATTEND General Practice
PROC: 5A1D70Z Performance of Urinary Filtration, Intermittent, Less than 6 Hours Per Day (ICD-10-PCS; 2019-06-25)
PROC: 5A1D70Z Performance of Urinary Filtration, Intermittent, Less than 6 Hours Per Day (ICD-10-PCS; 2019-06-26)
PROC: 0JPT3XZ Removal of Tunneled Vascular Access Device from Trunk Subcutaneous Tissue and Fascia, Percutaneous Approach (ICD-10-PCS; 2019-06-26)
PROC: 02PYX3Z Removal of Infusion Device from Great Vessel, External Approach (ICD-10-PCS; 2019-06-26)
PROC: 02HV33Z Insertion of Infusion Device into Superior Vena Cava, Percutaneous Approach (ICD-10-PCS; 2019-06-26)
PROC: 0JH63XZ Insertion of Tunneled Vascular Access Device into Chest Subcutaneous Tissue and Fascia, Percutaneous Approach (ICD-10-PCS; 2019-06-26)
PROC: B5181ZA Fluoroscopy of Superior Vena Cava using Low Osmolar Contrast, Guidance (ICD-10-PCS; 2019-06-26)
PROC: B548ZZA Ultrasonography of Superior Vena Cava, Guidance (ICD-10-PCS; 2019-06-26)
PROC: 5A1D70Z Performance of Urinary Filtration, Intermittent, Less than 6 Hours Per Day (ICD-10-PCS; 2019-06-28)
PROC: 5A1D70Z Performance of Urinary Filtration, Intermittent, Less than 6 Hours Per Day (ICD-10-PCS; principal; 2019-06-30)
DX: T82.42XA Displacement of vascular dialysis catheter, initial encounter (principal); J69.0 Pneumonitis due to inhalation of food and vomit; I21.A1 Myocardial infarction type 2; N17.0 Acute kidney failure with tubular necrosis; N18.6 End stage renal disease; I50.43 Acute on chronic combined systolic (congestive) and diastolic (congestive) heart failure; E44.1 Mild protein-calorie malnutrition; I16.1 Hypertensive emergency; I13.2 Hypertensive heart and chronic kidney disease with heart failure and with stage 5 chronic kidney disease, or end stage renal disease; E87.1 Hypo-osmolality and hyponatremia; Z68.27 Body mass index [BMI] 27.0-27.9, adult; E11.22 Type 2 diabetes mellitus with diabetic chronic kidney disease; E78.5 Hyperlipidemia, unspecified; G47.00 Insomnia, unspecified; J45.909 Unspecified asthma, uncomplicated; Z91.14 Patient's other noncompliance with medication regimen; E87.6 Hypokalemia; E83.39 Other disorders of phosphorus metabolism; I35.1 Nonrheumatic aortic (valve) insufficiency; Y84.1 Kidney dialysis as the cause of abnormal reaction of the patient, or of later complication, without mention of misadventure at the time of the procedure; Y92.89 Other specified places as the place of occurrence of the external cause; D63.1 Anemia in chronic kidney disease
CPT/HCPCS: 36415; 70450; 71045; 80048; 80053; 82948; 83036; 83605; 83690; 83735; 83880; 84100; 84134; 84443; 84484; 85025; 85610; 85730; 87040; 87081; 90935; 93005; 93970; 94640; 96374; 96375; 97110; 97112; 97116; 97161-GP; 97530; 99285; C1750; J0360; J1644; J1815; J2001; J2543; J3490; J7030; J7060; Q0092

== ENCOUNTER 2019-10-07 19:53 | Inpatient (IN) | payer OTHER, SELFPAY ==
[~2019-10-07] VITALS: Ht 165.1 cm; Wt 63.0 kg
[~2019-10-07 19:53] MED LIST changes: +LACT10CA PO; +ZOS2.25PM IV
--- NOTE | 2019-10-07 20:00 | NUR ---
Note cristiana in EDM - 10/08/19 at 0431 by [employer] 64 YEAR OLD FEMALE COMPLAINS OF DIFFUSE ABDOMINAL PAIN X 3 DAYS. PT STATES THAT SHE FEELS LIKE THERE IS ALOT OF GAS BUT UNABLE TO FART. PT ALSO COMPLAINS OF NAUSEA, BUT NO VOMITTING. PT AOX4, BREATHING EVEN AND UNLABORED, SKIN WARM AND DRY. BED IN LOWEST POSITION, LOCKED, BED RAIL UPX1. PMH - HYSTERECTOMY ALLERGIES - CODEINE
[2019-10-07 20:10] VITALS: BP 140/68
--- NOTE | 2019-10-07 20:33 | NUR ---
PT IN RM 2, 4L/MIN NC OXYGEN SAT AT 97%, PT RESTING QUIETLY, SIDE RAIL X2, BED IN LOW POSITION WILL CONTINUE TO ASSESS, AND MONITOR. COVID PRECAUTIONS IN PLACE.
--- NOTE | 2019-10-07 21:27 | NUR ---
PT IN RM 2, 4L/MIN NC OXYGEN SAT AT 98%, PT RESTING QUIETLY, SIDE RAIL X2, BED IN LOW POSITION WILL CONTINUE TO ASSESS, AND MONITOR. COVID PRECAUTIONS IN PLACE.
[2019-10-07 21:33] LABS: BASOPHILS % (AUTO) 0.2 % (0.0-2.0); HEMATOCRIT 41.3 % (36-48); HEMOGLOBIN 13.7 g/dL (12.0-16.0); LYMPHOCYTES # (AUTO) 0.5 K/uL (2.5-16.5); MEAN CORPUSCULAR HEMOGLOBIN 31 pg (27-31); MEAN CORPUSCULAR HGB CONC 33 g/dL (33-37); MEAN CORPUSCULAR VOLUME 92.6 fL (80-94); MONOCYTES # (AUTO) 0.5 K/uL (0.8-1.0); MONOCYTES % (AUTO) 5.2 % (1.7-9.3); NEUTROPHILS # (AUTO) 8.8 K/uL (1.8-7.7); NEUTROPHILS % (AUTO) 89.6 % (42.2-75.2); PLATELET COUNT (AUTO) 131 K/uL (140-450); RED BLOOD CELL COUNT(AUTO) 4.46 MIL/uL (4.20-5.40); RED CELL DISTRIBUTION WIDTH 16.6 % (11.6-13.7); WHITE BLOOD COUNT (AUTO) 9.9 K/uL (4.8-10.8)
--- NOTE | 2019-10-07 21:43 | NUR ---
64 Y/O FEMALE BIB ALS FROM [facility]. PER EMS UPON ARRIVAL TO [facility], PT HAD ALOC, AND LOW OXYGEN SATURATION. ON ARRIVAL TO [facility] PT IS HYPOXIC (83%), AND FEBRILE (103.1). PT COVID POSITIVE OF 09/28/19. PT IS NOT RESPONDING TO OR ANSWERING QUESTIONS. PT APPEARS CONFUSED. R/R EQUAL, AND LABORED. PLACED ON 4L/AL NC, O2 SAT WENT TO 98%. PT PLACED IN RM 1, COVID PRECAUTIONS IN PLACE. SIDE RAIL X2, BED IN LOW POSITION, WILL CONTINUE TO MONITOR. NKDA PMH: ESRD; DEMENTIA; SCHIZOAFFECTIVE, HTN, HYPERLIPIDEMIA
[2019-10-07 22:09] LABS: ALBUMIN 3.5 g/dL (3.4-5.0); ANION GAP 19.3 (8-16); ASPARTATE AMINOTRANSFERASE 27 U/L (15-37); CARBON DIOXIDE 26.5 mmol/L (21-32); CHLORIDE 92 mmol/L (98-107); GFR ARICAN-AMERICAN 6 mL/min (>90); GLUCOSE 114 mg/dL (74-106); POTASSIUM 3.8 mmol/L (3.5-5.1); SODIUM SERUM 134 mmol/L (136-145); TOTAL BILIRUBIN 1.4 mg/dL (0.0-1.0); UREA NITROGEN, BLOOD 30 mg/dL (7-18)
[2019-10-07 22:13] LABS: ACETAMINOPHEN < 0.5 ug/ml (10-30); CREATININE 8.9 mg/dL (0.6-1.3); SALICYLATE < 2.8 mg/dL (2.8-20.0)
--- NOTE | 2019-10-07 22:14 | NUR ---
# 16 FR [place] catheter with ml utilizing sterile technique. Immediate return of 0 ml OF urine noted. Bedside drainage bag placed below level of bladder. Urine sample collected and sent to lab. Pt tolerated procedure WELL.
--- NOTE | 2019-10-07 22:24 | NUR ---
CALLED AND SPOKE TO PT'S DAUGHTER REGARDING WHO HER WILLOW MACHINE OPERATOR IS. DAUGHTER STATED SHE IS UNAWARE, AND TO CONTACT GIANNI HARTLEY ABOUT PT'S PHYSICIANS. WILL ATTEMPT TO CONTACT GIANNI HARTLEY .
[2019-10-07] MEDS ORDERED: CEFEPIME 1,000 MG in DEXTROSE 5% 50 ML IV ONE (22:25)
[2019-10-07] MEDS ORDERED: VANCOMYCIN 1,000 MG in DEXTROSE 5% 250 ML IV ONE (22:25)
--- NOTE | 2019-10-07 22:30 | NUR ---
PT IN RM 2, 4L/MIN NC OXYGEN SAT AT 98%, BP IS ELEVATED 189/94 ERMD MADE AWARE. PT SLEEPING, R/R EQUAL AND UNLABORED. SIDE RAIL X2, BED IN LOW POSITION WILL CONTINUE TO ASSESS, AND MONITOR. COVID PRECAUTIONS IN PLACE.
--- NOTE | 2019-10-07 22:38 | NUR ---
RAJNI REQUESTED NAME OF PT'S TIRE REPAIRER. CALLED GIANNI HARTLEY, AND SPOKE WITH BESSY. SHE WAS UNABLE TO GIVE ME THE NAME OF TIRE REPAIRER. BUT STATED PT WENT TO DIALYSIS EARLIER TODAY AT [facility], AND UPON RETURNING PT HAD ALOC.
[2019-10-07] MEDS ORDERED: CEFEPIME 1,000 MG VIAL ONE (22:45)
[2019-10-07] MEDS ORDERED: VANCOMYCIN 1,000 MG VIAL ONE (22:46)
[2019-10-07 23:13] LABS: APPEARANCE,URINE SL CLOUDY (CLEAR); BILIRUBIN,URINE NEGATIVE (NEGATIVE); BLOOD, URINE 3+ (NEGATIVE); COLOR,URINE YELLOW (YELLOW); LEUKOCYTE ESTERASE ,URINE NEGATIVE (NEGATIVE); NITRITE, URINE NEGATIVE (NEGATIVE); PH,URINE >=9.0 (5.0-9.0); UGLUCOSE TRACE (NEGATIVE)
[2019-10-07 23:21] LABS: BARBITURATE, URINE NEGATIVE ng/ml (NEG <=200); BENZODIAZEPINE, URINE NEGATIVE ng/mL (NEG <=200); CANNABINOID, URINE NEGATIVE ng/mL (NEG <=50); COCAINE, URINE NEGATIVE ng/mL (NEG <=300); OPIATE, URINE NEGATIVE ng/mL (NEG <=2000); PHENCYCLIDINE SCREEN,URINE NEGATIVE ng/mL (NEG <=25)
[2019-10-07] MEDS ORDERED: ACETAMINOPHEN 650 MG SUPP RC ONE (23:30)
--- NOTE | 2019-10-07 23:30 | NUR ---
CEFEPIME 1,000MG IN D5% 50ML ADMINISTERED, FINISHED 0003, PT TOLERATED MEDICATION, WITHOUT ALLERGIC REACTION.
[2019-10-07 23:35] LABS: WBC,URINE 0-5 /HPF (0-5)
[2019-10-07] MEDS ORDERED: MORPHINE SULFATE 2 MG/ML SYR IVP PRN (23:35)
[2019-10-07] MEDS ORDERED: ONDANSETRON 4 MG/2 ML VIAL IM/IVP PRN (23:35)
[2019-10-07] MEDS ORDERED: DOCUSATE SODIUM 100 MG GELCAP PO PRN (23:35)
[2019-10-07] MEDS ORDERED: HYDROcodone/APAP 5/325 MG 1 TAB TAB PO PRN (23:35)
[2019-10-07] MEDS ORDERED: ACETAMINOPHEN 325 MG TAB PO PRN (23:35)
--- NOTE | 2019-10-07 23:48 | NUR ---
4L/MIN NC OXYGEN SAT AT 96%, PT SLEEPING, R/R EQUAL AND UNLABORED. SIDE RAIL X2, BED IN LOW POSITION WILL CONTINUE TO ASSESS, AND MONITOR. COVID PRECAUTIONS IN PLACE
--- NOTE | 2019-10-08 00:07 | NUR ---
TYLENOL 650MG ADMINISTERED RECTALLY FOR FEVER. PT TOLERATED WELL, WILL CONTINUE TO MONITOR
[2019-10-08 00:26] LABS: MAGNESIUM 1.8 mg/dL (1.8-2.4); PHOSPHORUS 4.6 mg/dL (2.5-4.9); THYROID STIMULATING HORMONE 1.8 uIU/mL (0.34-3.74)
--- NOTE | 2019-10-08 01:00 | NUR ---
Patient will be admitted to care of DR. ARMANDO. Admited to TELE. Will go to room 129 A. Belongings list completed. Report to DAVONTE RODRIGUEZ.
--- NOTE | 2019-10-08 01:00 | NUR ---
RECEIVED PATIENT REPORT FROM ER NURSE BRIA AT 0100. ALERT TO NAME, RICARDO HAS ALOC, SEEMS CONFUSED, PATIENT ARRIVED VIA GURNEY AND IS ON TELE MONITOR. SHE HAS A 18 GAUGE IV TO RIGHT UPPER ARM, O2 VIA NC AT 3L, PATIENT O2 SAT AT 97%. DIALYSIS ACCESS TO LEFT UPPER CHEST. [place] CATHETER IN PLACE. WILL CONTINUE TO MONITOR, BED IN LOW POSITION AND CALL LIGHT WITHIN REACH.
--- NOTE | 2019-10-08 03:00 | NUR ---
PATIENT SLEEPING, NO S/S OF DISTRESS, TEMP IS DOWN TO 99.1, AND O2 AT 3L VIA NC. O2 SAT 95%. WILL CONTINUE TO MONITOR. BED IN LOW POSITION AND CALL LIGHT WITHIN REACH.
[2019-10-08 04:00] VITALS: BP 130/92
--- NOTE | 2019-10-08 05:15 | NUR ---
PATIENT SLEEPING, VITAL SIGNS STABLE, O2 SAT 96% NO S/S OF DISTRESS NOTED. WILL CONTINUE TO MONITOR
[2019-10-08 06:20] LABS: HEMATOCRIT 40.7 % (36-48); HEMOGLOBIN 13.2 g/dL (12.0-16.0); MEAN CORPUSCULAR HEMOGLOBIN 30 pg (27-31); MEAN CORPUSCULAR HGB CONC 33 g/dL (33-37); MEAN CORPUSCULAR VOLUME 93.4 fL (80-94); PLATELET COUNT (AUTO) 132 K/uL (140-450); RED BLOOD CELL COUNT(AUTO) 4.36 MIL/uL (4.20-5.40); WHITE BLOOD COUNT (AUTO) 19.4 K/uL (4.8-10.8)
[2019-10-08 06:40] LABS: ANION GAP 18.4 (8-16); CARBON DIOXIDE 25.5 mmol/L (21-32); POTASSIUM 3.9 mmol/L (3.5-5.1)
[2019-10-08 07:07] LABS: MAGNESIUM 1.8 mg/dL (1.8-2.4); PHOSPHORUS 5.4 mg/dL (2.5-4.9)
[2019-10-08 07:08] LABS: CHOL/HDL RATIO 2.3 (1-4.5)
--- NOTE | 2019-10-08 07:15 | NUR ---
REPORT GIVEN TO AM SHIFT NURSE FOR CONTINUITY OF CARE, PATIENT IN STABLE CONDITION AT THIS TIME. CALL LIGHT WITHIN REACH NAD BED IN LOW POSITION
--- NOTE | 2019-10-08 07:16 | NUR ---
RECEIVED REPORT FROM TURKISH RUBBER NURSE. PATIENT LYING DOWN IN BED. NO DISTRESS NOTED. FLACC 0. AAOX1, CALM, COOPERATIVE, LETHARGIC AT THIS TIME. RESPIRATIONS EVEN, UNLABORED, ON O2 2L/MIN VIA NC. SKIN COLOR APPROPRIATE TO ETHNICITY, WARM TO TOUCH. HAS LEFT UPPER CHEST HD CATHETER, DRESSING DRY AND INTACT. IV SITE INTACT, PATENT, AND ON SALINE LOCK. REVIEWED PLAN OF CARE WITH PATIENT. REINFORCEMENT NEEDED. SAFETY MEASURES IN PLACE, CALL LIGHT WITHIN REACH. WILL CONTINUE TO MONITOR.
[2019-10-08 08:00] VITALS: BP 137/74
[2019-10-08] MEDS: LOSARTAN 50 MG TAB PO SCH (09:07)
[2019-10-08] MEDS: CALCIUM ACETATE 667 MG TAB PO SCH (09:07)
[2019-10-08] MEDS: hydrALAZINE 25 MG TAB PO SCH ×5 (09:07→21:00)
[2019-10-08] MEDS: SEVELAMER CARBONATE 800 MG TAB PO SCH ×4 (09:16→17:43)
[2019-10-08 09:27] LABS: LYMPHOCYTES % (MANUAL) 5 % (20-46); MONOCYTES % (MANUAL) 8 % (5-12)
--- NOTE | 2019-10-08 09:38 | NUR ---
PATIENT HAS BEEN SCREENED AND CATEGORIZED MODERATE NUTRITION RISK. PATIENT WILL BE SEEN WITHIN 3-5 DAYS OF ADMISSION. 10/10/19 10/12/[address]
--- NOTE | 2019-10-08 09:46 | NUR ---
SOLID PROPELLANT PROCESSOR NOTE: Patient's Orientation Unable To Assess Information Provided By MILO HARTLEY Comments SW WAS UNABLE TO MEET PATIENT AT BEDSIDE DUE TO MEDICAL CONDITION. PER MILO, PATIENT IS NOT ALERT/ORIENTED. White Lead Filterer, Realtionship and Phone Number JONES AVILEZDAVIVEK [phone] Healthcare Power of Executive Relations Specialist No Does Patient Have a POLST No Identifying Problems No Social Work Triggers Is A Social Work Consult Needed No Mandate Report Filed No Explanation Of Identifying Problems PATIENT IS A 64-YEAR-OLD FEMALE ADMITTED FOR PNEUMONIA, COVID 19, AND SEPSIS. PATIENT HAS PMHX OF ESRD, HTN, DEMENTIA, SCHIZOAFFECTIVE DISORDER, AND HYPERLIPEDEMIA. Admitted From Group Home Facility Group Home Facility [facility] [phone] Pre-Admission Level Of Functioning Status Total Care Prior Resources/Services Used In Last 12 Months SNF [facility] Care Prior [facility] Hospital Bed Walker Wheelchair Dialysis Hemodialysis Name And Phone Number of Dialysis Facility [facility] [phone] ESRD Outpatient Days T TH SAT Patient Had Caregiver Yes Home Support No Caregiver Issues Financial Issues No Known Financial Issue Factors/Needs SNF/NH Placement Explanation And Or Other Factors Affecting/Possible DC Needs PATIENT IS JAIL AND ON A BED HOLD. Discharge Plan Comments TENTATIVE DISCHARGE PLAN IS FOR PATIENT TO RETURN TO [facility]. DC Plan Status Initiated
[2019-10-08] MEDS ORDERED: DEXAMETHASONE 10 MG/ML VIAL IVP SCH (10:36)
[2019-10-08] MEDS ORDERED: AZITHROMYCIN 250 MG TAB PO SCH (11:00)
--- NOTE | 2019-10-08 11:45 | NUR ---
SCHEDULED MEDICATIONS DUE GIVEN. WILL CONTINUE TO MONITOR.
[2019-10-08 12:00] VITALS: BP 139/70
--- NOTE | 2019-10-08 12:21 | NUR ---
PATIENT LETHARGIC, RESPONDS TO SHAKING HOWEVER GOES BACK TO SLEEP. ABLE TO GIVE A FEW BITES OF CRUSHED MEDS WITH APPLE SAUCE, BUT UNABLE, TO TAKE ALL. DO NOT WANT PATIENT TO ASPIRATE AT THIS TIME. WILL CONTINUE TO MONITOR.
--- NOTE | 2019-10-08 12:39 | NUR ---
DISCHARGE PLANNING: THIS IS A 64 Y/O MALE PATIENT FROM [facility] DUE TO ALTERED MENTAL STATUS. PAST MEDICAL HISTORY INCLUDE ESRD, DEMENTIA, SCHIZOAFFECTIVE DISORDER, HTN AND HYPERLIPIDEMIA. INITIAL DIAGNOSIS OF PNEUMONIA, COVID 19 AND SEPSIS. CURRENT LABS INCLUDE WBC 19.4, H/H 13.2/40.7, NA/K 134/3.9, BUN/CREA 36/10.0, CRP 23.2, D DIMER 2200. COVID POSITIVE FROM [facility]. COVID TEST IN PROCESS. URINE AND BLOOD CS PENDING. ON DECADRON, AZITHROMYCIN. ON 3 LPM/NC, O2 SAT 99%. ID, NEPHRO AND PULMO CONSULTS IN PLACE. DC PLAN BACK TO [facility] ONCE STABLE. Addendum: 10/09/19 at 1322 by Lora Mcnally SEEN BY NEPHRO - NO EMERGENT INDICATIONS FOR DIALYSIS. [facility] [phone], ABLE TO SPEAK TO MILO. SHE STATED PATIENT GOES TO [facility] T--SAT AT 12PM. TRANSPORT IS WITH [facility]. CONTACTED [facility] AT [phone] ABLE TO SPEAK TO HREB. SHE STATED THIS IS [facility] [phone] PATIENT. CONTACTED [facility], ABLE TO SPEAK TO MARIA ALEJANDRA, SHE STATED THIS IS [facility]'S [phone] PATIENT. REACHED OUT TO [facility], ABLE TO SPEAK TO BALTA. HE CONFIRMED THAT PATIENT GOES THEIR T-TH-SAT AT 1345. HE ALSO STATED THAT THEY ARE NOT AWARE THAT THE PATIENT IS IN THE HOSPITAL. INFORMED HIM THAT ONCE WE HAVE DC ORDER, WE WILL INFORM THEM TO CONTINUE THE TREATMENT. Addendum: 10/12/19 at 1022 by Lora Mcnally CM RECEIVED AN ORDER TO DC BACK TO [facility] FOR CONTINUED DECADRON AND ANTICOAGULATION. CLINICALS SENT TO [facility]. CONTACTED PATIENT'S GRAND DAUGHTER JONES SMALL AT [phone] REGARDING DC PLAN. SHE STATED "I AM CONFUSED BECAUSE YESTERDAY, I GOT A CALL FROM DR. ALONSO STATING THAT THE PATIENT IS CRITICAL AND TODAY YOU ARE SAYING PATIENT WILL BE DC. WHAT'S GOING ON." I TOLD HER THAT THE PATIENT'S BLOOD PRESSURE WAS LOW YESTERDAY AND PATIENT BECAME ALTERED, HOWEVER THE BP NOW IS STABLE. I ALSO INFORMED HER THAT I WILL HAVE THE DOCTOR CALL HER FOR UPDATE. DR. WARE MADE AWARE. Addendum: 10/12/19 at 1140 by Lora Mcnally CM PER DREW NULL [facility], PATIENT WILL GO TO [facility] UNDER DR. ARMANDO. PER MOLINA OF [facility] TRANSPORT AUTH IS [id number]. PER SAMANTHA NULL [facility], RETIREMENT OFFICER WILL BE AT 1330. PRIMARY RN, CHARGE NURSE AND PATIENT'S GRAND DAUGHTER JONES MADE AWARE. Addendum: 10/13/19 at 0348 by Lora Mcnally CM CONTACTED PASHA BAEZA AT [phone], ABLE TO SPEAK TO VIRGIE. INFORMED HIM THAT THE PATIENT DISCHARGED ON SUNDAY. HE REQUESTED TO FAX OVER DISCHARGE SUMMARY TO [phone]. DC SUMMARY SENT OVER TO THE PROVIDED NUMBER.
--- NOTE | 2019-10-08 13:00 | NUR ---
ASSISTED MATHEMATICAL PHYSICIST IN CLEANING AND REPOSITIONING PATIENT. WILL CONTINUE TO MONITOR.
[2019-10-08 16:00] VITALS: BP 121/78
--- NOTE | 2019-10-08 17:50 | NUR ---
PATIENT SITTING IN BED. NO DISTRESS NOTED. REMOVED O2 VIA NC. REFUSED 1700 HYDRALAZINE AND SEVELEMIR MEDICATIONS EVEN, WHEN CRUSHED WITH APPLE SAUCE. WASTED HYDRALAZINE AND SEVELEMIR AT THIS TIME. WILL CONTINUE TO MONITOR.
--- NOTE | 2019-10-08 19:08 | NUR ---
GAVE REPORT TO PAY STATION ATTENDANT NURSE FOR CONTINUITY OF CARE. PATIENT IN STABLE CONDITION.
--- NOTE | 2019-10-08 19:20 | NUR ---
RECEIVED BEDSIDE REPORT FROM DAY SHIFT NURSE. PT IS AWAKE AND ALERT, LAYING IN SEMI FOWLERS POSITION IN BED. PT IS A&O X 1. PT IS ON RA AND BREATHING IS EVEN AND UNLABORED. SKIN IS WARM, DRY, AND INTACT. PT TESTED POSITIVE FOR COVID 19 ON 09/28/19. SAFETY PRECAUTIONS AND DROPLET PRECAUTIONS ARE IN PLACE. IV IS IN THE RIGHT UPPER ARM 18 GAUGE AND THERE IS A HD CATH IN THE LEFT CHEST FOR DIALYSIS. BED IS IN THE LOWEST POSITION AND CALL LIGHT IS WITHIN REACH. WILL CONTINUE WITH CURRENT POC.
[2019-10-08 20:00] VITALS: BP 128/66
--- NOTE | 2019-10-08 21:00 | NUR ---
MRSA SWAB DONE NOW THE LAB SAID THAT THEY HAVE RECEIVED THE MRSA SWAB EARLIER
--- NOTE | 2019-10-08 21:30 | NUR ---
PT IS AWAKE AND ALERT WATCHING TV IN HER BED. PT IS STABLE AT THIS TIME. NO SIGNS OF DISTRESS. PT REFUSED MEDICATIONS TWICE. WILL CONTACT DOCTOR TO LET THEM KNOW SHE IS REFUSING MEDS.
--- NOTE | 2019-10-08 23:40 | NUR ---
PT IS ASLEEP AND CALM. PT IS ON RA AND CHEST RISE IS SYMMETRICAL. IV IS INTACT AND NO SIGNS OF INFECTION. WILL CONTINUE TO MONITOR.
[2019-10-09] VITALS: BP 156/72
--- NOTE | 2019-10-09 02:00 | NUR ---
PT IS AWAKE AND WATCHING TV IN BED. PT IS A&O X 1. NO SIGNS OF DISTRESS NOTED. PT DENIES ANY PAIN. WILL CONTINUE TO MONITOR.
[2019-10-09 04:00] VITALS: BP 155/79
--- NOTE | 2019-10-09 04:30 | NUR ---
PT HAD A BOWEL MOVEMENT AND LINENS WERE CHANGED. PT IS NOW RESTING AND CALM. CHEST RISE IS SYMMETRICAL. SHE IS ON RA AND BREATHING IS UNLABORED. WILL CONTINUE TO MONITOR.
--- NOTE | 2019-10-09 06:00 | NUR ---
INFORMED DR. CHILDERS ABOUT THE BP READING OF 155/64 VIA TELEPHONE. DOCTOR STATED SHE WOULD ADD A PRN IV MEDICATION TO ADMINISTER. WILL CONTINUE TO MONITOR AND ADMINISTER WHEN ORDER IS PROCESSED.
[2019-10-09 06:15] LABS: BASOPHILS % (AUTO) 0.1 % (0.0-2.0); HEMATOCRIT 39.9 % (36-48); HEMOGLOBIN 12.9 g/dL (12.0-16.0); LYMPHOCYTES # (AUTO) 0.6 K/uL (2.5-16.5); LYMPHOCYTES % (AUTO) 3.7 % (20.5-51.1); MEAN CORPUSCULAR HEMOGLOBIN 30 pg (27-31); MEAN CORPUSCULAR HGB CONC 32 g/dL (33-37); MEAN CORPUSCULAR VOLUME 93.7 fL (80-94); MONOCYTES # (AUTO) 0.8 K/uL (0.8-1.0); MONOCYTES % (AUTO) 4.7 % (1.7-9.3); NEUTROPHILS # (AUTO) 14.7 K/uL (1.8-7.7); NEUTROPHILS % (AUTO) 91.5 % (42.2-75.2); PLATELET COUNT (AUTO) 152 K/uL (140-450); RED BLOOD CELL COUNT(AUTO) 4.26 MIL/uL (4.20-5.40); RED CELL DISTRIBUTION WIDTH 17.3 % (11.6-13.7); WHITE BLOOD COUNT (AUTO) 16.1 K/uL (4.8-10.8)
--- NOTE | 2019-10-09 06:45 | NUR ---
PT'S BP WAS RECHECKED AND BP READING WAS 161/ 72 AND PULSE RATE WAS 69. PT WAS GIVEN HYDRALYZINE PRN IV 10 MG. PT EDUCATION WAS GIVEN AND UNDERSTANDING WAS VERBALIZED. WILL CONTINUE TO MONITOR BP.
[2019-10-09] MEDS: hydrALAZINE 20 MG/ML VIAL IVP PRN (06:46)
[2019-10-09 07:05] LABS: ANION GAP 21.7 (8-16); CARBON DIOXIDE 25.5 mmol/L (21-32); PHOSPHORUS 6.7 mg/dL (2.5-4.9); POTASSIUM 4.2 mmol/L (3.5-5.1); TOTAL BILIRUBIN 0.9 mg/dL (0.0-1.0)
--- NOTE | 2019-10-09 07:07 | NUR ---
PT AWAKE, O X 3 , LAO SPEAKING. FOR BP RE-ASESSMENT AT 0746. WILL ENDORSE TO NEXT SHIFT FOR CONTINUITY OF CARE.
[2019-10-09 08:00] VITALS: BP 149/67
--- NOTE | 2019-10-09 08:00 | NUR ---
Received verbal consent via phone from Tabby Scott for hemodialysis today with 2-nurse verification with Mildred Peacock RN.
--- NOTE | 2019-10-09 08:01 | NUR ---
RECEIVED REPORT FROM PM RN. PT IS RESTING IN BED. NO SIGNS OF DISTRESS. PT HAS IV IN RT UPPER ARM 18G. BED IN LOWEST POSITION. CALL LIGHT WITHIN REACH. WILL CONTINUE TO MONITOR.
--- NOTE | 2019-10-09 08:05 | NUR ---
Spoke to Alma from [facility] on the phone and notified of hemodialysis order from Dr. Wilkes.
--- NOTE | 2019-10-09 08:30 | NUR ---
Obtained verbal consent for FFP transfusion from Tabby Scott (grand daughter) with 2-nurse verification with Amy Jacob RN.
[2019-10-09] MEDS: AZITHROMYCIN 250 MG TAB PO SCH (08:44)
[2019-10-09] MEDS: SEVELAMER CARBONATE 800 MG TAB PO SCH ×3 (08:44→17:00)
[2019-10-09 08:45] LABS: CREATININE 12.1 mg/dL (0.6-1.3)
[2019-10-09] MEDS: CALCIUM ACETATE 667 MG TAB PO SCH ×2 (08:45→17:00)
[2019-10-09] MEDS: DEXAMETHASONE 10 MG/ML VIAL IVP SCH (08:48)
[2019-10-09] MEDS: hydrALAZINE 25 MG TAB PO SCH ×5 (09:00→21:54)
[2019-10-09] MEDS: LOSARTAN 50 MG TAB PO SCH (09:00)
[2019-10-09 12:00] VITALS: BP 145/68
--- NOTE | 2019-10-09 12:00 | NUR ---
PT IS STRICTLY KAZAKH SPEAKING. PT IS CONFUSED. PT ATTEMPTED TO GET OUT OF BED. WAS ABLE TO HELP PT REST IN BED. PT WAS AGITATED. ABLE TO CALM PT DOWN. WILL CONTINUE TO MONITOR.
--- NOTE | 2019-10-09 14:00 | NUR ---
Bilateral wrist restraints applied d/t patient behavior of getting out of bed and pulling on IV lines. Pt yelling. Will cont to monitor. Addendum: 10/09/19 at 1651 by Flori Krishnamurthy RN Addendum: Alma dialysis nurse at bedside to initiate hemodialysis. Pt resting quietly in bed, bilateral wrist restraints in place. No signs of distress.
[2019-10-09 16:00] VITALS: BP 130/71
--- NOTE | 2019-10-09 17:30 | NUR ---
Per Alma, dialysis nurse, hemodialysis tx is completed with 2L out. Pt resting quietly in bed, bilateral wrist restraints in place, no signs of distress. Will cont to monitor.
--- NOTE | 2019-10-09 19:30 | NUR ---
RECEIVED ENDORSEMENT FROM AM SHIFT RN. PATIENT IS LYING IN BED. NO SOB. WITH BILATERAL SOFT WRIST RESTRAIN NOTED. NO PAIN NOTED. LEFT CHEST CÉSAR CATH FOR DIALYSIS ACCESS Q E, , SAT. DIALYSIS DONE IN AM SHIFT WITH 2 LITERS OUT PER ENDORSEMENT. FABIANO 18G, INTACT. ON ROOM AIR. TELE MONITOR ATTACHED. DROPLET ISOLATION OBSERVED. FALL RISK PROTOCOL IN PLACE. PLAN OF CARE WAS DISCUSSED. CALL LIGHT WITHIN REACH. WILL CONTINUE TO MONITOR.
--- NOTE | 2019-10-09 19:30 | NUR ---
Report given to pm nurse Karen. Pt with bilateral wrist restraints in place.
[2019-10-09 20:00] VITALS: BP 110/59
--- NOTE | 2019-10-09 21:35 | NUR ---
PT RESTING COMFORTABLY IN NO APPARENT DISTRESS SPO2 95% f16 HR 72 2LNC
--- NOTE | 2019-10-09 21:53 | NUR ---
HEPARIN SQ GIVEN ORDERED. HYDRALAZINE 50MG NOT GIVEN DUE TO PATIENT REFUSED TO TAKE MED. PATIENT BP IS 110/59 HR 68.
[2019-10-10] VITALS: BP 145/77
--- NOTE | 2019-10-10 | NUR ---
PATIENT IS SLEEPING. NO SOB.
--- NOTE | 2019-10-10 02:15 | NUR ---
PATIENT RESPIRATION EVEN AND UNLABORED. NO SOB. CALL LIGHT WITHIN REACH. WILL CONTINUE TO MONITOR.
[2019-10-10 04:00] VITALS: BP 156/77
--- NOTE | 2019-10-10 04:30 | NUR ---
CALLED RESIDENT THAT SHE NEEDS TO EXPLAIN THE CONSENT FOR CONVALESCENT PLASMA. SHE SAID SHE WILL BE HERE IN AN HOUR.
--- NOTE | 2019-10-10 05:40 | NUR ---
CONSENT TAKEN VIA TELEPHONE FROM JONES SMALL, GRAND DAUGHTER OF PATIENT, SHE AGREES TO GIVE CONVALESCENT PLASMA TO PATIENT. CONSENT WITNESSED BY CHARGE NURSE DAVONTE PERRY.
--- NOTE | 2019-10-10 06:00 | NUR ---
WENT TO THE LAB TO TAKE THE CONVALESCENT PLASMA. LAB PERSONNEL SAID THEY WILL CALL ONCE THE CONVALESCENT PLASMA WAS THAWED.
[2019-10-10 06:42] LABS: BASOPHILS % (AUTO) 0.2 % (0.0-2.0); HEMATOCRIT 40.2 % (36-48); HEMOGLOBIN 13.2 g/dL (12.0-16.0); LYMPHOCYTES # (AUTO) 0.6 K/uL (2.5-16.5); LYMPHOCYTES % (AUTO) 3.4 % (20.5-51.1); MEAN CORPUSCULAR HEMOGLOBIN 30 pg (27-31); MEAN CORPUSCULAR HGB CONC 33 g/dL (33-37); MEAN CORPUSCULAR VOLUME 92.6 fL (80-94); NEUTROPHILS # (AUTO) 15.3 K/uL (1.8-7.7); NEUTROPHILS % (AUTO) 90.4 % (42.2-75.2); PLATELET COUNT (AUTO) 192 K/uL (140-450); RED BLOOD CELL COUNT(AUTO) 4.34 MIL/uL (4.20-5.40)
--- NOTE | 2019-10-10 06:57 | NUR ---
PATIENT IS NOT IN ANY DISTRESS. NO SOB. WILL ENDORSE TO AM SHIFT RN FOR CONTINUITY OF CARE.
[2019-10-10 07:06] LABS: ANION GAP 17.5 (8-16); CARBON DIOXIDE 26.1 mmol/L (21-32); MAGNESIUM 1.9 mg/dL (1.8-2.4); PHOSPHORUS 4.5 mg/dL (2.5-4.9); POTASSIUM 3.6 mmol/L (3.5-5.1); TOTAL BILIRUBIN 0.8 mg/dL (0.0-1.0)
--- NOTE | 2019-10-10 07:30 | NUR ---
RECEIVED REPORT FROM NIGHT NURSE. PATIENT IN BED ASLEEP, RESPIRATIONS EVEN AND UNLABORED. WITH BILATERAL SOFT WRIST RESTRAIN NOTED. LEFT CHEST CÉSAR CATH FOR DIALYSIS ACCESS Q TUE, THURS, SAT. FABIANO 18G, INTACT. ON ROOM AIR. TELE MONITOR ATTACHED. DROPLET ISOLATION OBSERVED. FALL RISK PROTOCOL IN PLACE. PLAN OF CARE WAS DISCUSSED. CALL LIGHT WITHIN REACH. BED IN LOW POSITION.
[2019-10-10 08:00] VITALS: BP 150/69
[2019-10-10] MEDS: CALCIUM ACETATE 667 MG TAB PO SCH ×4 (08:00→17:00)
[2019-10-10] MEDS: SEVELAMER CARBONATE 800 MG TAB PO SCH ×4 (08:00→17:00)
[2019-10-10 08:24] LABS: CREATININE 8.3 mg/dL (0.6-1.3)
[2019-10-10] MEDS: DEXAMETHASONE 10 MG/ML VIAL IVP SCH (09:56)
[2019-10-10] MEDS: LOSARTAN 50 MG TAB PO SCH (09:57)
[2019-10-10] MEDS: hydrALAZINE 25 MG TAB PO SCH ×4 (09:57→21:19)
[2019-10-10] MEDS: AZITHROMYCIN 250 MG TAB PO SCH (09:58)
--- NOTE | 2019-10-10 10:00 | NUR ---
PATIENT ABLE TO WAKE BY NAME OR TACTILE STIMULI. PATIENT ALERT, ORIENTED X1. AM MEDICATIONS GIVEN. PATIENT REFUSED PHOSLO AND RENVELA. PATIENT REMAINS ON BUE SOFT RESTRAINTS FOR SAFETY MEASURES. WILL CONTINUE TO MONITOR.
[2019-10-10] MEDS ORDERED: ALBUTEROL HFA MDI 90 MCG/ACTUATION 8 GM INH PRN (10:15)
[2019-10-10 12:00] VITALS: BP 131/75
--- NOTE | 2019-10-10 13:20 | NUR ---
PATIENT REMAINS STABLE. BUE SOFT RESTRAINTS IN PLACE FOR SAFETY MEASURES. NO S/S OF DISTRESS NOTED. O2 ON 2 @2L NC. CALL LIGHT WITHIN REACH.
--- NOTE | 2019-10-10 14:00 | NUR ---
DR. BARRAGAN TO RENEW BUE SOFT RESTRAINTS.
--- NOTE | 2019-10-10 15:00 | NUR ---
PATIENT REMAINS STABLE. O2 ON @ 2L VIA NC. NO S/S OF DISTRESS NOTED.
[2019-10-10 16:00] VITALS: BP 140/71
--- NOTE | 2019-10-10 18:00 | NUR ---
PATIENT REFUSED DINNER. REFUSED RENVELA AND PHOSLO. PATIENT AOX1. PATIENT REMAINS ON BUE SOFT WRIST RESTRAINTS. NO S/S OF DISTRESS NOTED.
--- NOTE | 2019-10-10 19:28 | NUR ---
PATIENT IN STABLE CONDITION. REPORT GIVEN TO NIGHT NURSE.
--- NOTE | 2019-10-10 19:29 | NUR ---
RECEIVED REPORT FROM DAY SHIFT NURSE, FOR CONTINUITY OF CARE. PT IS A&OX1; ECUADOREAN SPEAKING. COVID +. RESPIRATIONS ARE EVEN AND UNLABORED, BREATHING TO 2L NC. SKIN COLOR APPROPRIATE FOR ETHNICITY. FABIANO 18G IV IS PATENT AND INTACT, SALINE LOCK. BILATERAL SOFT WRIST RESTRAINTS IN PLACE, NO S/SX OF INJURY. L UPPER CHEST DIALYSIS ACCESS. PT IS SCHEDULED FOR DIALYSIS TOMORROW. NO ACUTE DISTRESS NOTED. DROPLET PRECAUTIONS IN PLACE. FALL PRECAUTIONS IN PLACE; BED ALARM ON, SIGNS POSTED. SAFETY MEASURES IN PLACE; CALL LIGHT WITHIN REACH, BED IN LOW POSITION. TELE MONITOR ATTACHED. WILL CONTINUE TO MONITOR.
[2019-10-10 20:00] VITALS: BP 133/99
[2019-10-10] MEDS ORDERED: ENOXAPARIN 60 MG/0.6 ML SYR SUBQ SCH (21:00)
--- NOTE | 2019-10-10 21:26 | NUR ---
ORDERED HEPARIN GIVEN. UNABLE TO ADMINISTER PO HYDRALAZINE, PT REFUSED MED. PT IS AGITATED AND SCREAMING. ATTEMPTED TO FEED PT, AND PT REFUSED FOOD. RESIDENT DR AWARE. PER RESIDENT , PO HYDRALAZINE CAN BE HELD, AND IVP HYDRALAZINE GIVEN FOR SYSTOLIC BP OVER 160. SAFETY MEASURES IN PLACE. WILL CONTINUE TO MONITOR.
[2019-10-11] VITALS: BP 157/87
--- NOTE | 2019-10-11 00:59 | NUR ---
PT SEEN. PT IS ON RA. NO DISTRESS NOTED. WILL CONT TO MONITOR
--- NOTE | 2019-10-11 02:46 | NUR ---
ASSISTED SUPERVISOR AREA TO CLEAN PT. PT IS STILL AGITATED, TRYING TO BITE AND KICK. VITAL SIGNS STABLE. SOFT WRIST RESTRAINTS REMOVED, AND REAPPLIED; NO SIGNS OR SYMPTOMS OF INJURY. SAFETY MEASURES IN PLACE. TELE MONITOR ATTACHED. WILL CONTINUE TO MONITOR.
[2019-10-11 04:00] VITALS: BP 153/79
--- NOTE | 2019-10-11 07:27 | NUR ---
ENDORSED TO DAYSHIFT NURSE, FOR CONTINUITY OF CARE. PT IS IN STABLE CONDITION.
--- NOTE | 2019-10-11 07:30 | NUR ---
RECEIVED PT FROM TEXTILE MACHINE OPERATOR NURSECLEM, PT IS AWAKE NAD LYING ON THE BED, IRRITABLE, IV LINE ON THE RT UA G. 22 ON SALINE LOCK, LEFT UPPER CHEST CÉSAR CATHETER FOR DIALYSIS ACCESS IN PLACE, ON ROOM AIR, O2 SATURATION IS AT 98%, NO SIGN OF DISTRESS NOTED AND WILL MONITOR PT.
[2019-10-11 08:00] VITALS: BP 168/80
[2019-10-11] MEDS: CALCIUM ACETATE 667 MG TAB PO SCH ×3 (08:00→17:00)
[2019-10-11] MEDS: SEVELAMER CARBONATE 800 MG TAB PO SCH ×3 (08:00→17:00)
--- NOTE | 2019-10-11 08:10 | NUR ---
DIALYSIS WAS STARTED NOW.
[2019-10-11 08:30] LABS: HEMOGLOBIN 13.4 g/dL (12.0-16.0); MEAN CORPUSCULAR HEMOGLOBIN 31 pg (27-31); MEAN CORPUSCULAR HGB CONC 33 g/dL (33-37); PLATELET COUNT (AUTO) 210 K/uL (140-450); RED BLOOD CELL COUNT(AUTO) 4.37 MIL/uL (4.20-5.40); RED CELL DISTRIBUTION WIDTH 16.9 % (11.6-13.7); WHITE BLOOD COUNT (AUTO) 8.6 K/uL (4.8-10.8)
[2019-10-11 08:59] LABS: LYMPHOCYTES % (MANUAL) 15 % (20-46); MONOCYTES % (MANUAL) 13 % (5-12)
[2019-10-11] MEDS: ASCORBIC ACID 500 MG TAB PO SCH (09:00)
[2019-10-11] MEDS: ZINC SULF 220 MG CAP PO SCH (09:00)
[2019-10-11] MEDS: hydrALAZINE 25 MG TAB PO SCH ×4 (09:00→21:00)
[2019-10-11] MEDS: VITAMIN D 400 IU TAB PO SCH (09:00)
[2019-10-11] MEDS: LOSARTAN 50 MG TAB PO SCH (09:00)
[2019-10-11] MEDS: AZITHROMYCIN 250 MG TAB PO SCH (09:00)
[2019-10-11 09:10] LABS: ALBUMIN 2.8 g/dL (3.4-5.0); ANION GAP 20.2 (8-16); CARBON DIOXIDE 25.5 mmol/L (21-32); MAGNESIUM 2.1 mg/dL (1.8-2.4); PHOSPHORUS 3.7 mg/dL (2.5-4.9); POTASSIUM 3.7 mmol/L (3.5-5.1); TOTAL BILIRUBIN 0.6 mg/dL (0.0-1.0)
--- NOTE | 2019-10-11 09:42 | NUR ---
DIALYSIS WAS STOPPED DUE TO PT'S BP IS 87/55, PULSE IS 68, INFORMED DR. ALONSO AND MADE AN ORDER TO GIVE A 500ML BOLUS TO THE PT, .
[2019-10-11] MEDS ORDERED: NACL 0.9% 500 ML IV SCH (10:00)
[2019-10-11 10:07] LABS: CREATININE 9.3 mg/dL (0.6-1.3)
[2019-10-11] MEDS ORDERED: FLUCONAZOLE 200 MG/NS PREMIX 100 ML IV SCH (10:15)
--- NOTE | 2019-10-11 10:15 | NUR ---
(10/11/19) RD INITIAL ASSESSMENT COMPLETED PLEASE REFER TO NUTRITION ASSESSMENT UNDER CARE ACTIVITY FOR ESTIMATED NUTRITIONAL NEEDS. RD RECOMMENDATIONS: 1. CONTINUE RENAL DIET TOLERATED. 2. CONTINUE NEPRO 1 BOTTLE WITH EACH MEAL TID TOLERATED. 3. FNS AND NURSING TO HELP ENCOURAGE INCREASED PO INTAKES. 4. RD WILL F/U 3-5 DAYS; MODERATE RISK. 5. RENAL DIET EDUCATION IS NOT APPROPRIATE DUE TO PTS CONFUSION. JATINDER DUFFY, MS, RDN
--- NOTE | 2019-10-11 10:15 | NUR ---
PT REFUSED TO TAKE ANY ORAL MEDICATIONS, INFORMED DR. ALONSO OF PT'S REFUSAL AND MD SAID TO HOLD IT OFF AND DOCUMENT.
[2019-10-11] MEDS: DEXAMETHASONE 10 MG/ML VIAL IVP SCH (10:45)
[2019-10-11 12:00] VITALS: BP 158/75
[2019-10-11] MEDS ORDERED: CRUSHER, PILL MC ONE (14:22)
--- NOTE | 2019-10-11 14:55 | NUR ---
PT REFUSED TO TAKE THE SCHEDULED BP MEDICATION, BP IS 1`58/85, PULSE IS 67. WILL MONITOR PT.
[2019-10-11 16:00] VITALS: BP 156/81
--- NOTE | 2019-10-11 17:43 | NUR ---
PT IS AWAKE AND REFUSED TO TAKE HER SCHEDULED AFTERNOON MEDICATIONS AND THEN WENT BACK TO SLEEP, BP IS 156/81, PULSE IS 93 AND O2 SATURATION IS AT 100% ON RROM AIR.
--- NOTE | 2019-10-11 17:45 | NUR ---
DR. WAYNE WAS INFORMED THAT PT REFUSED TO TAKE HER ORAL MEDICATIONS.
--- NOTE | 2019-10-11 19:15 | NUR ---
ENDORSED PT TO FOUNDRY PATTERNMAKER NURSE, ISAURA, FOR CONTINUITY OF CARE.
--- NOTE | 2019-10-11 19:30 | NUR ---
RECEIVED BEDSIDE REPORT FROM AM SHIFT RN FOR PT'S CONTINUITY OF CARE. PT TAKEN TO CT FOR CT SCAN OF HEAD. PT ON RESTRAINTS, NO SIGNS OF DISTRESS OR INJURY AT SOFTWRIST RESTRAINT AREA.
[2019-10-11 20:00] VITALS: BP 167/72
--- NOTE | 2019-10-11 21:00 | NUR ---
ADMINISTERED SCHEDULED MEDICATION ORDERED. OFFERED PT FOOD, PT REFUSED, OFFERED PO MEDICATION WITH ENSURE, PT REFUSED. REASSESSED SOFT WRIST RESTRAINTS, NO SIGNS OF INJURY. PT GRABBED AND ATTEMPTED TO SCRATCH RN'S HAND WHEN TRYING TO ADMINISTER MEDICATION. REORIENTED PT AND MADE PT CALM. PT COMPLIED.
--- NOTE | 2019-10-11 21:00 | NUR ---
HYDRALAZINE PO NOT ADMIN, PT REFUSING PO MEDS. WILL GIVE HYDRALAZINE IVP PRN FOR BP CONTROL.
--- NOTE | 2019-10-11 22:00 | NUR ---
UNABLE TO GIVE HYDRALAZINE IVP, NO IV SITE, PREVIOUS IV SITE INFILTRATED. WILL START NEW IV.
[2019-10-12] VITALS: BP 111/68
--- NOTE | 2019-10-12 | NUR ---
PT ASLEEP WITH NO SIGNS OF DISTRESS. WILL CONTINUE TO MONITOR PT.
--- NOTE | 2019-10-12 02:00 | NUR ---
PT ASLEEP WITH NO SIGNS OF DISTRESS. WILL CONTINUE TO MONITOR PT.
[2019-10-12 04:00] VITALS: BP 159/83
--- NOTE | 2019-10-12 04:00 | NUR ---
PT CHANGED AND MADE COMFORTABLE. NO SIGNS OF DISTRESS OR DISCOMFORT. PT BLOOD PRESSURE ELEVATED DT ACTIVITY. NO SIGNS OF SOFT WRIST RESTRAINTS INJURY. PT CONTINUE TO GET AGITATED AND ATTEMPTS TO SWING ARM/SCRATCH STAFF.
--- NOTE | 2019-10-12 06:20 | NUR ---
PT ASLEEP WITH NO SIGNS OF DISTRESS OR DISCOMFORT. WILL ENDORSE TO AM SHIFT RN FOR PT'S CONTINUITY OF CARE.
--- NOTE | 2019-10-12 07:26 | NUR ---
SHIFT REPORT RECEIVED FROM FIREBRICK LAYER NURSE. PT IS RESTING IN BED. NO AGITATION NOTED. RESTRAINTS IN PLACE. WILL CONTINUE TO MONITOR. CALL LIGHT IN REACH.
[2019-10-12 08:00] VITALS: BP 164/72
[2019-10-12] MEDS: CALCIUM ACETATE 667 MG TAB PO SCH ×3 (08:00→12:00)
[2019-10-12] MEDS: SEVELAMER CARBONATE 800 MG TAB PO SCH ×3 (08:00→12:00)
[2019-10-12] MEDS: ZINC SULF 220 MG CAP PO SCH ×2 (08:19→09:00)
[2019-10-12] MEDS: VITAMIN D 400 IU TAB PO SCH ×2 (08:20→09:00)
[2019-10-12] MEDS: ASCORBIC ACID 500 MG TAB PO SCH ×2 (08:20→09:00)
[2019-10-12] MEDS: AZITHROMYCIN 250 MG TAB PO SCH (08:20)
[2019-10-12] MEDS: DEXAMETHASONE 10 MG/ML VIAL IVP SCH ×2 (08:21→09:50)
--- NOTE | 2019-10-12 08:45 | NUR ---
PT IS LYING IN BED. PT IS AWAKE. PT IS ON SOFT RESTRAINTS. SKIN INTACT. CIRCULATION GOOD. NO INJURY. PT IS AGITATED AND TRYING TO PULL OUT IV LINE. UNABLE TO DRAW AM LBS THIS MORNING. PT ALSO REFUSED MORNING PO MEDS AND BREAKFAST. SAFETY MEASURES IN PLACE WILL CONTINUE TO MONITOR. CALL LIGHT IN REACH.
[2019-10-12] MEDS: hydrALAZINE 25 MG TAB PO SCH ×2 (09:00→13:00)
[2019-10-12] MEDS: LOSARTAN 50 MG TAB PO SCH (09:00)
[2019-10-12] MEDS: hydrALAZINE 20 MG/ML VIAL IVP PRN (10:45)
--- NOTE | 2019-10-12 11:17 | NUR ---
PT IS LYING IN BED SLEEPING. NO DISTRESS NOTED. SAFETY MEASURES IN PLACE. WILL CONTINUE TO MONITOR. CALL LIGHT IN REACH.
[2019-10-12 12:00] VITALS: BP 131/67
--- NOTE | 2019-10-12 13:49 | NUR ---
PT WAS DISCHARGED TODAY TO [facility]. PT IV INTACT FOR IV MEDS. ID BAND REMOVED. PT'S BELONGINGS WITH PATIENT. SKIN INTACT. PT WAS CONFUSED AT DISCHARGE. PT WAS TAKEN IN A GURNEY BY TRANSPORT. BELONGINGS GIVEN TO TRANSPORT ALONG WITH ONE EARING. O2 SATS 99% HR 77. NO DISTRESS NOTED. PT'S FAM NOTED OF PT'S DISCHARGE. REPORT GIVEN TO DREW ARAUZ PT GOING TO ROOM [address] ARMANDO. DISCHARGE PACKET GIVEN TO PATIENT. PT IS UNABLE TO SIGN PAPERS DUE TO ALOC.
[2019-11-03] MEDS ORDERED: ASCO500T95 PO (11:18)
[2019-11-03] MEDS ORDERED: CHOL100013 PO (11:18)
[2019-11-03] MEDS ORDERED: AMLO10TA3 PO (11:18)
[2019-11-03] MEDS ORDERED: TICA90TA PO (11:18)
[2019-11-03] MEDS ORDERED: ZINC220C28 PO (11:18)
[2019-11-03] MEDS ORDERED: ACET-2619 PO (11:18)
[2019-11-03] MEDS ORDERED: ALBU2.5V IH (11:18)
[2019-11-03] MEDS ORDERED: QUET25TA46 PO (11:18)
[2019-11-03] MEDS ORDERED: PANT40EC PO (11:18)
== END 2019-10-12 13:50 | DRG 177 ==
LOC: EEVIPCON 19:53 → MED 19:53 → MTU 23:37 → MMU 23:38
PROVIDERS: ADMIT General Practice; ATTEND General Practice
PROC: 5A1D70Z Performance of Urinary Filtration, Intermittent, Less than 6 Hours Per Day (ICD-10-PCS; principal; 2019-10-09)
PROC: 5A1D70Z Performance of Urinary Filtration, Intermittent, Less than 6 Hours Per Day (ICD-10-PCS; 2019-10-11)
DX: U07.1 COVID-19 (principal); N17.0 Acute kidney failure with tubular necrosis; I50.43 Acute on chronic combined systolic (congestive) and diastolic (congestive) heart failure; E43 Unspecified severe protein-calorie malnutrition; N18.6 End stage renal disease; J12.89 Other viral pneumonia; J96.01 Acute respiratory failure with hypoxia; G93.41 Metabolic encephalopathy; E87.1 Hypo-osmolality and hyponatremia; I13.2 Hypertensive heart and chronic kidney disease with heart failure and with stage 5 chronic kidney disease, or end stage renal disease; E83.39 Other disorders of phosphorus metabolism; Z66 Do not resuscitate; E11.22 Type 2 diabetes mellitus with diabetic chronic kidney disease; E78.5 Hyperlipidemia, unspecified; E87.8 Other disorders of electrolyte and fluid balance, not elsewhere classified; F02.80 Dementia in other diseases classified elsewhere, unspecified severity, without behavioral disturbance, psychotic disturbance, mood disturbance, and anxiety; G30.9 Alzheimer's disease, unspecified; R79.82 Elevated C-reactive protein (CRP); F25.9 Schizoaffective disorder, unspecified; G90.9 Disorder of the autonomic nervous system, unspecified; Z68.23 Body mass index [BMI] 23.0-23.9, adult; Z99.2 Dependence on renal dialysis; Z79.899 Other long term (current) drug therapy; Z90.710 Acquired absence of both cervix and uterus; Z91.19 Patient's noncompliance with other medical treatment and regimen
CPT/HCPCS: 36415; 51702; 70450; 71045; 80048; 80053; 80305; 81001; 82550; 82728; 83036; 83605; 83615; 83735; 83880; 84100; 84443; 84484; 85025; 85379; 85651; 86140; 86886; 86900; 86901; 87040; 87081; 87086; 90935; 93005; 96365; 99291; G0480; G0482; J0360; J0692; J1100; J1450; J1644; J3370; J3535; J7030; Q0092; U0003-CS

== ENCOUNTER 2021-01-26 17:20 | Emergency (ER) | payer OTHER ==
[~2021-01-26 17:20] MED LIST changes: +ACET-2619 PO; +ALBU2.5V IH; +AMLO10TA88 PO; +ASCO500T95 PO; +CALC667C12 PO; +CHOL100013 PO; +FLUC100T PO; +PANT40EC PO; -PHO667 PO; +PIPE50SO5 IV; +QUET25TA46 PO; +TICA90TA PO; +ZINC220C28 PO; -ZOS2.25PM IV
--- NOTE | 2021-01-27 00:52 | NUR ---
ATTEMPT TO CALL [facility] FOR TRANSPORTATION TO FACILITY. NO ANSWER, ADEN MONTEZ
[2021-01-27 02:38] LABS: HEMATOCRIT 31.5 % (36-48); HEMOGLOBIN 10.6 g/dL (12.0-16.0); MEAN CORPUSCULAR HEMOGLOBIN 35 pg (27-31); MEAN CORPUSCULAR HGB CONC 34 g/dL (33-37); MEAN CORPUSCULAR VOLUME 104.3 fL (80-94); RED BLOOD CELL COUNT(AUTO) 3.02 MIL/uL (4.20-5.40); RED CELL DISTRIBUTION WIDTH 13.7 % (11.6-13.7); WHITE BLOOD COUNT (AUTO) 4.8 K/uL (4.8-10.8)
[2021-01-27 02:39] LABS: BASOPHILS % (AUTO) 0.3 % (0.0-2.0); EOSINOPHILS # (AUTO) 0.1 K/uL (0-0.4); EOSINOPHILS % (AUTO) 2.6 % (0.0-4.0); LYMPHOCYTES # (AUTO) 1.1 K/uL (2.5-16.5); MONOCYTES # (AUTO) 0.7 K/uL (0.8-1.0); MONOCYTES % (AUTO) 14.3 % (1.7-9.3); NEUTROPHILS # (AUTO) 2.8 K/uL (1.8-7.7); NEUTROPHILS % (AUTO) 58.8 % (42.2-75.2); PLATELET COUNT (AUTO) 154 K/uL (140-450)
[2021-01-27 02:40] LABS: ANION GAP 12.3 (8-16); CARBON DIOXIDE 31.1 mmol/L (21-32); POTASSIUM 4.4 mmol/L (3.5-5.1)
[2021-01-27 02:41] LABS: CREATININE 4.3 mg/dL (0.6-1.3)
--- NOTE | 2021-01-27 04:00 | NUR ---
RESTING IN BED WITH EYES CLOSED, RESPIRATIONS REGULAR AND UNLABORED
--- NOTE | 2021-01-27 07:31 | NUR ---
RECEIVED REPORT FROM AZIZA ARAUZ. ASSUMED CARE AT THIS TIME.
--- NOTE | 2021-01-27 07:45 | NUR ---
PATIENT APPEARS TO BE RESTING WITH EYES CLOSED, ALL NEEDS MET AT THIS TIME. WILL CONTINUE TO MONITOR.
--- NOTE | 2021-01-27 08:16 | NUR ---
GAVE REPORT TO ART AT [facility] FOR PATIENT RETURNING TO FACILITY.
--- NOTE | 2021-01-27 10:30 | NUR ---
SPOKE WITH CHARGE NURSE ART AT [facility], GAVE UPDATED ETA FOR PATIENT PICKUP 1200.
--- NOTE | 2021-01-27 11:52 | NUR ---
TRANSPORTATION BEDSIDE TO TRANSPORT PATIENT TO BACK TO [facility]
[2021-01-27 12:03] VITALS: BP 189/69
--- NOTE | 2021-01-27 12:03 | NUR ---
Patient discharged with v/s stable. Written and verbal after care instructions given and explained. Patient verbalized understanding. Ambulance Transport to care home. All questions addressed prior to discharge. Advised to follow up with PMD.
== END 2021-01-27 12:03 ==
LOC: MED 17:20
DX: S40.021A Contusion of right upper arm, initial encounter (principal); X58.XXXA Exposure to other specified factors, initial encounter; Y93.89 Activity, other specified; Y92.89 Other specified places as the place of occurrence of the external cause; Y99.8 Other external cause status
CPT/HCPCS: 36415; 80048; 85025; 93922; 93930; 99284

== ENCOUNTER 2021-06-14 21:26 | Inpatient (IN) | payer OTHER, SELFPAY ==
[~2021-06-14] VITALS: Ht 162.6 cm; Wt 54.0 kg
[2021-06-14 21:26] VITALS: BP 196/84
--- NOTE | 2021-06-14 21:34 | NUR ---
66 Y/O FEMALE BIBA, C/O COFFEE-GROUND EMESIS X2 EARLIER TODAY. PATIENT PRESENTS TO ED WITH APHASIA (NFP). SKIN IS PINK/WARM/DRY; AAOX0 AND IS NON AMBULATORY; HR EVEN AND REGULAR; NO FEVER, CP, SOB, OR COUGH REPORTED BY MEDIC/EMS; PATIENT DOES NOT APPEAR TO BE IN DISTRESS AT THIS TIME; VSS; PATIENT POSITIONED FOR COMFORT; HOB ELEVATED; BEDRAILS UP X2; BED DOWN. ER MD MADE AWARE OF PT STATUS. DIALSIS SHUNT ON RIGHT ARM. HX: CHF, CKD, ANX, DEMENTIA, ESRD, CVA, HLD, ANEURYSM, DIALYSIS, GERD, NSTEMI, ASTH,MA, SCHIZOPHRENIA NKDA
--- NOTE | 2021-06-14 21:34 | NUR ---
Pt NEREYDA via gurney to bed 10.
--- NOTE | 2021-06-14 22:13 | NUR ---
er md at bedside assessing pt
[2021-06-14] MEDS ORDERED: FAMOTIDINE 20 MG/2 ML VIAL IVP ONE (22:15)
--- NOTE | 2021-06-14 22:26 | NUR ---
LABS AT BEDSIDE
--- NOTE | 2021-06-14 22:30 | NUR ---
XRAY AT BEDSIDE
[2021-06-14 22:39] LABS: BASOPHILS % (AUTO) 0.4 % (0.0-2.0); EOSINOPHILS % (AUTO) 0.4 % (0.0-4.0); HEMATOCRIT 36.2 % (36-48); HEMOGLOBIN 12.4 g/dL (12.0-16.0); LYMPHOCYTES # (AUTO) 0.9 K/uL (2.5-16.5); LYMPHOCYTES % (AUTO) 19.2 % (20.5-51.1); MEAN CORPUSCULAR HEMOGLOBIN 35 pg (27-31); MEAN CORPUSCULAR HGB CONC 34 g/dL (33-37); MEAN CORPUSCULAR VOLUME 101.3 fL (80-94); MONOCYTES # (AUTO) 0.7 K/uL (0.8-1.0); MONOCYTES % (AUTO) 14.6 % (1.7-9.3); NEUTROPHILS # (AUTO) 3.2 K/uL (1.8-7.7); NEUTROPHILS % (AUTO) 65.4 % (42.2-75.2); PLATELET COUNT (AUTO) 177 K/uL (140-450); RED BLOOD CELL COUNT(AUTO) 3.57 MIL/uL (4.20-5.40); RED CELL DISTRIBUTION WIDTH 13.8 % (11.6-13.7); WHITE BLOOD COUNT (AUTO) 4.9 K/uL (4.8-10.8)
[2021-06-14 23:00] LABS: ALBUMIN 3.5 g/dL (3.4-5.0); ANION GAP 10.1 (8-16); CREATININE 3.1 mg/dL (0.6-1.3); POTASSIUM 4.1 mmol/L (3.5-5.1); TOTAL BILIRUBIN 0.8 mg/dL (0.0-1.0)
--- NOTE | 2021-06-15 00:35 | NUR ---
YI/KRANTHI COLLECTED AND WALKED TO LAB
[2021-06-15] MEDS ORDERED: ZINC50TA76 PO (01:58)
[2021-06-15] MEDS ORDERED: TICA90TA PO (01:58)
[2021-06-15] MEDS ORDERED: VITA1TAB44 PO (01:58)
[2021-06-15] MEDS ORDERED: ASPI-1205 PO (01:58)
[2021-06-15] MEDS ORDERED: ACET-2619 PO (01:58)
[2021-06-15] MEDS ORDERED: ATI.5 PO (01:58)
[2021-06-15] MEDS ORDERED: SEVE800T6 PO (01:58)
[2021-06-15] MEDS ORDERED: AMLO5TAB PO (01:58)
[2021-06-15] MEDS ORDERED: MIRT-91 PO (01:58)
[2021-06-15] MEDS ORDERED: PANT40EC PO (01:58)
[2021-06-15] MEDS ORDERED: ATOR40TA PO (01:58)
--- NOTE | 2021-06-15 04:23 | NUR ---
PT'S DIAPER CHANGED AND PT REPOSITIONED. NO WOUNDS NOTED.
[2021-06-15] MEDS ORDERED: DEXT 5% / NACL 0.9% 500 ML IV SCH (04:35)
--- NOTE | 2021-06-15 07:17 | NUR ---
transfer of care report given to nils khan
--- NOTE | 2021-06-15 08:02 | NUR ---
REPORT GIVEN TO CHRISTINA ARAUZ FOR CONTINUATION OF CARE
[2021-06-15 08:30] VITALS: BP 172/71
--- NOTE | 2021-06-15 08:30 | NUR ---
RECEIVED REPORT AND THE PT TO ROOM 120A. BREATHING EVEN AND UNLABORED. NO SIGNS OF DISTRESS NOTED. PT IS STABLE.
[2021-06-15] MEDS ORDERED: MAGNESIUM OXIDE 400 MG TAB PO PRN (10:05)
[2021-06-15] MEDS ORDERED: DOCUSATE SODIUM 100 MG GELCAP PO PRN (10:05)
[2021-06-15] MEDS ORDERED: MORPHINE SULFATE 2 MG/ML SYR IVP PRN (10:05)
[2021-06-15] MEDS ORDERED: HYDROcodone/APAP 5/325 MG 1 TAB TAB PO PRN (10:05)
[2021-06-15] MEDS ORDERED: SODIUM PHOS / POTASSIUM PHOS 1 PKT PDR PO PRN (10:05)
[2021-06-15] MEDS ORDERED: PANTOPRAZOLE 40 MG INJ VIAL IVP SCH (10:05)
[2021-06-15] MEDS ORDERED: ACETAMINOPHEN 325 MG TAB PO PRN (10:05)
[2021-06-15] MEDS ORDERED: MELATONIN 3 MG TAB PO PRN (10:05)
[2021-06-15] MEDS ORDERED: POTASSIUM CHLORIDE 10 MEQ TABER PO PRN (10:05)
[2021-06-15] MEDS ORDERED: ONDANSETRON 4 MG/2 ML VIAL IM/IVP PRN (10:05)
[2021-06-15] MEDS: PANTOPRAZOLE 40 MG INJ VIAL IVP SCH (10:06)
[2021-06-15] MEDS: DEXT 5% /NACL 0.9% 1,000 ML IV SCH ×2 (10:35→21:42)
[2021-06-15] MEDS ORDERED: MORPHINE SULFATE 4 MG/ML SYR IVP PRN (10:40)
[2021-06-15] MEDS: ENALAPRILAT 2.5 MG/2 ML VIAL IVP PRN (10:41)
[2021-06-15 10:52] LABS: BASOPHILS % (AUTO) 0.4 % (0.0-2.0); EOSINOPHILS # (AUTO) 0.1 K/uL (0-0.4); EOSINOPHILS % (AUTO) 1.3 % (0.0-4.0); HEMATOCRIT 32.1 % (36-48); HEMOGLOBIN 10.9 g/dL (12.0-16.0); LYMPHOCYTES # (AUTO) 1.3 K/uL (2.5-16.5); LYMPHOCYTES % (AUTO) 31.1 % (20.5-51.1); MEAN CORPUSCULAR HEMOGLOBIN 35 pg (27-31); MEAN CORPUSCULAR HGB CONC 34 g/dL (33-37); MONOCYTES # (AUTO) 0.5 K/uL (0.8-1.0); MONOCYTES % (AUTO) 13.5 % (1.7-9.3); NEUTROPHILS # (AUTO) 2.2 K/uL (1.8-7.7); NEUTROPHILS % (AUTO) 53.7 % (42.2-75.2); PLATELET COUNT (AUTO) 166 K/uL (140-450); RED BLOOD CELL COUNT(AUTO) 3.15 MIL/uL (4.20-5.40); RED CELL DISTRIBUTION WIDTH 13.7 % (11.6-13.7)
[2021-06-15 11:27] LABS: MAGNESIUM 2.5 mg/dL (1.8-2.4); PHOSPHORUS 3.7 mg/dL (2.5-4.9)
[2021-06-15 12:00] VITALS: BP 142/65
--- NOTE | 2021-06-15 12:00 | NUR ---
PT BP WAS HIGH SO GAVE MEDS PER MD ORDER TO LOWER BP. MED WAS EFFECTIVE.
[2021-06-15] MEDS: SEVELAMER CARBONATE 800 MG TAB PO SCH ×2 (12:23→17:42)
[2021-06-15 12:42] LABS: ANION GAP 14.4 (8-16); CARBON DIOXIDE 32.9 mmol/L (21-32); CREATININE 3.5 mg/dL (0.6-1.3); POTASSIUM 4.3 mmol/L (3.5-5.1)
--- NOTE | 2021-06-15 14:00 | NUR ---
MADE CALLS TO FAMILY TO GET CONSENTS FOR EGD AAT 8AM TOMORROW AND HD TOMRROW AT 9AM. NO ANSWER. BREATHING EVEN AND UNLABORED. NO SIGNS OF DISTRESS NOTED. PT IS STABLE.
[2021-06-15 16:00] VITALS: BP 137/49
--- NOTE | 2021-06-15 16:33 | NUR ---
PATIENT HAS BEEN SCREENED AND CATEGORIZED HIGH NUTRITION RISK. PATIENT WILL BE SEEN WITHIN 1-2 DAYS OF ADMISSION. REFERRAL RECEIVED FOR VOMITING OVER THREE DAYS [address] QU[address]
--- NOTE | 2021-06-15 18:30 | NUR ---
LEFT VOICEMAILS TO FAMILY MEMBERS FOR CONSENT OF THE EGD AND HD TOMORROW.
--- NOTE | 2021-06-15 19:40 | NUR ---
ENDORSED PT TO MUSIC INSTRUCTOR NURSE FOR CONTINUITY OF CARE. POC DISCUSSED.
[2021-06-15 20:00] VITALS: BP 152/50
[2021-06-15] MEDS: ATORVASTATIN 20 MG TAB PO SCH ×2 (21:00→21:37)
[2021-06-15] MEDS: QUEtiapine FUMARATE 25 MG TAB PO SCH (21:37)
[2021-06-15] MEDS: MIRTAZAPINE 15 MG TAB PO SCH (21:37)
[2021-06-16] VITALS: BP 145/50
[2021-06-16 04:00] VITALS: BP 163/62
[2021-06-16 07:00] LABS: ANION GAP 11.4 (8-16); CARBON DIOXIDE 35.9 mmol/L (21-32); POTASSIUM 4.3 mmol/L (3.5-5.1)
--- NOTE | 2021-06-16 07:10 | NUR ---
RECEIVED BEDSIDE REPORT FROM POWER ELECTRONICS RESEARCH ENGINEER NURSE FOR CONTINUITY OF CARE. WILL HAVE EGD AND HD TODAY. PT IS SLEEPING. BREATHING IS EVEN AND UNLABORED. NO SIGNS OF DISTRESS NOTED. NO PAIN NOTED. RUNNING D5NS AT 60ML/HR. IV IS PATENT AND INTACT. PT IS STABLE.
[2021-06-16] MEDS ORDERED: fentaNYL citrate 0.05 MG/ML VIAL ONE (07:15)
[2021-06-16] MEDS ORDERED: MIDAZOLAM 5 MG/5 ML VIAL ONE (07:15)
[2021-06-16] MEDS ORDERED: diphenhydrAMINE 50 MG/ML VIAL ONE (07:15)
[2021-06-16 07:30] LABS: BASOPHILS % (AUTO) 0.5 % (0.0-2.0); EOSINOPHILS # (AUTO) 0.1 K/uL (0-0.4); EOSINOPHILS % (AUTO) 2.8 % (0.0-4.0); HEMATOCRIT 31.5 % (36-48); HEMOGLOBIN 10.8 g/dL (12.0-16.0); LYMPHOCYTES # (AUTO) 1.1 K/uL (2.5-16.5); LYMPHOCYTES % (AUTO) 21.8 % (20.5-51.1); MEAN CORPUSCULAR HEMOGLOBIN 35 pg (27-31); MEAN CORPUSCULAR HGB CONC 34 g/dL (33-37); MEAN CORPUSCULAR VOLUME 102.1 fL (80-94); MONOCYTES # (AUTO) 0.6 K/uL (0.8-1.0); MONOCYTES % (AUTO) 11.5 % (1.7-9.3); NEUTROPHILS # (AUTO) 3.2 K/uL (1.8-7.7); NEUTROPHILS % (AUTO) 63.4 % (42.2-75.2); PLATELET COUNT (AUTO) 166 K/uL (140-450); RED BLOOD CELL COUNT(AUTO) 3.09 MIL/uL (4.20-5.40)
[2021-06-16 08:00] VITALS: BP 159/59
[2021-06-16 08:12] LABS: CREATININE 4.2 mg/dL (0.6-1.3)
[2021-06-16] MEDS ORDERED: VITAMIN D 400 IU TAB PO SCH (09:00)
[2021-06-16] MEDS: PANTOPRAZOLE 40 MG INJ VIAL IVP SCH (09:24)
[2021-06-16] MEDS: LOSARTAN 50 MG TAB PO SCH (09:24)
[2021-06-16] MEDS: amLODIPine 5 MG TAB PO SCH (09:24)
[2021-06-16] MEDS: LACTOBACILLUS RHAMNOSUS GG 1 EACH CAP PO SCH (09:24)
[2021-06-16] MEDS: ZINC SULF 220 MG CAP PO SCH (09:24)
[2021-06-16] MEDS: ASCORBIC ACID 500 MG TAB PO SCH (09:24)
[2021-06-16] MEDS: VIT-B COMP/VIT-C/FOLIC ACID 1 TAB PO SCH (09:24)
[2021-06-16] MEDS: SEVELAMER CARBONATE 800 MG TAB PO SCH ×3 (09:27→16:06)
--- NOTE | 2021-06-16 11:01 | NUR ---
PT IS CURRENTLY DOING DIALYSIS PROCEDURE AND RESTING. BREATHING IS EVEN AND UNLABORED. NO SIGNS OF DISTRESS NOTED. NO PAIN NOTED. RUNNING D5NS AT 60ML/HR. IV IS PATENT AND INTACT. PT IS STABLE. EGD WILL BE DONE TODAY.
[2021-06-16 12:00] VITALS: BP 94/46
--- NOTE | 2021-06-16 14:37 | NUR ---
DC PLANNING: THE PATIENT ADMITTED THROUGH THE ER FROM [facility] WITH C/O COFFEE-GROUND EMESIS, H/O ESRD WITH HD AT [facility] ON , AND SAT. METABOLIC ACIDOSIS NOTED WITH CO2 OF 41, ORDERS FOR NEPHRO AND GI CONSULTS. CANDACE SPOKE WITH THE PATIENTS DAUGHTER ABIGAIL BY PHONE, SHE STATES THE PATIENT HAS BEEN AT [facility] FOR THREE YEARS AND STATED THAT SHE IS AMBULATORY. SHE ALSO STATES THAT SHE IS THE CONTACT FOR AUTHORIZATION FOR PROCEDURES BUT DOESN'T KNOW IF SHE IS THE DPOA. ABIGAIL ALSO STATES THAT SHE DOESN'T KNOW MUCH ABOUT HER MOTHERS FUNCTIONAL STATUS THEY HAVEN'T BEEN CLOSE IN YEARS. ABIGAIL IS IN AGREEMENT WITH THE PATIENT RETURNING TO [facility] WHEN SHE'S CLINICALLY STABLE. CANDACE THEN SPOKE WITH MILO AT [facility] WHO STATES THAT THE DAUGHTER IS THE PATIENTS GREENKEEPER NOT HER DPOA. THE PATIENT IS TOTAL CARE S/P STROKE AND IS BED AND WC BOUND. SHE IS WC TRANSPORTED TO HD BUT REQUIRES A SITTER SHE TRIES TO PULL OUT HER LINES. DR DEIDRE DAWKINS IS HER BUILDING ARCHITECTURAL DESIGNER.THE PATIENT IS SCHEDULED FOR AN EGD TODAY. CANDACE WILL FOLLOW FOR NEEDS. Addendum: 06/16/21 at 1443 by Yani Cook CM Amended: Links added. Addendum: 06/17/21 at 1233 by Yani Cook CM DC PLANNING: EGD NEGATIVE, PLAN TO DC PATIENT BACK TO [facility] TODAY. ACCEPTED TO ROOM 6B WITH DR ARMANDO, ASKED FOR 1600 MAINFRAME ARCHITECT. NUMBER TO CALL REPORT IS [phone], REQUEST FOR 1600 MAINFRAME ARCHITECT FAXED TO [facility], PHONE NUMBER [phone]. DC INFORMATION ENDORSED TO THE PATIENTS RN. CM WILL FOLLOW. Addendum: 06/17/21 at 1504 by Yani Cook CM DC PLANNING: PATIENT BEING HELD SO THAT SHE CAN RESTART ANTI-COAGULANTS AND BE OBSERVED FOR 24 HOURS FOR TOLERANCE. TRANSPORT WITH [facility] CANCELLED, MILO FROM [facility] NOTIFIED THAT PATIENT WILL COME IN AM. [facility] FORM GIVEN TO THE QUANTITATIVE SOFTWARE ENGINEER TO BE FAXED IN AM ONCE FINAL DC ORDER IS RECEIVED. CM WILL FOLLOW.
--- NOTE | 2021-06-16 15:52 | NUR ---
06/16/21 RD INITIAL ASSESSMENT COMPLETED PLEASE REFER TO NUTRITION ASSESSMENT UNDER CARE ACTIVITY FOR ESTIMATED NUTRITIONAL NEEDS. 1. WHEN/IF MEDICALLY APPROPRIATE, RECOMMEND RENAL DIET 2. MONITOR NUTRITION-RELATED LABS AND GI SYMPTOMS 3. RD TO FOLLOW-UP 3-5 DAYS, MODERATE RISK (DOWNGRADED D/T NO MORE GI SYMPTOMS) AMIRA QUIROZ RD
--- NOTE | 2021-06-16 15:57 | NUR ---
DIALYSIS GOT 2LITERS OUT. CALLED THAT THE EGD WILL BE DONE AT 1700 TODAY. PT IS RESTING. BREATHING IS EVEN AND UNLABORED. NO SIGNS OF DISTRESS NOTED. NO PAIN NOTED. RUNNING D5NS AT 60ML/HR. IV IS PATENT AND INTACT. PT IS STABLE.
[2021-06-16 16:00] VITALS: BP 142/61
--- NOTE | 2021-06-16 17:00 | NUR ---
PT LEFT FOR EGD PROCEDURE. PT BREATHIGN IS EVEN AND UNLABORED. NO SIGNS OF DITRESS NOTED. PT IS STABLE.
[2021-06-16] MEDS ORDERED: MIDAZOLAM 2 MG/2 ML VIAL IVP ONE (17:25)
[2021-06-16] MEDS ORDERED: fentaNYL citrate 0.05 MG/ML VIAL IVP ONE (17:25)
--- NOTE | 2021-06-16 19:30 | NUR ---
ENDORSED PT TO PRINTING WORKER SUPERVISOR NURSE FOR CONTINUITY OF CARE. POC DISCUSSED.
[2021-06-16 20:00] VITALS: BP 143/59
[2021-06-16] MEDS: DEXT 5% /NACL 0.9% 1,000 ML IV SCH (20:12)
[2021-06-16] MEDS: MIRTAZAPINE 15 MG TAB PO SCH (20:14)
[2021-06-16] MEDS: ATORVASTATIN 20 MG TAB PO SCH (20:14)
[2021-06-16] MEDS: QUEtiapine FUMARATE 25 MG TAB PO SCH (20:14)
[2021-06-17] VITALS (8 sets, daily range): BP systolic 135–189; BP diastolic 57–70
[2021-06-17] MEDS: ENALAPRILAT 2.5 MG/2 ML VIAL IVP PRN ×3 (00:45→16:27)
[2021-06-17 06:21] LABS: BASOPHILS % (AUTO) 0.9 % (0.0-2.0); EOSINOPHILS # (AUTO) 0.1 K/uL (0-0.4); EOSINOPHILS % (AUTO) 3.7 % (0.0-4.0); HEMOGLOBIN 10.1 g/dL (12.0-16.0); LYMPHOCYTES # (AUTO) 1.1 K/uL (2.5-16.5); LYMPHOCYTES % (AUTO) 28.6 % (20.5-51.1); MEAN CORPUSCULAR HEMOGLOBIN 35 pg (27-31); MEAN CORPUSCULAR HGB CONC 35 g/dL (33-37); MEAN CORPUSCULAR VOLUME 100.6 fL (80-94); MONOCYTES # (AUTO) 0.5 K/uL (0.8-1.0); MONOCYTES % (AUTO) 13.1 % (1.7-9.3); NEUTROPHILS # (AUTO) 2.1 K/uL (1.8-7.7); NEUTROPHILS % (AUTO) 53.7 % (42.2-75.2); PLATELET COUNT (AUTO) 150 K/uL (140-450); RED BLOOD CELL COUNT(AUTO) 2.88 MIL/uL (4.20-5.40); RED CELL DISTRIBUTION WIDTH 13.7 % (11.6-13.7); WHITE BLOOD COUNT (AUTO) 3.9 K/uL (4.8-10.8)
[2021-06-17 06:34] LABS: ANION GAP 10.9 (8-16); CARBON DIOXIDE 30.8 mmol/L (21-32); CREATININE 2.9 mg/dL (0.6-1.3); POTASSIUM 3.7 mmol/L (3.5-5.1)
[2021-06-17 06:35] LABS: MAGNESIUM 2.2 mg/dL (1.8-2.4); PHOSPHORUS 3.5 mg/dL (2.5-4.9)
--- NOTE | 2021-06-17 07:36 | NUR ---
RECEIVED REPORT FROM [facility]. PT AWAKE & ALERT. NO SOB OR RESPIRATORY DISTRESS. ON RA. D5NS @ 60 ML/HR. LFA DRESSING C/D/I. FABIANO AV FISTULA WITH POSITIVE BRUIT AND THRILL. L CHEST PERMACATH. NEEDS ALL MET AT THIS TIME. SAFE PRECAUTIONS IN PLACE. WILL CONTINUE TO MONITOR CLOSELY.
--- NOTE | 2021-06-17 08:00 | NUR ---
HOURLY ROUNDS BEING CONDUCTED. PT STABLE.
[2021-06-17] MEDS: amLODIPine 5 MG TAB PO SCH (08:43)
[2021-06-17] MEDS: VIT-B COMP/VIT-C/FOLIC ACID 1 TAB PO SCH (08:44)
[2021-06-17] MEDS: LOSARTAN 50 MG TAB PO SCH (08:44)
[2021-06-17] MEDS: ZINC SULF 220 MG CAP PO SCH (08:44)
[2021-06-17] MEDS: PANTOPRAZOLE 40 MG INJ VIAL IVP SCH (08:45)
[2021-06-17] MEDS: SEVELAMER CARBONATE 800 MG TAB PO SCH ×3 (08:45→16:31)
[2021-06-17] MEDS: ASCORBIC ACID 500 MG TAB PO SCH (08:45)
[2021-06-17] MEDS: LACTOBACILLUS RHAMNOSUS GG 1 EACH CAP PO SCH (08:45)
--- NOTE | 2021-06-17 12:00 | NUR ---
PT IN NO DISTRESS. DENIES PAIN AT THIS TIME. NO SOB OR RESPIRATORY DISTRESS. ON RA. RR EVEN & UNLABORED. ENCOURAGE PT TO EAT. PT REFUSES LIQUIDS/FOOD INTAKE. NEEDS ALL MET AT THIS TIME. SAFETY MEAUSURES IN PLACE. WILL MONITOR CLOSELY.
--- NOTE | 2021-06-17 14:08 | NUR ---
GAVE REPORT TO GIANNI HARTLEY, SPOKE TO ART.
--- NOTE | 2021-06-17 15:00 | NUR ---
SPOKE WITH CASE MANAGEMENT. [facility] MD CANCELLED DISCHARGE ORDER.
[2021-06-17] MEDS ORDERED: ECOTRIN 81 MG TABEC PO SCH (16:00)
--- NOTE | 2021-06-17 17:30 | NUR ---
PT SEEN SLIDING OFF BED. NO FALL. GEOLOGIST'S ASSISTED PT'S LEG BACK IN BED AND REPOSITIONED PT. ASSESSED PT. NO INJURIES. PT DENIES PAIN. PT STABLE. PT SLEEPING. SAFETY MEASURES IN PLACE. WILL CONTINUE TO MONITOR.
--- NOTE | 2021-06-17 18:30 | NUR ---
PT STABLE. REPORT GIVEN TO NIGHTSHIFT RN FOR CONTINUITY OF CARE.
--- NOTE | 2021-06-17 19:25 | NUR ---
RECEIVED REPORT FROM AM NURSE. PATIENT IS AWAKE, CONFUSED RESTING COMFORTABLY IN BED. NO SOB NOTED. RESPIRATION REGULAR NON LABORED. SAFETY MEASURES IN PLACE. CALL LIGHT WITHIN REACH. WILL CONTINUE TO MONITOR.
[2021-06-17] MEDS: ATORVASTATIN 20 MG TAB PO SCH ×2 (20:53→21:00)
[2021-06-17] MEDS: MIRTAZAPINE 15 MG TAB PO SCH ×2 (20:54→21:00)
[2021-06-17] MEDS: QUEtiapine FUMARATE 25 MG TAB PO SCH ×2 (20:54→21:00)
[2021-06-17] MEDS ORDERED: NON-FORMULARY ITEM (Ticagrelor (Brilinta) 90 MG) PO SCH (21:00)
--- NOTE | 2021-06-17 21:15 | NUR ---
PATIENT REFUSED MEDICATIONS.
[2021-06-18] VITALS: BP 184/77
[2021-06-18] MEDS: ENALAPRILAT 2.5 MG/2 ML VIAL IVP PRN ×2 (00:29→06:35)
[2021-06-18 04:00] VITALS: BP 170/65
[2021-06-18 06:55] LABS: MAGNESIUM 2.3 mg/dL (1.8-2.4); PHOSPHORUS 4.5 mg/dL (2.5-4.9)
--- NOTE | 2021-06-18 07:30 | NUR ---
ENDORSED PATIENT TO AM NURSE FOR CONTINUITY OF CARE. PT IS STABLE
[2021-06-18 08:00] VITALS: BP 198/68
[2021-06-18] MEDS: SEVELAMER CARBONATE 800 MG TAB PO SCH ×2 (08:00→12:00)
--- NOTE | 2021-06-18 08:00 | NUR ---
REASSESSED PT S/P VASOTEC IVP FOR HTN. CURRENT BP 198/68. PT IS ASYMPTOMATIC, ALERT AND VERBALLY RESPONSIVE. DENIES ANY PAIN OR DISCOMFORT. DR. MELISSA TELLO.
--- NOTE | 2021-06-18 08:15 | NUR ---
PAGED DR TORRES AGAIN. STILL WAITING FOR CALL BACK REGARDING HTN. PT REMAINS ASYMPTOMATIC. PT IS SITTING IN BED, EATING BREAKFAST WITH SPOONFEED ASSISTANCE BY STAFF.
[2021-06-18] MEDS ORDERED: hydrALAZINE 20 MG/ML VIAL ONE (08:52)
[2021-06-18] MEDS ORDERED: ASPIRIN 81 MG TAB.CHEW PO SCH (09:00)
[2021-06-18] MEDS: ASCORBIC ACID 500 MG TAB PO SCH (09:00)
[2021-06-18] MEDS: VIT-B COMP/VIT-C/FOLIC ACID 1 TAB PO SCH (09:00)
[2021-06-18] MEDS: amLODIPine 5 MG TAB PO SCH (09:00)
[2021-06-18] MEDS: ZINC SULF 220 MG CAP PO SCH (09:00)
[2021-06-18] MEDS ORDERED: LOSARTAN 50 MG TAB PO SCH (09:00)
[2021-06-18] MEDS: LACTOBACILLUS RHAMNOSUS GG 1 EACH CAP PO SCH (09:00)
[2021-06-18] MEDS ORDERED: LABETALOL 100 MG/20 ML VIAL IVP PRN (09:10)
[2021-06-18] MEDS: PANTOPRAZOLE 40 MG INJ VIAL IVP SCH (09:36)
[2021-06-18] MEDS ORDERED: LOSA50TA1 PO (10:03)
[2021-06-18] MEDS ORDERED: PANT40EC PO (10:06)
--- NOTE | 2021-06-18 11:00 | NUR ---
Dialysis nurse at bedside to initiate hemodialysis. Pt resting in bed, awake, no c/o pain/discomfort, no signs of distress.
--- NOTE | 2021-06-18 11:30 | NUR ---
Spoke to DAVONTE Maharaj from [facility]. Telephone report given regarding discharge plan today.
[2021-06-18 12:00] VITALS: BP 124/53
--- NOTE | 2021-06-18 12:50 | NUR ---
SPOKE WITH DR. TORRES, STATED HE WILL DISCHARGE PT TO [facility] AFTER HEMODIALYSIS TODAY. FAXED THE [facility] TRANSPORTATION REQUEST FORM TO [phone], CONFIRMATION ATTACHED TO PT'S CHART. CALLED TEL# [phone], NO ANSWER, VM MESSAGE LEFT. CONTACTED EDITH [facility] [phone], NO ANSWER, VM MESSAGE LEFT WELL, AWAITING FOR CALL BACK. .
--- NOTE | 2021-06-18 13:14 | NUR ---
EDITH FROM [facility] CALLED BACK, STATED SHE WILL LOOK UNTO IT AND WILL GIVE ME A CALL BACK FOR TRANSPORT AUTH.
--- NOTE | 2021-06-18 13:30 | NUR ---
DISCHARGE ORDER AND FACE SHEET FAXED TO IE REQUESTED BY EDITH. CONFIRMATION ATTACHED TO PT'S CHART. [facility] TRANSPORTATION AUTH: [id number]
--- NOTE | 2021-06-18 13:42 | NUR ---
CONTACTED [facility], SPOKE WITH CHANCE. FACESHEET WITH [facility] AUTH NUMBER, PT;S HT AND WT FAXED REQUESTED. CONFIRMATION ATTACHED TO PT'S CHART.
--- NOTE | 2021-06-18 13:50 | NUR ---
HEMODIALYSIS TX COMPLETED WITH 800ML OUTPUT.
--- NOTE | 2021-06-18 14:00 | NUR ---
Left voicemail for daughter Asia regarding discharge plan. Left voicemail to call back to hospital.
--- NOTE | 2021-06-18 14:22 | NUR ---
Called Asia again regarding discharge plan. No response and was sent to voicekyil. Spoke on the phone with granddaughter Tabby Scott and notified of discharge plan. No further inquiries and agree with discharge plan.
--- NOTE | 2021-06-18 15:30 | NUR ---
REMOVED LEFT FOREARM IV, CANNULA INTACT, SITE COVERED WITH GAUZE AND TAPE. PATIENT DISCHARGED VIA GURNEY TRANSPORT. LEFT CHEST PERMACATH DRESSING CLEAN, DRY, AND INTACT.
== END 2021-06-18 15:30 | DRG 377 ==
LOC: MED 21:26 → EEVIPCON 06-15 04:43 → MTU 06-15 04:43
PROC: 5A1D70Z Performance of Urinary Filtration, Intermittent, Less than 6 Hours Per Day (ICD-10-PCS; 2021-06-16)
PROC: 0DJ08ZZ Inspection of Upper Intestinal Tract, Via Natural or Artificial Opening Endoscopic (ICD-10-PCS; principal; 2021-06-17)
PROC: 5A1D70Z Performance of Urinary Filtration, Intermittent, Less than 6 Hours Per Day (ICD-10-PCS; 2021-06-18)
DX: K92.2 Gastrointestinal hemorrhage, unspecified (principal); N18.6 End stage renal disease; N17.0 Acute kidney failure with tubular necrosis; I13.2 Hypertensive heart and chronic kidney disease with heart failure and with stage 5 chronic kidney disease, or end stage renal disease; E87.3 Alkalosis; Z66 Do not resuscitate; E78.5 Hyperlipidemia, unspecified; I50.9 Heart failure, unspecified; E83.52 Hypercalcemia; F03.90 Unspecified dementia, unspecified severity, without behavioral disturbance, psychotic disturbance, mood disturbance, and anxiety; F25.9 Schizoaffective disorder, unspecified; E83.39 Other disorders of phosphorus metabolism; Z20.822 Contact with and (suspected) exposure to COVID-19; J44.9 Chronic obstructive pulmonary disease, unspecified; I25.10 Atherosclerotic heart disease of native coronary artery without angina pectoris; D53.9 Nutritional anemia, unspecified; E11.22 Type 2 diabetes mellitus with diabetic chronic kidney disease; I69.320 Aphasia following cerebral infarction; Z99.2 Dependence on renal dialysis; Z79.899 Other long term (current) drug therapy; K20.90 Esophagitis, unspecified without bleeding; K29.70 Gastritis, unspecified, without bleeding
CPT/HCPCS: 36415; 71045; 80048; 80053; 83735; 84100; 85025; 87081; 96374; 99291; C9113; J0360; J1200; J1644; J2250; J3010; J3490; J7030; Q0092

== ENCOUNTER 2021-07-13 16:24 | Inpatient (IN) | payer OTHER ==
[~2021-07-13] VITALS: Ht 154.9 cm; Wt 49.4 kg
[~2021-07-13 16:24] MED LIST changes: -AMLO10TA88 PO; +AMLO5TAB PO; +ASPI-1205 PO; +ATI.5 PO; +ATOR40TA PO; -FLUC100T PO; +LOSA50TA1 PO; -LOSA50TA57 PO; +MIRT-91 PO; -PIPE50SO5 IV; +VITA1TAB44 PO
--- NOTE | 2021-07-13 16:27 | NUR ---
PT NEREYDA, JEAN PAUL, VIA GURNEY TO BED 11.
[2021-07-13 16:30] VITALS: BP 203/99
[2021-07-13 17:06] LABS: BASOPHILS % (AUTO) 0.5 % (0.0-2.0); HEMATOCRIT 33.1 % (36-48); HEMOGLOBIN 11.2 g/dL (12.0-16.0); LYMPHOCYTES # (AUTO) 0.8 K/uL (2.5-16.5); LYMPHOCYTES % (AUTO) 15.7 % (20.5-51.1); MEAN CORPUSCULAR HEMOGLOBIN 35 pg (27-31); MEAN CORPUSCULAR HGB CONC 34 g/dL (33-37); MEAN CORPUSCULAR VOLUME 102.9 fL (80-94); MONOCYTES # (AUTO) 0.5 K/uL (0.8-1.0); MONOCYTES % (AUTO) 9.3 % (1.7-9.3); NEUTROPHILS # (AUTO) 3.7 K/uL (1.8-7.7); NEUTROPHILS % (AUTO) 74.5 % (42.2-75.2); PLATELET COUNT (AUTO) 180 K/uL (140-450); RED BLOOD CELL COUNT(AUTO) 3.21 MIL/uL (4.20-5.40); RED CELL DISTRIBUTION WIDTH 14.4 % (11.6-13.7)
--- NOTE | 2021-07-13 17:32 | NUR ---
CRITICAL VALUE FROM LAB CALLED LACTIC ACID 2.1 INFORMED ER DOCTOR SIN
[2021-07-13 17:33] LABS: PROTHROMBIN TIME 10.8 secs (10.8-13.4)
[2021-07-13] MEDS ORDERED: VANCOMYCIN 1,000 MG in DEXTROSE 5% 250 ML IV ONE (17:35)
[2021-07-13] MEDS ORDERED: NACL 0.9% 500 ML IV ONE (17:35)
[2021-07-13] MEDS ORDERED: PIPERACILLIN/TAZOBACTAM 2.25 GM in DEXTROSE 5% 50 ML IV ONE (17:35)
[2021-07-13 17:37] LABS: ALBUMIN 3.3 g/dL (3.4-5.0); ANION GAP 12.6 (8-16); CARBON DIOXIDE 29.3 mmol/L (21-32); CREATININE 3.5 mg/dL (0.6-1.3); POTASSIUM 3.9 mmol/L (3.5-5.1); TOTAL BILIRUBIN 1.1 mg/dL (0.0-1.0)
[2021-07-13 17:39] LABS: MAGNESIUM 2.3 mg/dL (1.8-2.4); PHOSPHORUS 4.5 mg/dL (2.5-4.9)
[2021-07-13 19:15] VITALS: BP 129/55
[2021-07-13] MEDS ORDERED: PIPERACILLIN/TAZOBACTAM 2.25 GM VIAL IV ONE (19:19)
--- NOTE | 2021-07-13 19:22 | NUR ---
received report from Tim ARAUZ for continuation of care.
--- NOTE | 2021-07-13 19:28 | NUR ---
PLACED PT ON BiPAP 22/10, 40%. DR. PARDO INFORMED ABOUT SETTINGS. MACHINE PLUGGED IN RED OUTLET, ALARM SET AND FUNCTIONING. WILL CONTINUE TO MONITOR PT.
[2021-07-13] MEDS ORDERED: VANCOMYCIN 1,000 MG VIAL ONE (20:08)
[2021-07-13 20:29] VITALS: BP 125/60
--- NOTE | 2021-07-13 21:15 | NUR ---
pericare provided for patient. patient tolerated well. no wounds noted on patient.
--- NOTE | 2021-07-13 21:17 | NUR ---
# 16 FR Urinary catheter inserted utilizing sterile technique. Immediate return of 10 ml hazy, yellow, with sediments in urine noted. Urine sample collected and sent to lab. Pt tolerated procedure well.
--- NOTE | 2021-07-13 21:21 | NUR ---
Patient will be admitted to care of Elisha WATSON. Admited to Telemetry. Will go to room 114a. Belongings list completed. Report to Eliana ARAUZ.
--- NOTE | 2021-07-13 21:21 | NUR ---
patient tx to the floor
[2021-07-13 21:25] VITALS: BP 180/71
--- NOTE | 2021-07-13 21:30 | NUR ---
PT WAS SUCCESSFULLY TRANSPORTED VIA BiPAP FROM ED TO TELE FLOOR WITHOUT ANY ISSUES. PT IS IN NO RESPIRATORY DISTRESS. SPO2 100%. RNs AT BEDSIDE. WILL CONTINUE TO MONITOR PT.
[2021-07-13 22:15] LABS: BILIRUBIN,URINE NEGATIVE (NEGATIVE); BLOOD, URINE TRACE-I (NEGATIVE); COLOR,URINE YELLOW (YELLOW); LEUKOCYTE ESTERASE ,URINE 2+ (NEGATIVE); NITRITE, URINE NEGATIVE (NEGATIVE); PH,URINE >=9.0 (5.0-9.0); UGLUCOSE TRACE (NEGATIVE)
[2021-07-13 22:19] LABS: APPEARANCE,URINE CLOUDY (CLEAR)
[2021-07-13 22:28] LABS: RBC,URINE 0-5 /HPF (0-5); WBC,URINE 20-60 /HPF (0-5)
--- NOTE | 2021-07-14 02:00 | NUR ---
ROUNDS NOTES: PAGEEarlene WTASON TO INFORM PT BP STILL HIGH, AND THAT NO ORDERS YET FOR PT.
--- NOTE | 2021-07-14 04:00 | NUR ---
received order to keep pt npo, give hydralazine 20mg/ml and get RT to see. her. Order noted and carried out. Pt repositioned and sleeping in bed. Still on Bi-Pap machine, sating 98-100%. Will cont. to monitor.
[2021-07-14] MEDS ORDERED: hydrALAZINE 20 MG/ML VIAL IVP ONE (05:25)
[2021-07-14] MEDS ORDERED: ALBUTEROL SULFATE/IPRATROPIU 3 ML SOL IH PRN (05:50)
--- NOTE | 2021-07-14 05:59 | NUR ---
PER DR. PALACIO ORDER FOR RT REQUEST FOR SERVICES. UPON ASSESSMENT : OXYGEN ORDERED, DUONEB Q4HR PRN FOR SHORTNESS OF BREATH. PT IS ON BiPAP AT THIS TIME. WE WILL TRY AND WEAN PT FROM BiPAP AND PLACED IT ON STAND-BY.
--- NOTE | 2021-07-14 07:11 | NUR ---
END OF SHIFT REPORT: PT CLEANED, KEPT DRY AND CLEANED, REPOSITIONED. NO S/SX OF DISTRESS, ON BI-PAP MACHINE SATING 99-100%. HER BP REDUCED TO 133/59 AND COMMUNICATED TO MD. END OF SHIFT REPORT GIVEN TO INCOMING NURSE, JACINTO.
--- NOTE | 2021-07-14 07:20 | NUR ---
RECEIVED PT FROM HAZARD MITIGATION OFFICER NURSE FOR CONTINUITY OF CARE. PT ON BED ON BIPAP SAT 100%. RESPIRATIONS EVEN AND UNLABORED. NO SIGNS OF DISTRESS. IV ON L HAND G 22 SALINE LOCK. SKIN IS WARM AND DRY TO TOUCH. SAFETY PRECAUTIONS IN PLACE. CALL LIGHT WITHIN REACH. WILL CONTINUE TO MONITOR.
--- NOTE | 2021-07-14 07:30 | NUR ---
BLOOD PRESSURE REASSESSED ITS BELOW 160 PATIENT IS NOT ON ANY DISCOMFORT.
[2021-07-14 08:00] VITALS: BP 172/70
--- NOTE | 2021-07-14 09:42 | NUR ---
PATIENT STILL ON BI PAP BLOOD PRESSURE STILL RUNNING ABOVE [address] TORRES SINCE NO MEDICATION ORDER YET. DR. TORRES RESPONDED WILL MAKE ORDER.
[2021-07-14 12:00] VITALS: BP 170/86
--- NOTE | 2021-07-14 12:00 | NUR ---
PATIENT ON BED NO DISTRESS NOTED ON BI PAP AND O2 SAT AT 99-100%
[2021-07-14] MEDS ORDERED: MAGNESIUM OXIDE 400 MG TAB PO PRN (12:35)
[2021-07-14] MEDS ORDERED: MORPHINE SULFATE 2 MG/ML SYR IVP PRN (12:35)
[2021-07-14] MEDS ORDERED: HYDROcodone/APAP 5/325 MG 1 TAB TAB PO PRN (12:35)
[2021-07-14] MEDS ORDERED: ACETAMINOPHEN 325 MG TAB PO PRN (12:35)
[2021-07-14] MEDS ORDERED: ONDANSETRON 4 MG/2 ML VIAL IM/IVP PRN (12:35)
[2021-07-14] MEDS ORDERED: SODIUM PHOS / POTASSIUM PHOS 1 PKT PDR PO PRN (12:35)
[2021-07-14] MEDS ORDERED: DOCUSATE SODIUM 100 MG GELCAP PO PRN (12:35)
[2021-07-14] MEDS ORDERED: POTASSIUM CHLORIDE 10 MEQ TABER PO PRN (12:35)
[2021-07-14] MEDS ORDERED: MELATONIN 3 MG TAB PO PRN (12:35)
--- NOTE | 2021-07-14 14:19 | NUR ---
LEFT MESSAGE TO DR. HATFIELD FOR ORDER FOR DIALYSIS AND HE RESPONDED HE WILL CALL [facility].
--- NOTE | 2021-07-14 15:34 | NUR ---
PATIENT HAS BEEN SCREENED AND CATEGORIZED MODERATE NUTRITION RISK. PATIENT WILL BE SEEN WITHIN 3-5 DAYS OF ADMISSION. AMIRA QUIROZ RD
[2021-07-14 15:45] LABS: BASOPHILS % (AUTO) 0.3 % (0.0-2.0); EOSINOPHILS % (AUTO) 0.5 % (0.0-4.0); HEMATOCRIT 34.4 % (36-48); HEMOGLOBIN 11.5 g/dL (12.0-16.0); LYMPHOCYTES # (AUTO) 0.7 K/uL (2.5-16.5); LYMPHOCYTES % (AUTO) 12.3 % (20.5-51.1); MEAN CORPUSCULAR HEMOGLOBIN 35 pg (27-31); MEAN CORPUSCULAR HGB CONC 34 g/dL (33-37); MEAN CORPUSCULAR VOLUME 103.7 fL (80-94); MONOCYTES # (AUTO) 0.6 K/uL (0.8-1.0); MONOCYTES % (AUTO) 10.8 % (1.7-9.3); NEUTROPHILS # (AUTO) 4.1 K/uL (1.8-7.7); NEUTROPHILS % (AUTO) 76.1 % (42.2-75.2); PLATELET COUNT (AUTO) 177 K/uL (140-450); RED BLOOD CELL COUNT(AUTO) 3.31 MIL/uL (4.20-5.40); RED CELL DISTRIBUTION WIDTH 14.9 % (11.6-13.7); WHITE BLOOD COUNT (AUTO) 5.4 K/uL (4.8-10.8)
--- NOTE | 2021-07-14 15:49 | NUR ---
DC PLANNING: THE PATIENT ADMITTED WITH H/O CVA AND ESRD WITH C/O SOB AND O2 SATS ON 70%, PATIENT PLACED ON O2 6L. DIAGNOSTIC FINDINGS OF PLEURAL EFFUSIONS, PNA, LEFT LUNG COMPLETE ATELECTASIS. PATIENT SUBSEQUENTLY PLACED ON BIPAP AT 30% FIO2, BLOOD AND URINE CULTURES COLLECTED. CHEST CT SHOWS SUBTOTAL COLLAPSE OF THE LEFT LUNG, CHEST US SHOWS LARGE LEFT PLEURAL EFFUSION OF 1226 ML, PLANS FOR THORACENTESIS. PATIENT STARTED ON ZOSYN IV, NEPHRO AND PULMO CONSULTS ORDERED. CANDACE SPOKE WITH THE PATIENTS GRANDDAUGHTER JONES BY PHONE AFTER TRYING TO REACH HER DAUGHTER ABIGAIL. THE PATIENT REMAINS TOTAL CARE AT [facility] AND HAS HAD NO CHANGE IN FUNCTIONAL ABILITY SINCE HER LAST ADMISSION AT THIS HOSPITAL. CANDACE THEN SPOKE WITH MILO AT [facility] WHO CONFIRMED THAT THE PATIENT GOES TO [facility] [address] ON TTS AT 8:00 AND IS TRANSPORTED BY [facility] WITH A SITTER BECAUSE THE PATIENT'S CONFUSED. SHE IS BED AND WC BOUND AND TOTAL CARE. DC PLAN WHEN PATIENT IS STABLE IS TO RETURN TO [facility], CANDACE WILL FOLLOW. Addendum: 07/14/21 at 1612 by Yani Cook CM Amended: Links added. Addendum: 07/15/21 at 1429 by Yani Cook CM DC PLANNING: REFERRAL PACKET FAXED TO [facility] IN [place] OF [place] THIS WEEK. TRANSPORT BACK TO [facility] WILL NEED TO BE ARRANGED WITH [facility], COMPLETED FORM GIVEN TO DIRECTOR PAYER TO FAX WHEN DC ORDER IS RECEIVED. CANDACE ALSO SPOKE WITH MILO AT [facility] TO LET HER KNOW PATIENT MIGHT BE RETURNING THIS WEEKEND. CM WILL FOLLOW. Addendum: 07/19/21 at 1434 by Pham Woods RN DC PLANNING: S/P THORACENTESIS , REMOVED 1.5L. ON 3L/NC SATING 99%, HEMO DIALYSIS TODAY ,CONTINUE IV ABX ZOSYN. NEPHROLOGY AND PULMO FOLLOWING. DC PLAN TO RETURN TO [facility] WHEN STABLE. CM TO FOLLOW Addendum: 07/20/21 at 1254 by Yani Cook CM DC PLANNING: DC ORDER RECEIVED FOR PATIENT TO RETURN TO [facility]. ACCEPTED TO ROOM 16B, DR ARMANDO TO FOLLOW. TRANSPORT REQUEST SENT TO [facility] FOR [address] WOOD PILE DRIVER OPERATOR, WAITING FOR CONFIRMATION ON ETA. NUMBER TO CALL REPORT IS [phone]. REQUEST TO RESUME DIALYSIS TRANSPORT ALSO FAXED TO [facility], [facility], H&P FAXED PER THEIR REQUEST. CM WILL FOLLOW. Addendum: 07/20/21 at 1512 by Yani Cook CM DC PLANNING: [facility] TRANSPORT CALLED TO CONFIRM THAT PATIENT WILL BE PICKED UP AT 1600 BY [facility] ([phone]). CM WILL FOLLOW.
[2021-07-14 16:00] VITALS: BP 161/59
[2021-07-14 16:06] LABS: MAGNESIUM 2.3 mg/dL (1.8-2.4); PHOSPHORUS 5.8 mg/dL (2.5-4.9)
[2021-07-14 16:25] LABS: ANION GAP 13.5 (8-16); CARBON DIOXIDE 29.6 mmol/L (21-32); POTASSIUM 4.1 mmol/L (3.5-5.1)
[2021-07-14 16:28] LABS: CREATININE 4.1 mg/dL (0.6-1.3)
[2021-07-14] MEDS: SEVELAMER CARBONATE 800 MG TAB PO SCH (17:00)
--- NOTE | 2021-07-14 17:00 | NUR ---
INFORM DR. TORRES THAT BLOOD PRESSURE STILL HIGH IF WE CAN GET PRN MEDICATION FOR PATIENT HE ORDER HYDRALAZINE 10 MG IVP Q6 PRN FOR SBP ABOVE 160. BP AT THIS TIME 168/89. RN COVERING INFORM TO GIVE PRN MEDS. ALSO CALLED RT PATIENT ON BI PAP IF WE CAN PUT PATIENT ON HIGH FLOW OR NASAL CANULA SO PATIENT CAN EAT AND TAKE MEDICATION. RT PUT PATIENT ON NASAL CANULA.
[2021-07-14] MEDS: hydrALAZINE 20 MG/ML VIAL IVP PRN (17:53)
[2021-07-14] MEDS: PIPERACILLIN/TAZOBACTAM 2.25 GM in DEXTROSE 5% 50 ML IV SCH (17:54)
--- NOTE | 2021-07-14 17:54 | NUR ---
DAVONTE HANG IV ZOSYN ANTIBIOTIC AND GAVE HYDRALAZINE IVP FOR BP >160.
--- NOTE | 2021-07-14 18:59 | NUR ---
DIALYSIS NURSE AT BED SIDE. PATIENT EATING DINNER O2 SAT AT 99% AT NASAL CANULA.
--- NOTE | 2021-07-14 19:20 | NUR ---
PATIENT ON BED WITH ON GOING DIALYSIS ON STABLE CONDITION. GAVE REPORT TO MORTGAGE SERVICING SPECIALIST NURSE FOR CONTINUITY OF CARE.
--- NOTE | 2021-07-14 19:25 | NUR ---
RECEIVED PATIENT FROM AM NURSE FOR CONTINUITY OF CARE. PT IS ONGOING DIALYSIS . PT IS STABLE.
[2021-07-14 20:00] VITALS: BP 124/49
[2021-07-14] MEDS ORDERED: NON-FORMULARY ITEM (Ticagrelor (Brilinta) 90 MG) PO SCH (21:00)
--- NOTE | 2021-07-14 22:15 | NUR ---
DIALYSIS SESSION DONE,TOOK OUT 2.4 L.,NO DISTRESS NOTED
[2021-07-14] MEDS: ATORVASTATIN 20 MG TAB PO SCH (22:51)
[2021-07-14] MEDS: MIRTAZAPINE 15 MG TAB PO SCH (22:52)
[2021-07-14] MEDS: hydrALAZINE 25 MG TAB PO SCH (23:06)
[2021-07-15] VITALS: BP 133/45
--- NOTE | 2021-07-15 | NUR ---
PATIENT REQUESTED FOOD AFTER DIALYSIS, GAVE TURKEY SANDWICH,ATE 50% NO DISTRESS NOTED
[2021-07-15] MEDS: PIPERACILLIN/TAZOBACTAM 2.25 GM in DEXTROSE 5% 50 ML IV SCH ×4 (00:01→17:58)
--- NOTE | 2021-07-15 02:00 | NUR ---
PATIENT SLEEPING AT THIS TIME,ALL SAFETY MEASURES IN PLACE, RESPIRATIONS EVEN AND UNLABORED ,NO DISTRESS NOTED
[2021-07-15 04:00] VITALS: BP 135/69
--- NOTE | 2021-07-15 04:00 | NUR ---
PATIENT ASLEEP ,RESPIRATIONS EVEN AND UNLABORED,NO DISTRESS NOTED
--- NOTE | 2021-07-15 06:00 | NUR ---
CLEANED AND REPOSITIONED THE PATIENT,NO SOB NOTED
[2021-07-15 06:50] LABS: BASOPHILS % (AUTO) 0.6 % (0.0-2.0); EOSINOPHILS # (AUTO) 0.1 K/uL (0-0.4); EOSINOPHILS % (AUTO) 1.1 % (0.0-4.0); HEMATOCRIT 29.1 % (36-48); LYMPHOCYTES # (AUTO) 0.5 K/uL (2.5-16.5); LYMPHOCYTES % (AUTO) 10.2 % (20.5-51.1); MEAN CORPUSCULAR HEMOGLOBIN 36 pg (27-31); MEAN CORPUSCULAR HGB CONC 35 g/dL (33-37); MEAN CORPUSCULAR VOLUME 102.8 fL (80-94); MONOCYTES # (AUTO) 0.5 K/uL (0.8-1.0); MONOCYTES % (AUTO) 11.6 % (1.7-9.3); NEUTROPHILS # (AUTO) 3.6 K/uL (1.8-7.7); NEUTROPHILS % (AUTO) 76.5 % (42.2-75.2); PLATELET COUNT (AUTO) 146 K/uL (140-450); RED BLOOD CELL COUNT(AUTO) 2.83 MIL/uL (4.20-5.40); RED CELL DISTRIBUTION WIDTH 14.5 % (11.6-13.7); WHITE BLOOD COUNT (AUTO) 4.7 K/uL (4.8-10.8)
--- NOTE | 2021-07-15 07:15 | NUR ---
RECEIVE REPORT FROM HEALTH COUNSELOR NURSE FOR CONTINUITY OF CARE. PATIENT AWAKE NO DISTRESS NOTED. PERMA CATH ON LEFT UPPER CHEST NO BLEEDING OR SIGN OF INFECTION. IV LINE ON LEFT HAND INTACT.
[2021-07-15 07:43] LABS: ANION GAP 11.6 (8-16); CARBON DIOXIDE 30.8 mmol/L (21-32); CREATININE 2.6 mg/dL (0.6-1.3); POTASSIUM 3.4 mmol/L (3.5-5.1)
[2021-07-15 08:00] VITALS: BP 166/78
[2021-07-15] MEDS: SEVELAMER CARBONATE 800 MG TAB PO SCH ×3 (08:51→17:00)
[2021-07-15] MEDS: VITAMIN D 400 IU TAB PO SCH (08:51)
[2021-07-15] MEDS: VIT-B COMP/VIT-C/FOLIC ACID 1 TAB PO SCH (08:52)
[2021-07-15] MEDS: LOSARTAN 50 MG TAB PO SCH (08:52)
[2021-07-15] MEDS: hydrALAZINE 25 MG TAB PO SCH ×2 (08:52→21:04)
[2021-07-15] MEDS: ZINC SULF 220 MG CAP PO SCH (08:53)
[2021-07-15] MEDS: ASPIRIN 81 MG TAB.CHEW PO SCH (08:53)
[2021-07-15] MEDS: PANTOPRAZOLE 40 MG TABEC PO SCH (08:53)
[2021-07-15] MEDS: QUEtiapine FUMARATE 25 MG TAB PO SCH (08:53)
[2021-07-15] MEDS: amLODIPine 5 MG TAB PO SCH (08:54)
[2021-07-15] MEDS: ASCORBIC ACID 500 MG TAB PO SCH (08:59)
[2021-07-15] MEDS ORDERED: CLOPIDOGREL 75 MG TAB PO SCH (09:00)
--- NOTE | 2021-07-15 09:06 | NUR ---
DR. BAEZ LIVESTOCK BRANDS INSPECTOR AT BED SIDE.
--- NOTE | 2021-07-15 09:15 | NUR ---
PATIENT TOOK MEDICATION NO DISTRESS NOTED. AV SHUNT WITH POSITIVE THRILL AND BRUIT. POOL CATH ON LEFT UPPER CHEST INTACT NO BLEEDING OR SIGN AND SYMPTOMS OF INFECTION. PATIENT ON NASAL CANULA AT 3 L/MIN SATURATION AT 99 TO 100 %. CALL LIGHT WITH IN EASY REACH.
--- NOTE | 2021-07-15 10:30 | NUR ---
PATIENT IV WAS PULLED OUT WHEN RADIOLOGY DOING X RAY.
[2021-07-15 12:00] VITALS: BP 139/47
--- NOTE | 2021-07-15 12:00 | NUR ---
RN PUT IV LINE AND STARTED IV ROCEPHIN TOLERATED WELL AND NO ADVERSE REACTION NOTED.
--- NOTE | 2021-07-15 12:41 | NUR ---
PATIENT REFUSED TO EAT LUNCH AND REFUSED HER RENVELA EVEN WITH EXPLANATION AND ENCOURAGEMENT. GRAND DAUGHTER AT BED SIDE.
--- NOTE | 2021-07-15 13:52 | NUR ---
PATIENT ALERT ON GOING THORACENTESIS AT THIS TIME.
--- NOTE | 2021-07-15 14:42 | NUR ---
THORACENTESIS IS DONE OBTAIN 1500 ML OF FLUID. PATIENT ON STABLE CONDITION NO SIGN OF BLEEDING
--- NOTE | 2021-07-15 15:45 | NUR ---
PATIENT ASLEEP BUT ABLE TO WAKE UP NO SHORTNESS OF BREATH. NO S/S OF BLEEDING. RESIDENT KEEP REMOVING NASAL CANULA BUT O2 SAT AT 99 TO 100.
[2021-07-15 16:00] VITALS: BP 139/59
--- NOTE | 2021-07-15 18:56 | NUR ---
PATIENT ASLEEP ON BED RESTING NO DISTRESS NOTED.
--- NOTE | 2021-07-15 19:16 | NUR ---
PATIENT ASLEEP ON 3 L/MIN VIA NASAL CANULA OF O2 NO DISTRESS NOTED. GAVE REPORT TO ORACLE DISTRIBUTION CONSULTANT NURSE FOR CONTINUITY OF CARE.
--- NOTE | 2021-07-15 19:17 | NUR ---
PATIENT EATING DINNER NO DISTRESS NOTED. ON O2 AT 4 L/MIN VIA NASAL CANULA. ALL SAFETY MEASURE IN PLACE.
--- NOTE | 2021-07-15 19:30 | NUR ---
RECEIVED PT FROM AM NURSE FOR CONTINUITY OF CARE, PT IS STABLE,NO SOB NOTED
[2021-07-15 20:00] VITALS: BP 156/64
--- NOTE | 2021-07-15 20:05 | NUR ---
CHECKED ON PATIENT. PT DOES NOT HAVE BIPAP ON. PATIENT WEARING 4LNC. NO SOB NOTED
--- NOTE | 2021-07-15 20:44 | NUR ---
patient off oxygen. sats 99% 0n room air. no sob noted
[2021-07-15] MEDS: ATORVASTATIN 20 MG TAB PO SCH (21:05)
[2021-07-15] MEDS: MIRTAZAPINE 15 MG TAB PO SCH (21:06)
--- NOTE | 2021-07-15 21:30 | NUR ---
ALL MEDS GIVEN AT THIS TIME. RESPIRATIONS EVEN AND UNLABORED, ALL SAFETY MEASURES IN PLACE
[2021-07-16] VITALS: BP 156/64
--- NOTE | 2021-07-16 | NUR ---
PATIENT SLEEPING, RESPIRATIONS EVEN AND UNLABORED,ALL SAFETY MEASURES IN PLACE
[2021-07-16] MEDS: PIPERACILLIN/TAZOBACTAM 2.25 GM in DEXTROSE 5% 50 ML IV SCH ×4 (00:22→17:29)
--- NOTE | 2021-07-16 02:00 | NUR ---
POTASSIUM LEVEL 3.4,POTASSIUM CHLORIDE 20 MEQ PO ADMINISTERED,TOLERATED WELL, NO SOB NOTED
[2021-07-16 04:00] VITALS: BP 134/54
--- NOTE | 2021-07-16 04:00 | NUR ---
CLEANED AND REPOSITIONED THE PATIENT, NO SOB NOTED
[2021-07-16 05:35] LABS: APPEARANCE,SPUN,BODY FLUID CLEAR (CLEAR); APPEARANCE,UNSPUN,BODY FLUID SLIGHTLY HAZY (CLEAR); COLOR,BODY FLUID YELLOW (LT YELLOW); SPECIMENTYPE,BODY FLUID PLEURAL
[2021-07-16 05:36] LABS: POLYNUCLEAR, BODY FLUID 4 %; RBC, BODY FLUID 620 /cu. mm.; WBC, BODY FLUID 33 /cu. mm.
[2021-07-16 05:38] LABS: GLUCOSE,BODY FLUID 98 mg/dL
--- NOTE | 2021-07-16 06:00 | NUR ---
PATIENT ASLEEP,RESPIRATION EVEN AND UNLABORED,NO DISTRESS NOTED.
[2021-07-16 07:01] LABS: TOTAL VOLUME,BODY FLUID 1558 mL
[2021-07-16 07:18] LABS: BASOPHILS % (AUTO) 0.4 % (0.0-2.0); EOSINOPHILS # (AUTO) 0.1 K/uL (0-0.4); EOSINOPHILS % (AUTO) 0.9 % (0.0-4.0); HEMATOCRIT 33.1 % (36-48); HEMOGLOBIN 11.2 g/dL (12.0-16.0); LYMPHOCYTES % (AUTO) 16.4 % (20.5-51.1); MEAN CORPUSCULAR HEMOGLOBIN 35 pg (27-31); MEAN CORPUSCULAR HGB CONC 34 g/dL (33-37); MEAN CORPUSCULAR VOLUME 103.4 fL (80-94); MONOCYTES # (AUTO) 0.6 K/uL (0.8-1.0); MONOCYTES % (AUTO) 9.5 % (1.7-9.3); NEUTROPHILS # (AUTO) 4.4 K/uL (1.8-7.7); NEUTROPHILS % (AUTO) 72.8 % (42.2-75.2); PLATELET COUNT (AUTO) 163 K/uL (140-450); RED CELL DISTRIBUTION WIDTH 14.7 % (11.6-13.7); WHITE BLOOD COUNT (AUTO) 6.1 K/uL (4.8-10.8)
--- NOTE | 2021-07-16 07:25 | NUR ---
RECEIVED REPORT FROM PROFESSOR OF SPECIAL EDUCATION NURSE FOR CONTINUITY OF CARE. PT IS RESTING IN BED WITH NO SIGN OF DISTRESS. PT HAS A LEFT HAND 22 G IV SALINE LOCK. PT HAS A FABIANO AV SHUNT ACCESS FOR HEMODIALYSIS. PT IS ON 3 L/MIN NC. SKIN IS INTACT AND WARM. ALL SAFETY PRECAUTIONS ARE IN PLACE. WILL CONTINUE TO MONITOR.
[2021-07-16 07:37] LABS: ANION GAP 12.3 (8-16); CARBON DIOXIDE 30.6 mmol/L (21-32); CREATININE 3.5 mg/dL (0.6-1.3); POTASSIUM 3.9 mmol/L (3.5-5.1)
[2021-07-16 08:00] VITALS: BP 154/68
[2021-07-16] MEDS: SEVELAMER CARBONATE 800 MG TAB PO SCH ×3 (08:23→17:00)
[2021-07-16] MEDS: amLODIPine 5 MG TAB PO SCH (08:24)
[2021-07-16] MEDS: hydrALAZINE 25 MG TAB PO SCH ×2 (08:24→21:13)
[2021-07-16] MEDS: LOSARTAN 50 MG TAB PO SCH (08:24)
[2021-07-16] MEDS: ASCORBIC ACID 500 MG TAB PO SCH (08:25)
[2021-07-16] MEDS: ZINC SULF 220 MG CAP PO SCH (08:25)
[2021-07-16] MEDS: QUEtiapine FUMARATE 25 MG TAB PO SCH (08:25)
[2021-07-16] MEDS: ASPIRIN 81 MG TAB.CHEW PO SCH (08:25)
[2021-07-16] MEDS: PANTOPRAZOLE 40 MG TABEC PO SCH (08:26)
[2021-07-16] MEDS: VITAMIN D 400 IU TAB PO SCH (08:26)
[2021-07-16] MEDS: VIT-B COMP/VIT-C/FOLIC ACID 1 TAB PO SCH (08:26)
--- NOTE | 2021-07-16 09:10 | NUR ---
HD NURSE AT BEDSIDE.
[2021-07-16 12:00] VITALS: BP 110/53
--- NOTE | 2021-07-16 12:30 | NUR ---
SISTER (KAIDEN) AT BEDSIDE.
--- NOTE | 2021-07-16 12:30 | NUR ---
HEMODIALYSIS WAS COMPLETE. HD NURSE REMOVED 1600 ML. PT IS RESTING AT THIS MOMENT.
--- NOTE | 2021-07-16 13:10 | NUR ---
SEEN AND ASSESED BY DR. ASHFORD.
--- NOTE | 2021-07-16 13:58 | NUR ---
SEEN AND ASSESSED BY SWALLOW INSTITUTIONAL CUSTODIAN AND RECOMMENDED TO SWITCH PT TO MECHANICAL SOFT GROUND WITH THIN LIQUIDS. WILL NOTIFY .
--- NOTE | 2021-07-16 14:13 | NUR ---
CONTACTED DR. PALACIO VIA SECURED MESSAGING. PT DR. PALACIO ORDERS, PT WILL BE SWITCHED TO MECHANICAL SOFT GROUND W/ THING LIQUIDS.
[2021-07-16 16:00] VITALS: BP 117/53
--- NOTE | 2021-07-16 16:30 | NUR ---
CT CALLED TO VERIFY CT SCAN W AND W/O CONTRAST. CT TRIED REACHING DR. ASHFORD BUT COULD NOT MAKE CONTACT. CT WILL ATTEMPT TO CONDUCT CT SCAN W AND W/O CONTRAST SUNDAY (NEEDS TO BE DONE WITHIN 24H OF HD ACCORDING TO CT).
--- NOTE | 2021-07-16 17:00 | NUR ---
PT STARTED BLEEDING FROM RIGHT UA FISTULA MOMENTS AFTER HD. BLEEDING WAS CONTROLLED. SEEN BY DR. DAWKINS AND HE SAID HE WILL NOTIFY DIALYSIS MYERS RN TO NEXT TIME USE LEFT CHEST HD PORT ON PT. WILL CONTINUE TO MONITOR.
--- NOTE | 2021-07-16 19:25 | NUR ---
ENDORSED CARE TO INDUSTRIAL ENGINEERING PROFESSOR NURSE FOR CONTINUITY OF CARE.
[2021-07-16 20:00] VITALS: BP 136/48
[2021-07-16] MEDS: MIRTAZAPINE 15 MG TAB PO SCH (21:13)
[2021-07-16] MEDS: ATORVASTATIN 20 MG TAB PO SCH (21:13)
[2021-07-17] VITALS: BP 128/51
[2021-07-17] MEDS: PIPERACILLIN/TAZOBACTAM 2.25 GM in DEXTROSE 5% 50 ML IV SCH ×4 (00:17→17:56)
[2021-07-17 04:00] VITALS: BP 124/56
[2021-07-17 07:59] LABS: BASOPHILS % (AUTO) 0.9 % (0.0-2.0); EOSINOPHILS # (AUTO) 0.1 K/uL (0-0.4); EOSINOPHILS % (AUTO) 2.2 % (0.0-4.0); HEMOGLOBIN 10.7 g/dL (12.0-16.0); LYMPHOCYTES # (AUTO) 1.2 K/uL (2.5-16.5); LYMPHOCYTES % (AUTO) 22.5 % (20.5-51.1); MEAN CORPUSCULAR HEMOGLOBIN 35 pg (27-31); MEAN CORPUSCULAR HGB CONC 33 g/dL (33-37); MONOCYTES # (AUTO) 0.8 K/uL (0.8-1.0); MONOCYTES % (AUTO) 14.2 % (1.7-9.3); NEUTROPHILS # (AUTO) 3.2 K/uL (1.8-7.7); NEUTROPHILS % (AUTO) 60.2 % (42.2-75.2); PLATELET COUNT (AUTO) 167 K/uL (140-450); RED BLOOD CELL COUNT(AUTO) 3.08 MIL/uL (4.20-5.40); RED CELL DISTRIBUTION WIDTH 14.6 % (11.6-13.7); WHITE BLOOD COUNT (AUTO) 5.3 K/uL (4.8-10.8)
[2021-07-17 08:00] VITALS: BP 155/54
--- NOTE | 2021-07-17 08:00 | NUR ---
RECEIVED REPORT FROM [facility]. PT A/O X1. ITALIAN SPEAKING ONLY. NO SOB OR RESPIRATORY DISTRESS. HOB ELEVATED. DENIES PAIN. ON MECHANICAL SOFT/THIN LIQUIDS. IV TO SL. L IJ NOTED. R AV FISTULA NOTED WITH DRESSING. NO ACTIVE BLEEDING. NEEDS ALL MET AT THIS TIME. SAFETY MEASURES IN PLACE. WILL MONITOR CLOSELY.
[2021-07-17] MEDS: ASPIRIN 81 MG TAB.CHEW PO SCH (09:48)
[2021-07-17] MEDS: hydrALAZINE 25 MG TAB PO SCH ×2 (09:49→21:39)
[2021-07-17] MEDS: ASCORBIC ACID 500 MG TAB PO SCH (09:49)
[2021-07-17] MEDS: SEVELAMER CARBONATE 800 MG TAB PO SCH ×3 (09:49→17:00)
[2021-07-17] MEDS: VIT-B COMP/VIT-C/FOLIC ACID 1 TAB PO SCH (09:49)
[2021-07-17] MEDS: VITAMIN D 400 IU TAB PO SCH (09:50)
[2021-07-17] MEDS: LOSARTAN 50 MG TAB PO SCH (09:50)
[2021-07-17] MEDS: amLODIPine 5 MG TAB PO SCH (09:50)
[2021-07-17] MEDS: PANTOPRAZOLE 40 MG TABEC PO SCH (09:51)
[2021-07-17] MEDS: ZINC SULF 220 MG CAP PO SCH (09:51)
[2021-07-17] MEDS: QUEtiapine FUMARATE 25 MG TAB PO SCH (09:51)
[2021-07-17 11:21] LABS: ANION GAP 13.5 (8-16); CARBON DIOXIDE 27.3 mmol/L (21-32); CREATININE 2.6 mg/dL (0.6-1.3); POTASSIUM 3.8 mmol/L (3.5-5.1)
[2021-07-17 12:53] VITALS: BP 122/35
[2021-07-17 16:00] VITALS: BP 126/40
--- NOTE | 2021-07-17 17:33 | NUR ---
2RD INITIAL ASSESSMENT COMPLETED. PLEASE REFER TO NUTRITION ASSESSMENT UNDER CARE ACTIVITY FOR ESTIMATED NUTRITIONAL NEEDS. CONTINUE WITH RENAL MECHANICAL SOFT DIET. WHEN/IF MEDICALLY APPROPRIATE MAY ADVANCE TO RENAL REGULAR DIET. RD TO FOLLOW-UP IN 3-5 DAYS PATIENT IS MODERATE RISK. EUGENIE COOLEY RD
--- NOTE | 2021-07-17 19:45 | NUR ---
[facility]
[2021-07-17 20:00] VITALS: BP 131/69
--- NOTE | 2021-07-17 20:00 | NUR ---
RECEIVEDREPORT FROMAM NURSE FOR CONTINUITY OF CARE. PT AWAKE IN BED. RR EVEN AND UNLABORED WITH SYMMETRICAL CHEST RISE. ON O2 2L/NC. DENIES PAIN AT THIS TIME. AV FISTULA NOTED WITH (+) BRUIT AND THRILL. NO BLEEDING NOTED. LIJ CATHETYER INTACT, NO BLEEDING NOTED. L HAND 22G IV RUNNING NS @5CC/HR. CALL LIGHT WITHIN REACH. ALL SAFETY MEASURES IN PLACE.
[2021-07-17] MEDS: ATORVASTATIN 20 MG TAB PO SCH (21:39)
[2021-07-17] MEDS: MIRTAZAPINE 15 MG TAB PO SCH (21:41)
--- NOTE | 2021-07-17 22:00 | NUR ---
HS MEDS TAKEN CRUSHED IN APPLESAUCE WITH APPLE JUICE CHASER AFTER MUCH COAXING. IV ABX CONTINUES. ALL SAFETY MEASURES IN PLACE.
[2021-07-18] VITALS: BP 126/52
[2021-07-18] MEDS: PIPERACILLIN/TAZOBACTAM 2.25 GM in DEXTROSE 5% 50 ML IV SCH ×4 (00:41→17:50)
[2021-07-18 04:00] VITALS: BP 119/57
--- NOTE | 2021-07-18 06:00 | NUR ---
ZOSYN IVPB INFUSED. PT RESTING, AWAKE. REFUSED OFFERED PO FLUIDS. ALL SAFETY MEASURES IN PLACE. CONTINUE FREQ ROUNDS.
[2021-07-18 07:04] LABS: BASOPHILS % (AUTO) 0.7 % (0.0-2.0); EOSINOPHILS # (AUTO) 0.1 K/uL (0-0.4); EOSINOPHILS % (AUTO) 1.2 % (0.0-4.0); HEMATOCRIT 29.7 % (36-48); LYMPHOCYTES # (AUTO) 0.9 K/uL (2.5-16.5); LYMPHOCYTES % (AUTO) 19.7 % (20.5-51.1); MEAN CORPUSCULAR HEMOGLOBIN 35 pg (27-31); MEAN CORPUSCULAR HGB CONC 34 g/dL (33-37); MONOCYTES # (AUTO) 0.5 K/uL (0.8-1.0); MONOCYTES % (AUTO) 11.3 % (1.7-9.3); NEUTROPHILS # (AUTO) 3.1 K/uL (1.8-7.7); NEUTROPHILS % (AUTO) 67.1 % (42.2-75.2); PLATELET COUNT (AUTO) 165 K/uL (140-450); RED BLOOD CELL COUNT(AUTO) 2.91 MIL/uL (4.20-5.40); RED CELL DISTRIBUTION WIDTH 14.6 % (11.6-13.7); WHITE BLOOD COUNT (AUTO) 4.6 K/uL (4.8-10.8)
--- NOTE | 2021-07-18 07:15 | NUR ---
ENDORSED REPORT TO AM NURSE FOR CONTINUITY OF CARE.
--- NOTE | 2021-07-18 07:20 | NUR ---
RECEIVED REPORT FROM REGIONAL MARKETING DIRECTOR NURSE FOR CONTINUITY OF CARE. PT AWAKE IN BED, BREATHING SYMMETRICAL ON 2L NC. DENIES PAIN AT THIS TIME. FABIANO AV FISTULA NOTED WITH (+) BRUIT AND THRILL, NO BLEEDING NOTED. ALSO NOTED WITH LIJ CATHETER, NO BLEEDING NOTED. LEFT HAND 22G RUNNING NS AT 5CC/HR. CALL LIGHT WITHIN REACH. ALL SAFETY MEASURES IN PLACE.
[2021-07-18 08:00] VITALS: BP 110/90
[2021-07-18] MEDS: SEVELAMER CARBONATE 800 MG TAB PO SCH ×3 (08:00→17:00)
[2021-07-18] MEDS: amLODIPine 5 MG TAB PO SCH (09:00)
[2021-07-18] MEDS: ASCORBIC ACID 500 MG TAB PO SCH (09:00)
[2021-07-18] MEDS: PANTOPRAZOLE 40 MG TABEC PO SCH (09:00)
[2021-07-18] MEDS: hydrALAZINE 25 MG TAB PO SCH ×2 (09:00→21:45)
[2021-07-18] MEDS: ZINC SULF 220 MG CAP PO SCH (09:00)
[2021-07-18] MEDS: ASPIRIN 81 MG TAB.CHEW PO SCH (09:00)
[2021-07-18] MEDS: LOSARTAN 50 MG TAB PO SCH (09:00)
[2021-07-18] MEDS: QUEtiapine FUMARATE 25 MG TAB PO SCH (09:00)
[2021-07-18] MEDS: VIT-B COMP/VIT-C/FOLIC ACID 1 TAB PO SCH (09:00)
[2021-07-18] MEDS: VITAMIN D 400 IU TAB PO SCH (09:00)
--- NOTE | 2021-07-18 10:00 | NUR ---
PT REFUSED ALL AM PO MEDICATIONS DESPITE EXPLAINING RISK AND BENEFITS.
--- NOTE | 2021-07-18 11:02 | NUR ---
PT. WITH LOW ANKUSH SCALE AT MODERATE TO HIGH RISK, CONTINUE TO FOLLOW PRESSURE INJURY PREVENTION INTERVENTIONS. -POSITIONING: TURN AND REPOSITION PATIENT Q 2H OR SOONER USE PILLOWS TO KEEP BONY PROMINENCES FROM DIRECT CONTACT WITH SURFACES USE REPOSITIONING WEDGES TO PROVIDE 30-DEGREE ANGLE FOR SIDE LYING POSITIONS OFFLOADING OR FOAM DRESSING TO ALL TUBING TO PREVENT MEDICAL DEVICES RELATED PRESSURE INJURY -RE-EVALUATING AND MANAGING INCONTINENCE MONITOR SKIN CONDITION DURING POSITION CHANGE DO NOT MASSAGE REDNESS, BONY PROMINENCES FREQUENT JANINA-CARE AND PROVIDE BARRIER CREAMS PRN IF SOILING MOISTURE CONTROL BY OFFER BED QUIROGA/URINAL /ABSORBENT PAD TO WICK AND HOLD MOISTURE KEEP SKIN DRY AND PROTECT FROM FRICTION -MANAGE FRICTION/SHEAR/MOBILITY KEEP HOB AT THE LOWEST LEVEL OF ELEVATION NO MORE THAN 30 DEGREE UNLESS OTHERWISE CONTRAINDICATED USE LIFT SHEET OR TRANSFER DEVICE TO MOVE PATIENT AND PREVENT LATERAL SHEER. PROTECT HEELS, ELBOWS BONY PROMINENCES WITH SKIN BERRIES OR FOAM DRESSING IF EXPOSED TO FRICTION OFFLOAD BILATERAL HEELS BY PLACING PILLOWS UNDER CALVES AT ALL TIMES, UNLESS OTHERWISE CONTRAINDICATED -PRESSURE REDISTRIBUTION SURFACE THERAPY BLESSING ISOFLEX MATTRESS -NUTRITION: PLEASE FOLLOW RD RECOMMENDATIONS AND OFFER NUTRITION SUPPLEMENTS IF ORDERED. PLEASE CONTACT WOUND CARE NURSE FOR ANY QUESTION AND CHANGE OF WOUND CONDITION.
[2021-07-18 12:00] VITALS: BP 143/69
--- NOTE | 2021-07-18 13:00 | NUR ---
PT REFUSED RENVELA PO MEDICATION. PT AWAKE, ALERT WITH CONFUSION. BREATHING SYMMETRICAL ON 2L NC. DENIES PAIN AT THIS TIME.
[2021-07-18 16:00] VITALS: BP 154/68
--- NOTE | 2021-07-18 16:20 | NUR ---
INSERTED PERIPHERAL IV LINE ULTRASOUND GUIDED ON TODD 20G, TOLERATED WELL
--- NOTE | 2021-07-18 19:10 | NUR ---
ENDORSED PT TO SHUTDOWN PLANNER NURSE. PT FOR CT CHEST WITH CONTRAST TONIGHT, PT ASLEEP AND DIDN'T EAT DINNER YET, LAST PO INTAKE WAS DURING LUNCH, ENDORSED ALSO TO SHUTDOWN PLANNER NURSE.
--- NOTE | 2021-07-18 19:25 | NUR ---
RECEIVED PATIENT FROM AM NURSE FOR CONTINUITY OF CARE. PT IS STABLE
[2021-07-18 20:00] VITALS: BP 164/61
--- NOTE | 2021-07-18 20:00 | NUR ---
PATIENT WAS PICKED UP FOR CT, PATIENT IS AWAKE, VS WNL NO DISTRESS NOTED.
--- NOTE | 2021-07-18 20:15 | NUR ---
PATIENT CAME BACK FROM CT,TOLERATED WELL ,NO DISTRESS NOTED.
[2021-07-18] MEDS: ATORVASTATIN 20 MG TAB PO SCH (21:45)
[2021-07-18] MEDS: MIRTAZAPINE 15 MG TAB PO SCH (21:46)
[2021-07-19] VITALS: BP 181/50
--- NOTE | 2021-07-19 01:00 | NUR ---
PATIENT SLEEPING AT THIS TIME,RESPIRATIONS EVEN AND UNLABORED,ALL SAFETY MEASURES IN PLACE,NO DISTRESS NOTED.
[2021-07-19] MEDS: PIPERACILLIN/TAZOBACTAM 2.25 GM in DEXTROSE 5% 50 ML IV SCH (01:36)
[2021-07-19 04:00] VITALS: BP 179/41
--- NOTE | 2021-07-19 04:30 | NUR ---
PATIENT IS LYING ON BED, NO ANY COMPLAIN OF PAIN OR SOB NOTED, ALL DUE MEDS ARE GIVEN DR ORDER, CALL LIGHT IS WITHIN THE REACH ,WILL CONTINUE TO MONITOR
--- NOTE | 2021-07-19 06:00 | NUR ---
LAST SCHEDULE DOSE OF ANTIBIOTICS ZOSYN ADMINISTERED AT 0600 , NO REACTIONS NOTED
[2021-07-19 06:46] LABS: BASOPHILS % (AUTO) 0.6 % (0.0-2.0); EOSINOPHILS # (AUTO) 0.2 K/uL (0-0.4); EOSINOPHILS % (AUTO) 3.1 % (0.0-4.0); HEMATOCRIT 31.2 % (36-48); HEMOGLOBIN 10.7 g/dL (12.0-16.0); LYMPHOCYTES # (AUTO) 1.3 K/uL (2.5-16.5); LYMPHOCYTES % (AUTO) 26.5 % (20.5-51.1); MEAN CORPUSCULAR HEMOGLOBIN 35 pg (27-31); MEAN CORPUSCULAR HGB CONC 34 g/dL (33-37); MONOCYTES # (AUTO) 0.4 K/uL (0.8-1.0); MONOCYTES % (AUTO) 9.3 % (1.7-9.3); NEUTROPHILS # (AUTO) 2.9 K/uL (1.8-7.7); NEUTROPHILS % (AUTO) 60.5 % (42.2-75.2); PLATELET COUNT (AUTO) 173 K/uL (140-450); RED BLOOD CELL COUNT(AUTO) 3.06 MIL/uL (4.20-5.40); RED CELL DISTRIBUTION WIDTH 14.6 % (11.6-13.7); WHITE BLOOD COUNT (AUTO) 4.9 K/uL (4.8-10.8)
[2021-07-19 07:11] LABS: ANION GAP 15.8 (8-16); CARBON DIOXIDE 28.9 mmol/L (21-32); POTASSIUM 3.7 mmol/L (3.5-5.1)
--- NOTE | 2021-07-19 07:40 | NUR ---
RECEIVED PT AWAKE, AOX1, NORTH KOREAN SPEAKING, ON ROOM AIR, WITH LEFT UPPER CHEST PERMACATHETER IN PLACE, FABIANO AV SHUNT NON-FUNCTIONING, TODD IV LINE G. 20 ON SALINE LOCK, AND ON THE LEFT HAND G. 22 ON TKO, NO SIGN OF DISTRESS NOTED AND WILL MONITOR MONITOR PT.
[2021-07-19 08:00] VITALS: BP 169/82
[2021-07-19 08:34] LABS: CREATININE 4.8 mg/dL (0.6-1.3)
[2021-07-19] MEDS: LOSARTAN 50 MG TAB PO SCH (09:00)
[2021-07-19] MEDS: hydrALAZINE 25 MG TAB PO SCH ×2 (09:00→22:05)
[2021-07-19] MEDS: amLODIPine 5 MG TAB PO SCH (09:00)
--- NOTE | 2021-07-19 09:00 | NUR ---
DIALYSIS WAS STARTED TO PT NOW.
[2021-07-19] MEDS: ZINC SULF 220 MG CAP PO SCH (09:07)
[2021-07-19] MEDS: ASPIRIN 81 MG TAB.CHEW PO SCH (09:08)
[2021-07-19] MEDS: ASCORBIC ACID 500 MG TAB PO SCH (09:08)
[2021-07-19] MEDS: SEVELAMER CARBONATE 800 MG TAB PO SCH ×3 (09:08→17:41)
[2021-07-19] MEDS: VITAMIN D 400 IU TAB PO SCH (09:08)
[2021-07-19] MEDS: QUEtiapine FUMARATE 25 MG TAB PO SCH (09:09)
[2021-07-19] MEDS: PANTOPRAZOLE 40 MG TABEC PO SCH (09:09)
[2021-07-19] MEDS: VIT-B COMP/VIT-C/FOLIC ACID 1 TAB PO SCH (09:09)
[2021-07-19 12:00] VITALS: BP 138/56
--- NOTE | 2021-07-19 12:15 | NUR ---
DIALYSIS WAS FINISHED NOW, 1L OUTPUT, PT'S BP IS 128/79.
--- NOTE | 2021-07-19 15:15 | NUR ---
PT WAS CLEANED AND REPOSITIONED NOW.
[2021-07-19 16:00] VITALS: BP 152/63
--- NOTE | 2021-07-19 19:12 | NUR ---
ENDORSED PT TO NIGHT RN FOR CONTINUITY OF CARE, PT IS STABLE AT THIS TIME.
--- NOTE | 2021-07-19 19:30 | NUR ---
RECEIVED PT FROM AM NURSE FOR CONTINUITY OF CARE.PT IS STABLE
[2021-07-19 20:00] VITALS: BP 132/46
--- NOTE | 2021-07-19 21:30 | NUR ---
ALL MEDS GIVEN, RESPIRATIONS EVEN AND UNLABORED, NO DISTRESS NOTED
[2021-07-19] MEDS: MIRTAZAPINE 15 MG TAB PO SCH (22:04)
[2021-07-19] MEDS: ATORVASTATIN 20 MG TAB PO SCH (22:05)
[2021-07-19 22:35] LABS: ALBUMIN,BODY FLUID 1.6 g/dL
--- NOTE | 2021-07-19 23:30 | NUR ---
PT IS SLEEPING AT THIS TIME, RESPUIRATIONS EVEN AND UNLABORED ,NO DISTRESS NOTED.
--- NOTE | 2021-07-20 00:35 | NUR ---
REPORT RECEIVED FROM NIGHTSINFT DAVONTE TRAORE. CARE TAKEN OVER AT THIS TIME. WILL CONTINUE TO MONITOR PT.
--- NOTE | 2021-07-20 03:41 | NUR ---
PT SLEEPING. NO DISTRESS NOTED. WILL CONTINUE TO MONITOR.
[2021-07-20 04:00] VITALS: BP 136/46
[2021-07-20] MEDS: ATORVASTATIN 20 MG TAB PO SCH (04:59)
[2021-07-20] MEDS: MIRTAZAPINE 15 MG TAB PO SCH (04:59)
--- NOTE | 2021-07-20 06:20 | NUR ---
PT SLEEPING. NO S/S OF PAIN OR DISTRESS. WILL CONTINUE TO MONITOR.
[2021-07-20 06:40] LABS: BASOPHILS % (AUTO) 0.9 % (0.0-2.0); EOSINOPHILS # (AUTO) 0.2 K/uL (0-0.4); EOSINOPHILS % (AUTO) 4.7 % (0.0-4.0); HEMATOCRIT 28.1 % (36-48); HEMOGLOBIN 9.6 g/dL (12.0-16.0); LYMPHOCYTES # (AUTO) 0.8 K/uL (2.5-16.5); LYMPHOCYTES % (AUTO) 19.4 % (20.5-51.1); MEAN CORPUSCULAR HEMOGLOBIN 35 pg (27-31); MEAN CORPUSCULAR HGB CONC 34 g/dL (33-37); MEAN CORPUSCULAR VOLUME 101.5 fL (80-94); MONOCYTES # (AUTO) 0.4 K/uL (0.8-1.0); MONOCYTES % (AUTO) 10.5 % (1.7-9.3); NEUTROPHILS # (AUTO) 2.5 K/uL (1.8-7.7); NEUTROPHILS % (AUTO) 64.5 % (42.2-75.2); PLATELET COUNT (AUTO) 158 K/uL (140-450); RED BLOOD CELL COUNT(AUTO) 2.77 MIL/uL (4.20-5.40); RED CELL DISTRIBUTION WIDTH 14.3 % (11.6-13.7); WHITE BLOOD COUNT (AUTO) 3.9 K/uL (4.8-10.8)
[2021-07-20 06:45] LABS: CARBON DIOXIDE 25.1 mmol/L (21-32); CREATININE 3.5 mg/dL (0.6-1.3); POTASSIUM 4.1 mmol/L (3.5-5.1)
--- NOTE | 2021-07-20 06:48 | NUR ---
WILL ENDORSE CARE TO COY ARAUZ.
--- NOTE | 2021-07-20 07:30 | NUR ---
RECEIVED BEDSIDE REPORT FROM DIAGRAMMER NURSE FOR CONTINUITY OF CARE. PT IS STABLE. ASLEEP WITH CHEST RISE AND FALL SYMMETRICAL. ON RA WITH BREATHING UNLABORED. INCONTINENT OF THE BOWEL AND BLADDER. SKIN IS WARM, DRY, AND INTACT. IV IS IN THE LEFT WRIST 22 GAUGE SALINE LOCKED. RIGHT UA FISTULA AND LEFT IJ CÉSAR IN PLACE. PT IS STABLE. PLAN OF CARE DISCUSSED.
[2021-07-20 08:00] VITALS: BP 149/44
[2021-07-20] MEDS: SEVELAMER CARBONATE 800 MG TAB PO SCH ×3 (08:00→17:00)
--- NOTE | 2021-07-20 08:21 | NUR ---
ENDORSED TO CHRISTINA ARAUZ FOR CONTINUITY OF CARE. PT IS STABLE. PLAN OF CARE DISCUSSED.
--- NOTE | 2021-07-20 08:22 | NUR ---
RECEIVED BEDSIDE REPORT FROM WEBBING SUPERVISOR NURSE FOR CONTINUITY OF CARE. PT IS AOX3 AND NO S/S OF DISTRESS NOTED. BREATHING IS EVEN AND UNLABORED. DENIES PAIN. ON RA. PT IS STABLE.
[2021-07-20] MEDS: ASPIRIN 81 MG TAB.CHEW PO SCH (09:00)
[2021-07-20] MEDS: amLODIPine 5 MG TAB PO SCH (09:00)
[2021-07-20] MEDS: QUEtiapine FUMARATE 25 MG TAB PO SCH (09:00)
[2021-07-20] MEDS: ASCORBIC ACID 500 MG TAB PO SCH (09:00)
[2021-07-20] MEDS: VIT-B COMP/VIT-C/FOLIC ACID 1 TAB PO SCH (09:00)
[2021-07-20] MEDS: VITAMIN D 400 IU TAB PO SCH (09:00)
[2021-07-20] MEDS: PANTOPRAZOLE 40 MG TABEC PO SCH (09:00)
[2021-07-20] MEDS: LOSARTAN 50 MG TAB PO SCH (09:00)
[2021-07-20] MEDS: ZINC SULF 220 MG CAP PO SCH (09:00)
[2021-07-20] MEDS: hydrALAZINE 25 MG TAB PO SCH (09:00)
[2021-07-20] MEDS ORDERED: ACET-1182 PO (10:20)
[2021-07-20] MEDS ORDERED: QUET25TA46 PO (10:20)
[2021-07-20] MEDS ORDERED: ASPI81CT95 PO (10:20)
[2021-07-20] MEDS ORDERED: BUDE0.25 NEB (10:20)
[2021-07-20] MEDS ORDERED: ALBU3SOL83 IH (10:20)
[2021-07-20] MEDS ORDERED: ZINC220C29 PO (10:20)
[2021-07-20] MEDS ORDERED: PHOS1PDR4 PO (10:20)
[2021-07-20] MEDS ORDERED: MIRT-33 PO (10:20)
[2021-07-20] MEDS ORDERED: HYDR-4420 PO (10:20)
[2021-07-20] MEDS ORDERED: MELA3TAB21 PO (10:20)
[2021-07-20] MEDS ORDERED: VITD400 PO (10:20)
[2021-07-20] MEDS ORDERED: AMLO-3 PO (10:20)
[2021-07-20] MEDS ORDERED: VITC500 PO (10:20)
[2021-07-20] MEDS ORDERED: LOSA50TA1 PO (10:20)
[2021-07-20] MEDS ORDERED: MAGN400T61 PO (10:20)
[2021-07-20] MEDS ORDERED: SEVE800T6 PO (10:20)
[2021-07-20] MEDS ORDERED: ATOR20TA40 PO (10:20)
--- NOTE | 2021-07-20 12:00 | NUR ---
PT REFUSED HER MEDS EVEN IN [facility]. PT IS AOX3 AND NO S/S OF DISTRESS NOTED. BREATHING IS EVEN AND UNLABORED. DENIES PAIN. ON RA. PT IS STABLE.
[2021-07-20 15:10] VITALS: BP 149/44
[2021-07-20] MEDS: hydrALAZINE 20 MG/ML VIAL IVP PRN (15:57)
[2021-07-20 16:57] VITALS: BP 148/59
--- NOTE | 2021-07-20 18:30 | NUR ---
PT REP AT [facility] WAS CALLED AROUND 1600 AND THEY STATED THEY WERE VERY BUSY AND TO JUST SEND OVER PT AFTER 1730. I ATTEMPTED CALLS ABOUT 6 TIMES TO [facility] AND NO ANSWER. PT WAS PICKED AND TRANSFERRED OVER PT WAS [id number] BY AT [facility]. PT IVS WERE TAKEN OUT AND INTACT. PT WAS STABLE. DC PAPERS AND REPORTS WERE GIVEN TO TRANSPORT TEAM.
== END 2021-07-20 18:35 | DRG 291 ==
LOC: MED 16:24 → MTU 17:54
PROVIDERS: ADMIT Hospitalist; ATTEND Hospitalist
PROC: 5A09457 Assistance with Respiratory Ventilation, 24-96 Consecutive Hours, Continuous Positive Airway Pressure (ICD-10-PCS; 2021-07-13)
PROC: 5A1D70Z Performance of Urinary Filtration, Intermittent, Less than 6 Hours Per Day (ICD-10-PCS; 2021-07-14)
PROC: 0W9B3ZZ Drainage of Left Pleural Cavity, Percutaneous Approach (ICD-10-PCS; principal; 2021-07-15)
PROC: 5A1D70Z Performance of Urinary Filtration, Intermittent, Less than 6 Hours Per Day (ICD-10-PCS; 2021-07-16)
PROC: 5A1D70Z Performance of Urinary Filtration, Intermittent, Less than 6 Hours Per Day (ICD-10-PCS; 2021-07-19)
DX: I13.2 Hypertensive heart and chronic kidney disease with heart failure and with stage 5 chronic kidney disease, or end stage renal disease (principal); J96.01 Acute respiratory failure with hypoxia; N18.6 End stage renal disease; N17.0 Acute kidney failure with tubular necrosis; J18.9 Pneumonia, unspecified organism; I50.23 Acute on chronic systolic (congestive) heart failure; I69.354 Hemiplegia and hemiparesis following cerebral infarction affecting left non-dominant side; E44.1 Mild protein-calorie malnutrition; E46 Unspecified protein-calorie malnutrition; N39.0 Urinary tract infection, site not specified; D63.1 Anemia in chronic kidney disease; R13.10 Dysphagia, unspecified; Z20.822 Contact with and (suspected) exposure to COVID-19; F03.90 Unspecified dementia, unspecified severity, without behavioral disturbance, psychotic disturbance, mood disturbance, and anxiety; F25.9 Schizoaffective disorder, unspecified; I70.90 Unspecified atherosclerosis; I27.20 Pulmonary hypertension, unspecified; E11.22 Type 2 diabetes mellitus with diabetic chronic kidney disease; Z99.2 Dependence on renal dialysis; Z79.1 Long term (current) use of non-steroidal anti-inflammatories (NSAID); Z79.899 Other long term (current) drug therapy; Z68.20 Body mass index [BMI] 20.0-20.9, adult
CPT/HCPCS: 36415; 36600; 71045; 71046; 71250; 71270; 76604; 76942; 80048; 80053; 81001; 82550; 82553; 82803; 82945; 83605; 83735; 83880; 84100; 84157; 84484; 85025; 85610; 85730; 87040; 87070; 87075; 87081; 87086; 87205; 89051; 92526; 93005; 94640; 96365; 96367; 99291; J0360; J0696; J1644; J2001; J2543; J3370; J7060; Q0092; Q9967

== ENCOUNTER 2021-08-16 09:41 | Inpatient (IN) | payer OTHER ==
--- NOTE | 2021-08-15 19:30 | NUR ---
RECEIVED ENDORSEMENT FROM RUBI ARAUZ DAYSDEFT NURSE FOR CONTINUITY OF CARE. PT LYING BED SHE IS AOX1 DROWSY BUT AROUSABLE TO NAME AND LIGHT SHAKING. SHE HAS 2 LITERS VIA N/C AND IS BEDBOUND, DUE TO SEVERE GENERALIZED WEAKNESS. PT ALSO HAS A LEFT SUBCLAVIAN TUNNEL CATHETER AND A RIGHT UPPER ARM AV SHUNT, THRILL AND BRUIT FELT. PT RECEIVING HD AT BEDSIDE AT THIS TIME. Addendum: 08/17/21 at 0002 by Catarina Agrawal RN WRONG DATE SHOULD BE 08/16/21 AT 1930
[~2021-08-16] VITALS: Ht 160 cm; Wt 44.9 kg
[~2021-08-16 09:41] MED LIST changes: +ACET-1182 PO; -ALBU2.5V IH; +ALBU3SOL83 IH; +AMLO-3 PO; -AMLO5TAB PO; -ASCO500T95 PO; -ASPI-1205 PO; +ASPI81CT95 PO; -ATI.5 PO; +ATOR20TA40 PO; -ATOR40TA PO; +BUDE0.25 NEB; -CHOL100013 PO; +HYDR-4420 PO; -HYDR-734 PO; +MAGN400T61 PO; +MELA3TAB21 PO; -MELA5TAB6 PO; +MIRT-33 PO; -MIRT-91 PO; +PHOS1PDR4 PO; +VITC500 PO; +VITD400 PO; -ZINC220C28 PO; +ZINC220C29 PO
--- NOTE | 2021-08-16 09:41 | NUR ---
NEREYDA ALS TO ER BED 2
[2021-08-16 09:48] VITALS: BP 146/66
--- NOTE | 2021-08-16 10:11 | NUR ---
LAB BEDSIDE COLLECTING BLOODWORK
--- NOTE | 2021-08-16 10:11 | NUR ---
RT BEDSIDE COLLECTING ABG
[2021-08-16 10:49] LABS: BASOPHILS % (AUTO) 0.2 % (0.0-2.0); EOSINOPHILS # (AUTO) 0.1 K/uL (0-0.4); EOSINOPHILS % (AUTO) 1.4 % (0.0-4.0); HEMATOCRIT 32.5 % (36-48); HEMOGLOBIN 10.8 g/dL (12.0-16.0); LYMPHOCYTES # (AUTO) 0.5 K/uL (2.5-16.5); LYMPHOCYTES % (AUTO) 10.1 % (20.5-51.1); MEAN CORPUSCULAR HEMOGLOBIN 35 pg (27-31); MEAN CORPUSCULAR HGB CONC 33 g/dL (33-37); MEAN CORPUSCULAR VOLUME 104.8 fL (80-94); MONOCYTES # (AUTO) 0.3 K/uL (0.8-1.0); MONOCYTES % (AUTO) 6.5 % (1.7-9.3); NEUTROPHILS # (AUTO) 4.3 K/uL (1.8-7.7); NEUTROPHILS % (AUTO) 81.8 % (42.2-75.2); PLATELET COUNT (AUTO) 154 K/uL (140-450); RED CELL DISTRIBUTION WIDTH 15.7 % (11.6-13.7); WHITE BLOOD COUNT (AUTO) 5.3 K/uL (4.8-10.8)
[2021-08-16 11:21] LABS: PROTHROMBIN TIME 13.6 secs (10.8-13.4)
[2021-08-16 11:22] LABS: ALBUMIN 2.9 g/dL (3.4-5.0); ANION GAP 16.8 (8-16); CARBON DIOXIDE 29.1 mmol/L (21-32); POTASSIUM 4.9 mmol/L (3.5-5.1); TOTAL BILIRUBIN 0.7 mg/dL (0.0-1.0)
[2021-08-16] MEDS ORDERED: ATI.5 PO (11:33)
--- NOTE | 2021-08-16 11:33 | NUR ---
[facility] REC COMPLETED FOR PATIENT
[2021-08-16] MEDS ORDERED: ONDANSETRON 4 MG/2 ML VIAL IM/IVP PRN (12:00)
[2021-08-16] MEDS ORDERED: ACETAMINOPHEN 325 MG TAB PO PRN ×3 (12:00→15:55)
[2021-08-16] MEDS ORDERED: DOCUSATE SODIUM 100 MG GELCAP PO PRN ×2 (12:00→15:55)
--- NOTE | 2021-08-16 12:33 | NUR ---
Patient will be admitted to care of DR. GRANADOS. Admited to TELE. Will go to room 110B. Belongings list completed. Report to DAVONTE VENEGAS. PT TAKEN VIA SIVA WITH DAVONTE LINDA AND DAVONTE AYOUB
[2021-08-16] MEDS ORDERED: MELATONIN 3 MG TAB PO PRN (12:35)
[2021-08-16 12:45] VITALS: BP 181/87
--- NOTE | 2021-08-16 12:50 | NUR ---
RECEIVED PT FROM ED VIA GURNEY, BEDSIDE REPORT GIVEN BY MADDI ARAUZ. PT AWAKE BUT NON-VERBAL, WITHDRAWS TO PAIN. ON 2L NC SATING AT 96% NOTED TACHYPNEIC WITH SHALLOW BREATHS. IV LINE ON LEFT WRIST 22G ON SALINE LOCK. NO EDEMA NOTED. PER REPORT PT HAS LEFT HUMERUS FRACTURE FROM SNF. FISTULA/SHUNT ON FABIANO WITH (+) BRUIT AND THRILL. ALSO NOTED WITH LEFT UPPER CHEST TUNNEL HD CATHETER, NO BLEEDING NOTED. PT SEEN BY DR BEE AT BEDSIDE. DR BEE AND DR GRANADOS MADE AWARE OF ELEVATED BP [id number] [id number] SKIN ASSESSMENT DONE, SKIN INTACT. CHANGED PT'S GOWN AND CLEANED PT, HAD SMALL BM. DR BEE ALSO MADE AWARE OF TROPONIN LEVEL 425. BED PLACED ON LOW POSITION. BRAKES ON. ALL SAFETY MEASURES IN PLACE.
[2021-08-16 13:18] LABS: MAGNESIUM 2.5 mg/dL (1.8-2.4); PHOSPHORUS 6.1 mg/dL (2.5-4.9); THYROID STIMULATING HORMONE 4.62 uIU/mL (0.34-3.74)
[2021-08-16] MEDS: ALBUTEROL SULFATE/IPRATROPIU 3 ML SOL IH SCH ×3 (14:15→22:39)
--- NOTE | 2021-08-16 14:50 | NUR ---
DIALYSIS NURSE MADE AWARE OF DIALYSIS ORDER FOR TODAY
[2021-08-16] MEDS: hydrALAZINE 20 MG/ML VIAL IVP PRN (14:58)
[2021-08-16] MEDS ORDERED: hydrALAZINE 20 MG/ML VIAL IVP SCH (15:00)
--- NOTE | 2021-08-16 15:05 | NUR ---
PRN HYDRALAZINE ALREADY GIVEN AT 1458. WILL MONITOR.
[2021-08-16] MEDS ORDERED: SODIUM PHOS / POTASSIUM PHOS 1 PKT PDR PO PRN (15:55)
[2021-08-16] MEDS ORDERED: MORPHINE SULFATE 2 MG/ML SYR IVP PRN (15:55)
[2021-08-16] MEDS ORDERED: ZOLPIDEM 5 MG TAB PO PRN (15:55)
[2021-08-16] MEDS ORDERED: POTASSIUM CHLORIDE 10 MEQ TABER PO PRN (15:55)
[2021-08-16] MEDS ORDERED: ONDANSETRON 4 MG/2 ML VIAL IVP PRN (15:55)
[2021-08-16] MEDS ORDERED: MAG SULF 2000 MG/WATER PREMIX 50 ML IV PRN (15:55)
[2021-08-16] MEDS ORDERED: HYDROcodone/APAP 5/325 MG 1 TAB TAB PO PRN (15:55)
[2021-08-16] MEDS ORDERED: LORazepam 2 MG/ML VIAL IM/IVP PRN (15:55)
[2021-08-16 16:00] VITALS: BP 152/71
[2021-08-16] MEDS: SEVELAMER CARBONATE 800 MG TAB PO SCH (17:00)
--- NOTE | 2021-08-16 17:22 | NUR ---
SEEN BY DR BURGOS (STEAM CLOTHES PRESS OPERATOR) NO NEW ORDER MADE AT THIS TIME
--- NOTE | 2021-08-16 17:23 | NUR ---
CALLED DAUGHTER ABIGAIL [phone] [phone] BUT DIDN'T ANSWER, LEFT MESSAGE
--- NOTE | 2021-08-16 17:30 | NUR ---
PT RECEIVING HEMODIALYSIS AT THIS TIME
--- NOTE | 2021-08-16 19:26 | NUR ---
ENDORSED PT TO TUNNEL DRIER OPERATOR NURSE, PT STILL UNDERGOING DIALYSIS AT THIS TIME
--- NOTE | 2021-08-16 19:30 | NUR ---
RECEIVED ENDORSEMENT FROM RUBI RN DAYSHIFT NURSE FOR CONTINUITY OF CARE. PT LYING BED SHE IS AOX1 DROWSY BUT AROUSABLE TO NAME AND LIGHT SHAKING. SHE HAS 2 LITERS VIA N/C AND IS BEDBOUND, DUE TO SEVERE GENERALIZED WEAKNESS. PT ALSO HAS A LEFT SUBCLAVIAN TUNNEL CATHETER AND A RIGHT UPPER ARM AV SHUNT, THRILL AND BRUIT FELT. PT RECEIVING HD AT BEDSIDE AT THIS TIME.
[2021-08-16 20:00] VITALS: BP 147/67
--- NOTE | 2021-08-16 20:30 | NUR ---
HD COMPLETED 3 LITERS OUT, V/S FOLLOWS: T 97.1 P 76 R 16 B/P 147/67 02 98% ON 2 LITERS VIA N/C. ALL ORDERED PRECAUTIONS IN PLACE.
[2021-08-16] MEDS: MIRTAZAPINE 15 MG TAB PO SCH (21:00)
[2021-08-16] MEDS: ATORVASTATIN 20 MG TAB PO SCH (21:00)
--- NOTE | 2021-08-16 21:15 | NUR ---
ORDERED LIPITOR AND REMERON HELD DUE TO PT BEING NPO AND AWAITING SWALLOW EVALUATION.
--- NOTE | 2021-08-16 22:30 | NUR ---
CONTACTED PRIMARY MD GRANADOS REGARDING PT LATEST TROPONIN LEVEL OF 500. NEW ORDER NOTED FOR HEPARIN 5000 UNITS SQ NOW AND SCHEDULED BID. PT WAS GIVEN HER X1 HEPARIN SQ IN THE ABDOMEN. PT WAS ALSO TURNED, CHANGED AND REPOSITIONED IN BED. ALL ORDERED PRECAUTIONS IN PLACE.
--- NOTE | 2021-08-16 23:00 | NUR ---
PT WAS GIVEN ORDERED NEBULIZER TREATMENT AT BEDSIDE. LUNG SOUNDS DIMINISHED WITH BASE CRACKLES. PT NOTED WITH SHALLOW BREATHING AND USE OF ACCESSORY MUSCLES.PT HAS 2 LITERS VIA N/C. RUNNING.
--- NOTE | 2021-08-16 23:44 | NUR ---
TROPONIN BLOOD DRAW AT BEDSIDE.
[2021-08-17] VITALS: BP 126/68
--- NOTE | 2021-08-17 00:15 | NUR ---
LAB CALLED TROPONIN LEVEL IS NOW 405 WHICH IS TRENDING DOWN.
--- NOTE | 2021-08-17 01:30 | NUR ---
RT CHECKED PT 02 WENT DOWN TO 84, RT BUMPED UP 02 TO 4 LITERS VIA N/C.
[2021-08-17] MEDS: ALBUTEROL SULFATE/IPRATROPIU 3 ML SOL IH SCH ×6 (02:56→22:28)
--- NOTE | 2021-08-17 03:01 | NUR ---
NEB TREATMENT AT BEDSIDE.
[2021-08-17 04:00] VITALS: BP 130/70
--- NOTE | 2021-08-17 05:21 | NUR ---
ROUNDS DONE, HAD A DIFFICULTY WITH GETTING 02 READING. PT 02 WAS IN THE 80'S PLACED PT ON 5 LITERS RT PLACED PT ON MASK AT 10 LITERS. WILL CONTINUE TO MONITOR.
--- NOTE | 2021-08-17 05:32 | NUR ---
PT WAS LATHARGIC. SATURATION WAS UNREADABLE DUE TO LOW PERFUSION. REPLACED NASAL CANNULA WITH SIMPLE MASK AT 10 L. TITRATED TO 6L PLACED. PULSE OX ON RIGHT EAR. SATURATION IS 99%.
--- NOTE | 2021-08-17 05:32 | NUR ---
RT PLACED PT ON 6 LITERS VIA MASK.
[2021-08-17 06:50] LABS: BASOPHILS % (AUTO) 0.8 % (0.0-2.0); EOSINOPHILS # (AUTO) 0.1 K/uL (0-0.4); EOSINOPHILS % (AUTO) 1.1 % (0.0-4.0); HEMATOCRIT 32.4 % (36-48); LYMPHOCYTES # (AUTO) 0.7 K/uL (2.5-16.5); MEAN CORPUSCULAR HEMOGLOBIN 35 pg (27-31); MEAN CORPUSCULAR HGB CONC 34 g/dL (33-37); MEAN CORPUSCULAR VOLUME 103.1 fL (80-94); MONOCYTES # (AUTO) 0.5 K/uL (0.8-1.0); NEUTROPHILS # (AUTO) 3.6 K/uL (1.8-7.7); NEUTROPHILS % (AUTO) 73.1 % (42.2-75.2); PLATELET COUNT (AUTO) 147 K/uL (140-450); RED BLOOD CELL COUNT(AUTO) 3.14 MIL/uL (4.20-5.40); RED CELL DISTRIBUTION WIDTH 15.5 % (11.6-13.7); WHITE BLOOD COUNT (AUTO) 4.9 K/uL (4.8-10.8)
[2021-08-17 07:05] LABS: ANION GAP 11.2 (8-16); CARBON DIOXIDE 32.3 mmol/L (21-32); CREATININE 3.1 mg/dL (0.6-1.3); POTASSIUM 3.5 mmol/L (3.5-5.1)
[2021-08-17 07:11] LABS: MAGNESIUM 2.3 mg/dL (1.8-2.4); PHOSPHORUS 4.5 mg/dL (2.5-4.9)
--- NOTE | 2021-08-17 07:20 | NUR ---
RECEIVED REPORT FROM BULL FIDDLE PLAYER NURSE FOR CONTINUITY OF CARE. PT IN BED, AWAKE, NON VERBAL, APPEARS LETHARGIC. ON 6L MASK SATING AT 99% SHALLOW BREATHS AND TACHYPNEIC. HOB ELEVATED. FLACC O. WITH LIJ TUNNELED HD CATHETER AND FABIANO SHUNT WITH (+) BRUIT AND THRILL. LEFT WRIST 22G ON SALINE LOCK. BED ON LOW POSITION, BRAKES ON. ALL SAFETY MEASURES IN PLACE.
--- NOTE | 2021-08-17 07:41 | NUR ---
RT JUST FINISHED ADMINISTERING BREATHING TREATMENT, PT NOW ON 2L NC AND SATING AT 100% WILL CONTINUE TO MONITOR
[2021-08-17 08:00] VITALS: BP 180/88
[2021-08-17] MEDS: SEVELAMER CARBONATE 800 MG TAB PO SCH ×3 (08:00→17:00)
[2021-08-17] MEDS: hydrALAZINE 20 MG/ML VIAL IVP PRN (08:36)
[2021-08-17] MEDS: ASPIRIN 81 MG TAB.CHEW PO SCH (08:44)
[2021-08-17] MEDS: VITAMIN D 400 IU TAB PO SCH (08:45)
[2021-08-17] MEDS: VIT-B COMP/VIT-C/FOLIC ACID 1 TAB PO SCH (08:45)
[2021-08-17] MEDS: amLODIPine 5 MG TAB PO SCH (08:45)
--- NOTE | 2021-08-17 08:45 | NUR ---
PRN HYDRALAZINE GIVEN FOR BP 180/88. ALL PO MEDS NOT GIVEN, PT NPO PENDING SWALLOW EVAL. PT ON 2L NC AT THIS TIME SATING BETWEEN 93-100% WILL CONTINUE TO MONITOR
[2021-08-17] MEDS ORDERED: VIT-B COMP/VIT-C/FOLIC ACID 1 TAB PO SCH (09:00)
--- NOTE | 2021-08-17 10:15 | NUR ---
SPOKE WITH KARLA WEB SOLUTIONS ARCHITECT FROM [facility] REGARDING UPDATE ON PT
[2021-08-17 12:00] VITALS: BP 146/72
--- NOTE | 2021-08-17 13:37 | NUR ---
PT SEEN BY SPEECH THERAPIST AND RECOMMENDED PUREE DIET WITH THIN LIQUIDS, DR GRANADOS MADE AWARE, ORDERED TO CHANGE DIET
--- NOTE | 2021-08-17 14:15 | NUR ---
DC PLANNING PATIENT IS A 66 YEAR OLD FEMALE ADMITTED ON 08/16/2021 TO [facility]/ED DUE TO SHORTNESS OF BREATH. PATIENT HAS MEDICAL HISTORY OF PMHX OF ESRD(HD TTS),CAD, DEMENTIA, HISTORY OF CVA (L SIDE EULA PARENTHESIS),WHO WAS BROUGHT IN FROM [facility]. SW ATTEMPTED TO MET WITH PATIENT AT BEDSIDE TO DISCUSS AND GATHER HER COLLATERAL INFORMATION. PATIENT IS NON-VERBAL AND UNABLE TO PROVIDE HER OWN INFORMATION. SW ATTEMPTED TO CALL PATIENTS DAUGHTER ABIGAIL AT , NO ANSWER AND SW LEFT HER A VOICE MAIL MESSAGE WITH REQUEST FOR A CALL BACK TO DIRECT CONTACT NUMBER LEFT IN FOR ABIGAIL. SW CALL SNF AT SPOKE WITH MILO AT [facility], TO DISCUSS AND GATHER PATIENT'S INFORMATION. PER SNF STAFF PATIENT HAS HER DAUGHTER ABIGAIL HER CONTACT AND SHE IS INVOLVED WITH PATIENT'S CARE. PATIENT GETS DIALYSIS AT [facility] TUESDAYS, THURSDAYS, AND SATURDAYS;TRANSPORTED BY [facility] WITH A SITTER. PATIENT IS NON-VERBAL AND IS IN TOTAL CARE. PATIENT HAS HX. OF DEMENTIA THEREFORE SHE CAN BE CONFUSED AT TIMES. PATIENT IS RECEIVING SPEECH THERAPY CURRENTLY AT THE SNF FACILITY PER MILO PATIENT CAN RETURN TO THEIR FACILITY WHEN SHE IS READY FOR DC. LINDA THANKED HER FOR THE INFORMATION AND WILL FOLLOW UP WITH [facility] WHEN PATIENT IS READY FOR DC.
--- NOTE | 2021-08-17 14:53 | NUR ---
DC PLANNING: THE PATIENT WAS BIBA FROM [facility] WITH C/O SOB AND DESATURATIONS, O2% ON RA WAS 86%, PATIENT PLACED ON 5L OF O2. THE PATIENT HAS H/O ESRD, DM, CAD, CVA, DEMENTIA, ANEMIA, HTN AND FTT. TROPONIN 431, BNP >5000. CXR SHOWS INFILTRATES WITH A LARGE LEFT PLEURAL EFFUSION. CONSULTS WITH PULMONOLOGY, CARDIOLOGY AND NEPHROLOGY ORDERED, PATIENT ADMITTED TO TELEMETRY. CM ATTEMPTED TO SPEAK WITH THE PATIENTS DAUGHTER ABIGAIL AND GRANDDAUGHTER JONES, ADEN LEFT FOR ABIGAIL. CM THEN SPOKE WITH MILO AT [facility], CONFIRMED THAT THE PATIENT GOES TO PSYCHIATRIC AND IS TRANSPORTED BY [facility] WITH A SITTER. THE PATIENT IS TOTAL CARE AND CONFUSED, IS CURRENTLY SKILLED SHE IS RECEIVING SPEECH THERAPY, IS ABLE TO TOLERATE PO'S. PLAN AT THIS TIME IS FOR THE PATIENT TO RETURN TO [facility] WHEN CLINICALLY STABLE, CM WILL FOLLOW. Addendum: 08/18/21 at 1045 by Yani Cook CM DC PLANNING: THE PATIENT IS WAITING FOR A THORACENTESIS WHICH HAS BEEN ORDERED. THE PATIENTS DAUGHTER ABIGAIL WAS CALLED REGARDING POSSIBLE TRANSITION TO HOSPICE, SHE STATES SHE WILL CALL BACK WITH A DECISION. CM WILL FOLLOW. Addendum: 08/22/21 at 1528 by Yani Cook CM DC PLANNING: DC ORDERS, PATIENT TO RETURN TO [facility] TODAY. ROOM 3B, DR GIRON TO FOLLOW, NUMBER TO CALL REPORT IS [phone]. PATIENT WILL BE PICKED UP AT 1800 BY [facility] ([phone]) VIA [employer]. CM LEFT MESSAGES THIS MORNING FOR THE PATIENTS DAUGHTER ABIGAIL AND GRANDDAUGHTER JONES REGARDING RETURN TO [facility] TODAY. CM WILL FOLLOW.
[2021-08-17 16:00] VITALS: BP 125/56
--- NOTE | 2021-08-17 19:18 | NUR ---
ENDORSED PT TO PATTERN DRAFTER NURSE, IN STABLE CONDITION. SATING AT 100% ON O2 VIA NC. PT ALSO ATE 30% OF DINNER, ASSISTED WITH FEEDING
--- NOTE | 2021-08-17 19:27 | NUR ---
PT WAS SEEN AND ASSESSED. PT IS AWAKE AND ALERT, AND PT IS ON 2L NASAL CANNULA WITH SPO2 OF 99%. SCHEDULE TX GIVEN AT THIS TIME AND PT TOLERATED TX WELL. PT IS IN NO RESPIRATORY DISTRESS AT THIS TIME. AUSCULTATION REVEALS CLEAR BILATERAL UPPER LOBE BREATH SOUNDS AND DIMINISHED ON THE LOWER BASE. PLACED PT BACK ON 02 2L AFTER HHN TX. PT IS TOLERATING CURRENT TREATMENT/THERAPY WELL. WILL CONTINUE TO MONITOR PT.
--- NOTE | 2021-08-17 19:28 | NUR ---
RECEIVED BEDSIDE REPORT FROM DAY SHIFT NURSE FOR CONTINUITY OF CARE. PATIENT IS ASLEEP
[2021-08-17 20:00] VITALS: BP 120/51
--- NOTE | 2021-08-17 21:00 | NUR ---
PATIENT DENIED OF PAIN. NO SOB OR DISTRESS, O2 SAT 100% AT ROOM ATMOSPHERE. PATIENT VERBALIZED WANTS TO EAT, NEEDS ATTENDED.
[2021-08-17] MEDS: ATORVASTATIN 20 MG TAB PO SCH (21:49)
[2021-08-17] MEDS: MIRTAZAPINE 15 MG TAB PO SCH (21:49)
[2021-08-18] VITALS: BP 121/61
--- NOTE | 2021-08-18 00:15 | NUR ---
PATIENT IS ASLEEP O2 SAT IS 100% RA. NO SOB OR DISTRESS. NO FACIAL GRIMACING.
[2021-08-18 04:00] VITALS: BP 128/59
[2021-08-18] MEDS: ALBUTEROL SULFATE/IPRATROPIU 3 ML SOL IH SCH ×6 (04:16→22:18)
[2021-08-18 06:33] LABS: MAGNESIUM 2.2 mg/dL (1.8-2.4); PHOSPHORUS 3.9 mg/dL (2.5-4.9)
[2021-08-18 06:41] LABS: ANION GAP 10.7 (8-16); CARBON DIOXIDE 31.4 mmol/L (21-32); POTASSIUM 3.1 mmol/L (3.5-5.1)
[2021-08-18 06:47] LABS: BASOPHILS % (AUTO) 0.5 % (0.0-2.0); EOSINOPHILS # (AUTO) 0.1 K/uL (0-0.4); EOSINOPHILS % (AUTO) 2.5 % (0.0-4.0); HEMATOCRIT 29.4 % (36-48); LYMPHOCYTES # (AUTO) 0.7 K/uL (2.5-16.5); LYMPHOCYTES % (AUTO) 14.2 % (20.5-51.1); MEAN CORPUSCULAR HEMOGLOBIN 35 pg (27-31); MEAN CORPUSCULAR HGB CONC 34 g/dL (33-37); MEAN CORPUSCULAR VOLUME 103.6 fL (80-94); MONOCYTES # (AUTO) 0.5 K/uL (0.8-1.0); MONOCYTES % (AUTO) 10.6 % (1.7-9.3); NEUTROPHILS # (AUTO) 3.3 K/uL (1.8-7.7); NEUTROPHILS % (AUTO) 72.2 % (42.2-75.2); PLATELET COUNT (AUTO) 144 K/uL (140-450); RED BLOOD CELL COUNT(AUTO) 2.84 MIL/uL (4.20-5.40); RED CELL DISTRIBUTION WIDTH 15.7 % (11.6-13.7); WHITE BLOOD COUNT (AUTO) 4.6 K/uL (4.8-10.8)
[2021-08-18 06:51] LABS: CREATININE 4.1 mg/dL (0.6-1.3)
--- NOTE | 2021-08-18 07:30 | NUR ---
PATIENT IS ON STABLE CONDITION, AWAKE, ALERT AND RESPONSIVE IN [place]. SALINE LOCK ON LEFT HAND INTACT AND PATENT. NO SOB OR DISTRESS. ENDORSE TO DAY SHIFT NURSE FOR CONTINUITY OF CARE.
--- NOTE | 2021-08-18 07:44 | NUR ---
RECEIVED PATIENT FROM PM SHIFT WHILE PATIENT REST IN BED W/ BP 199/89. SALINE LOCK 22G L.HAND PATENT; DIALYSIS SITE AT L. CHEST; DIALYSIS SHUNT AT FABIANO. WILL CONTINUE TO MONITOR
[2021-08-18 08:00] VITALS: BP 199/89
[2021-08-18] MEDS: VITAMIN D 400 IU TAB PO SCH (09:18)
[2021-08-18] MEDS: SEVELAMER CARBONATE 800 MG TAB PO SCH ×3 (09:18→17:40)
[2021-08-18] MEDS: amLODIPine 5 MG TAB PO SCH (09:19)
[2021-08-18] MEDS: VIT-B COMP/VIT-C/FOLIC ACID 1 TAB PO SCH (09:19)
[2021-08-18] MEDS: ASPIRIN 81 MG TAB.CHEW PO SCH (09:19)
[2021-08-18 12:00] VITALS: BP 120/62
[2021-08-18] MEDS ORDERED: POTASSIUM CHLORIDE 10 MEQ TABER PO SCH (12:15)
--- NOTE | 2021-08-18 12:33 | NUR ---
RECEIVE GERALD FAIRBANKS ORDER 10,000 UNITS HEPARIN TO EACH DIALYSIS PORTS
--- NOTE | 2021-08-18 14:28 | NUR ---
CHEST X-RAY ORDERED PER PCP REQUEST AFTER US GUIDED THORACENTESIS DONE AT BEDSIDE. WILL CONTINUE TO MONITOR PATIENT.
[2021-08-18 16:00] VITALS: BP 120/70
--- NOTE | 2021-08-18 16:40 | NUR ---
PATIENT HAS BEEN SCREENED AND CATEGORIZED MODERATE NUTRITION RISK. PATIENT WILL BE SEEN WITHIN 3-5 DAYS OF ADMISSION. 08/18/21 REVIEWED BY JAYLA BELTRAN RD
--- NOTE | 2021-08-18 19:25 | NUR ---
PT WAS SEEN AND ASSESSED. PT IS ON ROOM AIR WITH SPO2 OF 94%. SCHEDULE TX GIVEN AT THIS TIME AND PT TOLERATED TX WELL. PT IS IN NO RESPIRATORY DISTRESS AT THIS TIME. AUSCULTATION REVEALS CLEAR BILATERAL UPPER LOBE BREATH SOUNDS AND DIMINISHED ON THE LOWER BASE. WILL CONTINUE TO MONITOR PT.
--- NOTE | 2021-08-18 19:36 | NUR ---
ENDORSE PT TO PM SHIFT NURSE WHILE PATIENT REST IN BED W/ NO ACUTE DISTRESS NOTED; SALINE LOCK 22G L.HAND PATENT; DIALYSIS SITE AT L. IJ, DIALYSIS SHUNT AT FABIANO.
--- NOTE | 2021-08-18 19:55 | NUR ---
GET REPORT FROM MORNING NURSE BRIAN, PATIENT LYING ON BED, PATIENT IS ALERT AND ORIENTED X 1 , NO ANY COMPLAIN OF PAIN OR SHORTNESS OF BREATH AT THIS TIME, CALL LIGHT IS WITHIN THE REACH ,WILL CONTINUE TO MONITOR PATIENT.
[2021-08-18 20:00] VITALS: BP 146/66
[2021-08-18] MEDS: MIRTAZAPINE 15 MG TAB PO SCH (20:42)
[2021-08-18] MEDS: ATORVASTATIN 20 MG TAB PO SCH (20:42)
[2021-08-18] MEDS: hydrALAZINE 25 MG TAB PO SCH (20:43)
--- NOTE | 2021-08-18 21:00 | NUR ---
PATIENT IS LYING ON BED, VITAL SIGN IS WITHIN THE NORMAL RANGE, ALL SCHEDULE MEDICATION IS GIVEN PER DOCTOR ORDER,CALL LIGHT IS WITHIN THE REACH, WILL CONTINUE TO MONITOR PATIENT
[2021-08-19] VITALS: BP 121/51
[2021-08-19] MEDS ORDERED: ALBUTEROL SULFATE/IPRATROPIU 3 ML SOL IH PRN
[2021-08-19 04:00] VITALS: BP 146/64
--- NOTE | 2021-08-19 05:28 | NUR ---
PATIENT IS LYING ON BED, VITAL SIGN IS WITHIN THE NORMAL RANGE ,CALL LIGHT IS WITHIN THE REACH ,WILL CONTINUE TO MONITOR PATIENT.
[2021-08-19 06:38] LABS: BASOPHILS % (AUTO) 0.5 % (0.0-2.0); EOSINOPHILS # (AUTO) 0.1 K/uL (0-0.4); EOSINOPHILS % (AUTO) 1.1 % (0.0-4.0); HEMATOCRIT 38.7 % (36-48); HEMOGLOBIN 12.9 g/dL (12.0-16.0); LYMPHOCYTES # (AUTO) 1.3 K/uL (2.5-16.5); LYMPHOCYTES % (AUTO) 19.2 % (20.5-51.1); MEAN CORPUSCULAR HEMOGLOBIN 35 pg (27-31); MEAN CORPUSCULAR HGB CONC 33 g/dL (33-37); MEAN CORPUSCULAR VOLUME 105.4 fL (80-94); MONOCYTES # (AUTO) 0.6 K/uL (0.8-1.0); MONOCYTES % (AUTO) 8.4 % (1.7-9.3); NEUTROPHILS # (AUTO) 4.8 K/uL (1.8-7.7); NEUTROPHILS % (AUTO) 70.8 % (42.2-75.2); PLATELET COUNT (AUTO) 141 K/uL (140-450); RED BLOOD CELL COUNT(AUTO) 3.67 MIL/uL (4.20-5.40); RED CELL DISTRIBUTION WIDTH 15.8 % (11.6-13.7); WHITE BLOOD COUNT (AUTO) 6.8 K/uL (4.8-10.8)
[2021-08-19 06:43] LABS: ANION GAP 13.1 (8-16); CARBON DIOXIDE 26.5 mmol/L (21-32); CREATININE 3.5 mg/dL (0.6-1.3); POTASSIUM 5.6 mmol/L (3.5-5.1)
--- NOTE | 2021-08-19 07:20 | NUR ---
RECEIVED REPORT FROM AVIONICS SUPERVISOR NURSE. PT IS AOX1. PT HAS LEFT IJ SHUNT. PT RIGHT SHUNT NOT WORKING. SKIN IS INTACT. DISCUSSED PLAN OF CARE. WILL CONTINUE TO MONITOR.
--- NOTE | 2021-08-19 07:48 | NUR ---
GAVE REPORT TO MORNING NURSE BRANDON FOR CONTINUOS OF CARE, PATIENT IS SABLE.
[2021-08-19 08:00] VITALS: BP 143/62
[2021-08-19] MEDS: SEVELAMER CARBONATE 800 MG TAB PO SCH ×3 (08:00→17:00)
[2021-08-19] MEDS: VITAMIN D 400 IU TAB PO SCH (09:00)
[2021-08-19] MEDS: hydrALAZINE 25 MG TAB PO SCH ×2 (09:00→21:06)
[2021-08-19] MEDS: amLODIPine 5 MG TAB PO SCH (09:00)
[2021-08-19] MEDS: VIT-B COMP/VIT-C/FOLIC ACID 1 TAB PO SCH (09:00)
[2021-08-19] MEDS: ASPIRIN 81 MG TAB.CHEW PO SCH (09:00)
--- NOTE | 2021-08-19 09:00 | NUR ---
PT REFUSED TO TAKE ANYTHING BY MOUTH, INCLUDING MEDS DUE. HEPARIN SODIUM 5000UNITS GIVEN.
[2021-08-19 12:00] VITALS: BP 110/32
--- NOTE | 2021-08-19 12:00 | NUR ---
PT AWAKE, LYING ON HER BED. NO SIGNS OF DISTRESS AT THIS TIME. WILL CONTINUE TO MONITOR.
--- NOTE | 2021-08-19 14:30 | NUR ---
STUDENT NURSES GAVE BED BATH AND CHANGED PT LINENS.
[2021-08-19] MEDS ORDERED: SODIUM POLYSTYRENE 15 GM/60 ML UDBTL PO SCH (15:00)
[2021-08-19 16:00] VITALS: BP 136/59
--- NOTE | 2021-08-19 16:30 | NUR ---
PT REFUSED TO TAKE PO MEDS BY MOUTH.
--- NOTE | 2021-08-19 19:15 | NUR ---
GAVE REPORT TO DRAW BENCH OPERATOR NURSE. PT IS STABLE.
--- NOTE | 2021-08-19 19:25 | NUR ---
RECEIVED BEDSIDE REPORT FROM DAY SHIFT NURSE FOR CONTINUITY OF PATIENT CARE.
[2021-08-19 20:00] VITALS: BP 137/63
[2021-08-19] MEDS: ATORVASTATIN 20 MG TAB PO SCH (21:07)
[2021-08-19] MEDS: MIRTAZAPINE 15 MG TAB PO SCH (21:10)
--- NOTE | 2021-08-19 22:00 | NUR ---
PATIENT IS STABLE AND COOPERATIVE. TAKING HER NIGHT MEDS. ASPIRATION PRECAUTION. NO ASPIRATION OCCURRENCE.
[2021-08-20] VITALS: BP 157/90
--- NOTE | 2021-08-20 02:00 | NUR ---
PATIENT IS ASLEEP. NO SOB OR DISTRESS.
[2021-08-20 04:00] VITALS: BP 113/58
--- NOTE | 2021-08-20 07:15 | NUR ---
PATIENT IS ON STABLE CONDITION. BM THIS AM, SOFT. NO COMPLAINTS OF PAIN OR DISCOMFORT. NO SOB OR DISTRESS. ENDORSED TO DAY SHIFT NURSE FOR CONTINUITY FOR PATIENT'S CARE.
--- NOTE | 2021-08-20 07:25 | NUR ---
RECEIVED REPORT FROM NIGHTSHIFT NURSE FOR CONTINUITY OF CARE. PT WAS AWAKE, A/OX1, BREATHING UNLABORED ON RA. PT IS BEDBOUND AND INCONTINENT. SKIN IS WARM, DRY AND INTACT. PT HAS NO PERIPHERAL IV ACCESS, RIGHT AV SHUNT NOT WORKING PER NIGHTSHIFT NURSE, AND A RIGHT IJ CÉSAR CATHETER. PT IS STABLE, PLAN OF CARE DISCUSSED.
[2021-08-20 07:29] LABS: ANION GAP 10.3 (8-16); CARBON DIOXIDE 31.9 mmol/L (21-32); POTASSIUM 4.2 mmol/L (3.5-5.1)
[2021-08-20 07:40] LABS: BASOPHILS % (AUTO) 0.8 % (0.0-2.0); EOSINOPHILS # (AUTO) 0.2 K/uL (0-0.4); EOSINOPHILS % (AUTO) 3.4 % (0.0-4.0); HEMATOCRIT 33.3 % (36-48); HEMOGLOBIN 11.2 g/dL (12.0-16.0); LYMPHOCYTES # (AUTO) 1.2 K/uL (2.5-16.5); LYMPHOCYTES % (AUTO) 22.2 % (20.5-51.1); MEAN CORPUSCULAR HEMOGLOBIN 35 pg (27-31); MEAN CORPUSCULAR HGB CONC 34 g/dL (33-37); MEAN CORPUSCULAR VOLUME 103.1 fL (80-94); MONOCYTES # (AUTO) 0.4 K/uL (0.8-1.0); MONOCYTES % (AUTO) 7.6 % (1.7-9.3); NEUTROPHILS # (AUTO) 3.7 K/uL (1.8-7.7); PLATELET COUNT (AUTO) 123 K/uL (140-450); RED BLOOD CELL COUNT(AUTO) 3.23 MIL/uL (4.20-5.40); RED CELL DISTRIBUTION WIDTH 15.1 % (11.6-13.7); WHITE BLOOD COUNT (AUTO) 5.6 K/uL (4.8-10.8)
[2021-08-20 07:42] LABS: CREATININE 4.9 mg/dL (0.6-1.3)
[2021-08-20 08:00] VITALS: BP 113/47
[2021-08-20] MEDS: SEVELAMER CARBONATE 800 MG TAB PO SCH ×4 (08:00→15:39)
--- NOTE | 2021-08-20 08:40 | NUR ---
NOTIFIED L[place]IS, HD DIALYSIS, FOR HD SCHEDULED TODAY. SHE STATED SHE WAS AWARE AND WILL BE HERE TODAY FOR DIALYSIS.
[2021-08-20] MEDS: hydrALAZINE 25 MG TAB PO SCH ×3 (09:00→21:35)
[2021-08-20] MEDS: amLODIPine 5 MG TAB PO SCH ×2 (09:00→09:21)
--- NOTE | 2021-08-20 09:00 | NUR ---
HELD BP MEDS DUE TO DIALYSIS. HD NURSE AT BEDSIDE. RENVELA NOT GIVEN BECAUSE PT CAN ONLY SWALLOW CRUSHED MEDS AND THIS MADE CANNOT BE CRUSHED. CALLED PHARMACIST AND THEY STATED THEY DO NOT HAVE ANOTHER FORM OF THIS MEDICATION AT THE FACILITY. WILL NOTIFY .
--- NOTE | 2021-08-20 09:09 | NUR ---
(08/20/21) RD INITIAL ASSESSMENT COMPLETED PLEASE REFER TO NUTRITION ASSESSMENT UNDER CARE ACTIVITY FOR ESTIMATED NUTRITIONAL NEEDS. RD RECOMMENDATIONS: 1. CONTINUE RENAL PUREE DIET TOLERATED 2. ENCOURAGE PO INTAKES AND PROVIDE ASSISTANCE NEEDED D/T PTS ALTERED MENTAL STATUS R/T HX DEMENTIA 3. CONSULT RDN PRN. 4. RD WILL F/U 3-5 DAYS; MODERATE RISK. JATINDER DUFFY, , RDN
[2021-08-20] MEDS: VITAMIN D 400 IU TAB PO SCH (09:22)
[2021-08-20] MEDS: VIT-B COMP/VIT-C/FOLIC ACID 1 TAB PO SCH (09:23)
[2021-08-20] MEDS: ASPIRIN 81 MG TAB.CHEW PO SCH (09:25)
[2021-08-20] MEDS ORDERED: ALBUMIN HUMAN 25% 100 ML IV STA (09:32)
--- NOTE | 2021-08-20 09:32 | NUR ---
HD NURSE CONTACTED DR. BURGOS VIA TELEPHONE. INFORMED HIM OF THE BP DROPPING TO 64/44. HE ORDERED STAT ALBUMIN 25% 100 ML TOTAL X 2 DOSES STAT FOR A TOTAL OF 200 ML. WILL ADMINISTER SOON VERIFIED.
[2021-08-20] MEDS ORDERED: ALBUMIN HUMAN 25% 100 ML IV SCH (09:36)
[2021-08-20] MEDS: ALBUMIN HUMAN 25% 100 ML IV SCH ×2 (09:47→09:48)
--- NOTE | 2021-08-20 09:47 | NUR ---
FIRST BOTTLE OF 100 ML ALBUMIN 25% GIVEN BY HD NURSE AT BEDSIDE. BP IMPROVED TO 134/77. HR IS 79. O2 SAT IS 98%. PT IS STABLE AT THIS TIME. NEXT BOTTLE OF ALBUMIN 100 ML TO BE STARTED BY HD NURSE.
--- NOTE | 2021-08-20 11:57 | NUR ---
HD NURSE STATED THE HD WAS COMPLETE. ONE LITER WAS REMOVED OF FLUID. NO DISTRESS NOTED. PT IS RESTING COMFORTABLY. NO BLEEDING AT DIALYSIS SITE. NO BLEEDING AT THORACENTESIS SITE. DRESSING DRY AND INTACT. WILL CONTINUE TO MONITOR.
[2021-08-20 12:00] VITALS: BP 98/77
--- NOTE | 2021-08-20 14:00 | NUR ---
PT VISUALLY ASSESSED, CURRENTLY SLEEPING, EASILY AROUSED. PT IS STABLE, CLEAN, AND DRY. DENIES ANY PAIN.
--- NOTE | 2021-08-20 16:02 | NUR ---
NOTIFIED DR. BURCH THAT SEVELMAR CARBONTE WAS NOT GIVEN TID BECAUSE IT CANNOT BE CRUSHED AND PT CAN ONLY SWALLOW CRUSHED MEDICATIONS. INFORMED HER THE PHARMACIST STATED THERE IS NO ALTERNATIVE.
[2021-08-20 17:00] VITALS: BP 120/57
--- NOTE | 2021-08-20 19:10 | NUR ---
ENDORSED PT TO HUMAN SERVICES PROGRAM SPECIALIST NURSE FOR CONTINUITY OF CARE. PT IS STABLE. PLAN OF CARE DISCUSSED.
--- NOTE | 2021-08-20 19:30 | NUR ---
RECEIVED REPORT FROM RN DAYSHIFT NURSE AT BEDSIDE FOR CONTINUITY OF CARE, PT LYING IN BED AWAKE AND ALERT NO S/S OF PAIN OR DISTRESS NOTED. PT IS ON ROOM AIR SHE HAS A RIGHT UPPER AV SHUNT AND LEFT SUBCLAVIAN TUNNEL CATHETER FOR HD. PT HAS NO IV SITE. ALL ORDERED PRECAUTIONS IN PLACE.
[2021-08-20 20:00] VITALS: BP 126/60
--- NOTE | 2021-08-20 20:30 | NUR ---
PT IN BED SHE WAS TURNED AND REPOSITIONED IN BED V/S FOLLOWS T 98.4 P 78 R 20 B/P 126/66 02 100% ON ROOM AIR. ALL ORDERED PRECAUTIONS IN PLACE.
--- NOTE | 2021-08-20 21:30 | NUR ---
PT WAS GIVEN ORDERED HEPARIN SQ SHOT FOR DVT PREVENTION. PT EDUCATED REGARDING PURPOSE OF MEDICATION , BUT SHE IS UNABLE TO VERBALIZE UNDERSTANDING. PT ALSO GIVEN ORDERED REMERON, LIPITOR AND APRESOLINE AGAIN , PT WAS EDUCATED REGARDING PURPOSE OF MEDICATION , HOWEVER, SHE IS UNABLE TO VERBALIZE UNDERSTANDING OF MEDICATION. SITE OF THE THORACENTESIS DRESSING IS DRY AND INTACT. ALL ORDERED PRECAUTIONS IN PLACE.
[2021-08-20] MEDS: MIRTAZAPINE 15 MG TAB PO SCH (21:33)
[2021-08-20] MEDS: ATORVASTATIN 20 MG TAB PO SCH (21:34)
--- NOTE | 2021-08-20 22:45 | NUR ---
PT WAS TURNED, CHANGED AND REPOSITIONED IN BED. PT WAS ASKING FOR FOOD AND GIVEN PUDDING. ALL ORDERED PRECAUTIONS IN PLACE.
[2021-08-21] VITALS: BP 122/40
--- NOTE | 2021-08-21 00:30 | NUR ---
PT IN BED SHE IS RESTING WITH EYES CLOSED BUT AROUSABLE TO NAME AND LIGHT TOUCH V/S FOLLOWS: T 97.5 P 68 R 20 B/P 122/40 02 100%. ALL ORDERED PRECAUTIONS IN PLACE.
[2021-08-21 04:00] VITALS: BP 145/55
--- NOTE | 2021-08-21 04:30 | NUR ---
PT WAS TURNED, CHANGED AND REPOSITIONED IN BED NO S/S O F PAIN OR DISTRESS NOTED. V/S FOLLOWS: T 97.7 P 69 R 20 B/P 145/55 02 100% ON ROOM AIR. ALL ORDERED PRECAUTIONS IN PLACE.
--- NOTE | 2021-08-21 07:15 | NUR ---
RECEIVED REPORT FROM NIGHTSHIFT NURSE. DISCUSSED CONTINUITY OF PLAN OF CARE. PT IS STABLE, VISUALLY ASSESSED. PT CURRENTLY SLEEPING, BUT AROUSED BY NAME AND SHAKING. A/OX1, VERY SOFT SPEECH. SKIN OVERALL INTACT, DTI IDENTIFIED ON SACRUM, DRESSED BY NIGHTSHIFT NURSE. PT DENIES PAIN, FLACC SCALE O. BREATHING EVEN REGULAR, UNLABORED. PT INCONTINENT, HAD 1X BM PER NIGHTSHIFT NURSE.
[2021-08-21 08:00] VITALS: BP 147/75
[2021-08-21] MEDS: SEVELAMER CARBONATE 800 MG TAB PO SCH ×3 (08:00→13:11)
[2021-08-21] MEDS: ASPIRIN 81 MG TAB.CHEW PO SCH (08:13)
[2021-08-21] MEDS: VIT-B COMP/VIT-C/FOLIC ACID 1 TAB PO SCH (08:13)
[2021-08-21] MEDS: hydrALAZINE 25 MG TAB PO SCH ×2 (08:17→21:48)
[2021-08-21] MEDS: VITAMIN D 400 IU TAB PO SCH (08:17)
[2021-08-21] MEDS: amLODIPine 5 MG TAB PO SCH (08:18)
--- NOTE | 2021-08-21 08:19 | NUR ---
DID NOT ADMINISTER RENVELA. CANNOT CRUSH MED, PT UNABLE TO SWALLOW WHOLE PILL. PHARMACY DOES NOT CARRY ALTERNATIVES, MD AWARE.
--- NOTE | 2021-08-21 10:00 | NUR ---
PT VISUALLY ASSESSED. PT CURRENTLY SLEEPING, EASILY AROUSED BY NAME AND SHAKING. PT WAS ABLE TO POKE CHEEKS TO VERBALIZE HUNGER. PT DENIES PAIN, SHOOK HER HEAD NO. PT OVERALL STABLE.
--- NOTE | 2021-08-21 10:02 | NUR ---
CALLED DAUGHTER ABIGAIL MARROQUIN, SEE CHART FOR PHONE NUMBER, AND LEFT VOICEMAIL MESSAGE. DAUGHTER DID NOT ANSWER PHONE. ASKED HER TO CALL BACK TO DISCUSS THE STATUS OF THE PATIENT DOCTOR WANTS TO INQUIRE ABOUT POSSIBLY HOSPICE CARE. WILL WAIT FOR CALL BACK.
[2021-08-21 12:00] VITALS: BP 113/56
--- NOTE | 2021-08-21 12:00 | NUR ---
PT VISUALLY ASSESSED. PT CURRENTLY AWAKE, AND REQUIRES BED BATH AND LINEN CHANGE DUE TO INCONTINENCE. PT DENIES ANY PAIN. PT OVERALL STABLE.
--- NOTE | 2021-08-21 14:42 | NUR ---
PT VISUALLY ASSESSED. PT CURRENTLY AWAKE AND COMPLAINING OF HUNGER, STATING "HAMBRE/HUNGRY" WHILE POKING HER CHEEKS. PER RN OTOLARYNGOLOGY, SHE ATE 100% OF HER MEAL, BUT REFUSED ORAL FLUIDS. PT GIVEN 2X CUPS OF PUDDING. PT OVERALL STABLE, SKIN INTACT, CLEAN AND DRY.
[2021-08-21 16:00] VITALS: BP 133/56
--- NOTE | 2021-08-21 16:45 | NUR ---
PT VISUALLY ASSESSED. PT CURRENTLY SLEEPING, EASILY AROUSED BY NAME AND SHAKING. PT STATED SHE WANTED "2 EGGS" BUT OTHERWISE DENIED ANY PAIN OR DISCOMFORT. SKIN DRY AND INTACT. PT STABLE.
--- NOTE | 2021-08-21 19:20 | NUR ---
RECEIVED PT REPORT FROM AM DAVONTE TORRES FOR CONTINUITY OF CARE. PT AWAKE LYING IN BED. HAS L U CHEST CÉSAR CATH FOR DIALYSIS AND R AV SHUNT NON OPERATIONAL STILL HAS GOOD BRUIT AND THRILL. INCONTINENT OF URINE AND SCANT BM. CLEANED UP. NEW SACRAL FOAM DRESSING APPLIED. 10 MINUTES LATER HAD LARGE BROWN EMESIS APPROX 150 CC. COMPLETE LINEN CHANGE ,SPONGE BATH GIVEN PLUS PT REPOSITIONED. ALL SAFETY MEASURES IN PLACE. CONTINUE TO MONITOR.
--- NOTE | 2021-08-21 19:30 | NUR ---
ENDORSED PT TO RECORDING CLERK NURSE FOR CONTINUITY OF CARE. PT IS STABLE. PLAN OF CARE DISCUSSED.
[2021-08-21 20:00] VITALS: BP 112/61
--- NOTE | 2021-08-21 21:00 | NUR ---
LIMA MARTINEZ. HAD ANOTHER LARGE BROWN EMESIS LOOKED LIKE STOOL BUT NOT SMELLY. SKIN CARE AND LINEN CHANGE DONE. EVENTUALLY TOOK HS MEDS CRUSHED IN PUDDING . PT TOLERATED THIS WITH NO REGURGITATION. REPOSITIONED ALL SAFETY MEASURES IN PLACE. WILL CONTINUE TO MONITOR.
[2021-08-21] MEDS: MIRTAZAPINE 15 MG TAB PO SCH (21:49)
[2021-08-21] MEDS: ATORVASTATIN 20 MG TAB PO SCH (21:49)
[2021-08-22] VITALS: BP 113/56
--- NOTE | 2021-08-22 01:30 | NUR ---
FREQ ROUNDS. PT SLEEPING RR EVEN AND UNLABORED WITH EQUAL CHEST RISE. ALL SAFETY MEASURES IN PLACE. WILL CONTINUE TO MONITOR.
[2021-08-22 04:00] VITALS: BP 110/67
--- NOTE | 2021-08-22 05:30 | NUR ---
PT AWAKE HAD ANOTHER BM AND BROWN EMESIS APPROX: 100CC NEW GOWN AND LINEN CHANGE. LOTION APPLIED TO ALL BONY PROMINENCES. PT WAS OFF LOADED TO PREVENT MORE PRESSURE WOUNDS. ENDORSE TO DAY SHIFT TO F/U WITH DOCTOR RE: PT'S DIAGNOSIS AND BLLOD AND WOUND CULTURES. ALL SAFETY MEASURES IN PLACE. WILL CONTINUE TO MONITOR.
--- NOTE | 2021-08-22 07:10 | NUR ---
RECEIVED REPORT FROM CADDY MASTER NURSE. PT IS A&OX1, ON ROOM AIR. PT HAS RIGHT UA FISTULA, AND IS NOT WORKING; & LEFT SHEELA CATH. PT LAST BM WAS THIS MORNING. ALL SAFETY MEASURES DONE, CALL LIGHT WITHIN REACH. DISCUSSED PLAN OF CARE. WILL CONTINUE TO MONITOR.
--- NOTE | 2021-08-22 07:28 | NUR ---
ENDORSED PT REPORT TO AM RN BRANDON FOR CONTINUITY OF CARE. PT IS STABLE.
[2021-08-22 08:00] VITALS: BP 122/67
[2021-08-22] MEDS: SEVELAMER CARBONATE 800 MG TAB PO SCH ×3 (08:00→17:00)
[2021-08-22] MEDS: VITAMIN D 400 IU TAB PO SCH (09:00)
[2021-08-22] MEDS: hydrALAZINE 25 MG TAB PO SCH (09:00)
[2021-08-22] MEDS: ASPIRIN 81 MG TAB.CHEW PO SCH (09:00)
[2021-08-22] MEDS: VIT-B COMP/VIT-C/FOLIC ACID 1 TAB PO SCH (09:00)
[2021-08-22] MEDS: amLODIPine 5 MG TAB PO SCH (09:00)
--- NOTE | 2021-08-22 12:30 | NUR ---
PT REFUSED TO TAKE MED.
[2021-08-22 16:55] VITALS: BP 118/66
--- NOTE | 2021-08-22 17:30 | NUR ---
CLEANED AND CHANGED DRESSING ON PT SHEELA CATH.
--- NOTE | 2021-08-22 18:05 | NUR ---
GAVE REPORT TO CORNELIUS FOR GIANNI HARTLEY. PT IS STABLE AND DISCUSSED PLAN OF CARE.
[2021-08-22 18:10] VITALS: BP 111/57
--- NOTE | 2021-08-22 18:13 | NUR ---
PT WAS PICKED UP AND DISCHARGED TO [facility]. REMOVED ALL ARM BANDS. PT PERSONAL BELONGINGS WERE IN POSSESSION. PT IS STABLE.
== END 2021-08-22 18:15 | DRG 291 ==
LOC: MED 09:41 → MTU 11:52
PROVIDERS: ADMIT Family Medicine; ATTEND Family Medicine
PROC: 5A1D70Z Performance of Urinary Filtration, Intermittent, Less than 6 Hours Per Day (ICD-10-PCS; 2021-08-16)
PROC: 0W9B3ZZ Drainage of Left Pleural Cavity, Percutaneous Approach (ICD-10-PCS; principal; 2021-08-18)
PROC: 5A1D70Z Performance of Urinary Filtration, Intermittent, Less than 6 Hours Per Day (ICD-10-PCS; 2021-08-18)
PROC: 5A1D70Z Performance of Urinary Filtration, Intermittent, Less than 6 Hours Per Day (ICD-10-PCS; 2021-08-20)
DX: I13.2 Hypertensive heart and chronic kidney disease with heart failure and with stage 5 chronic kidney disease, or end stage renal disease (principal); I50.43 Acute on chronic combined systolic (congestive) and diastolic (congestive) heart failure; J96.01 Acute respiratory failure with hypoxia; G93.41 Metabolic encephalopathy; N18.6 End stage renal disease; N17.0 Acute kidney failure with tubular necrosis; I69.354 Hemiplegia and hemiparesis following cerebral infarction affecting left non-dominant side; J91.8 Pleural effusion in other conditions classified elsewhere; I24.8 Other forms of acute ischemic heart disease; Z68.1 Body mass index [BMI] 19.9 or less, adult; Z66 Do not resuscitate; Z20.822 Contact with and (suspected) exposure to COVID-19; D63.1 Anemia in chronic kidney disease; E83.39 Other disorders of phosphorus metabolism; E83.41 Hypermagnesemia; R62.7 Adult failure to thrive; I25.10 Atherosclerotic heart disease of native coronary artery without angina pectoris; F01.50 Vascular dementia, unspecified severity, without behavioral disturbance, psychotic disturbance, mood disturbance, and anxiety; J45.909 Unspecified asthma, uncomplicated; E88.09 Other disorders of plasma-protein metabolism, not elsewhere classified; E87.5 Hyperkalemia; Z87.81 Personal history of (healed) traumatic fracture; Z79.82 Long term (current) use of aspirin; Z79.899 Other long term (current) drug therapy; Z99.2 Dependence on renal dialysis
CPT/HCPCS: 36415; 71045; 76604; 76942; 80048; 80053; 83605; 83735; 83880; 84100; 84443; 84484; 85025; 85610; 85730; 87040; 87081; 92526; 93005; 94640; 99291; J0360; J1644; J2001; P9046; Q0092